=== PATIENT | female | born 1970 | race Caucasian/White ===

== ENCOUNTER → 2018-05-15 11:36 | Outpatient (CLI) | payer OTHER, SELFPAY ==
--- NOTE | 2018-05-15 11:42 | XR_ITS ---
XR ankle RT min 3V HISTORY: ITS.REASON: TWISTED LEG WALKING DOWN STEPS, RT LEG SWELLING ORDERING PHYSICIAN: Priscilla Neumann PATIENT AGE: 47 years Comparison: None FINDINGS: No fracture or dislocation. No lytic or blastic change. There is normal mineralization.. The joint spaces are well-preserved. No significant degenerative/arthritic changes. No erosive changes evident. IMPRESSION: Negative ankle, no acute finding
--- NOTE | 2018-05-15 11:42 | XR_ITS ---
XR femur RT 2V CLINICAL INDICATION: Pain and swelling ITS.REASON: TWISTED LEG WALKING DOWN STEPS, RT LEG SWELLING ORDERING PHYSICIAN: Priscilla Neumann PATIENT AGE: 47 years Comparison: None FINDINGS: No bony or joint abnormality. IMPRESSION: Negative right femur
--- NOTE | 2018-05-15 11:42 | XR_ITS ---
XR knee RT 3V HISTORY: Pain and swelling ITS.REASON: TWISTED LEG WALKING DOWN STEPS, RT LEG SWELLING ORDERING PHYSICIAN: Priscilla Neumann PATIENT AGE: 47 years COMPARISON: None FINDINGS: No fracture or dislocation. No lytic or blastic change. Normal mineralization. No significant arthritic changes evident. No other significant findings IMPRESSION: Negative Knee
--- NOTE | 2018-05-15 11:42 | XR_ITS ---
XR tibia fibula RT 2V CLINICAL INDICATION: Pain and swelling ITS.REASON: TWISTED LEG WALKING DOWN STEPS, RT LEG SWELLING ORDERING PHYSICIAN: Priscilla Neumann PATIENT AGE: 47 years Comparison: None FINDINGS: There is a small area of hyperostosis involving the proximal tibia is fairly and may be due to tug lesion. No fracture or dislocation. IMPRESSION: No acute finding
== END ==
PROVIDERS: PCP Nurse Practitioner; Visit Provider Nurse Practitioner
DX: M79.89 Other specified soft tissue disorders (principal)
CPT/HCPCS: 73552; 73562; 73590; 73610

== ENCOUNTER → 2018-12-21 08:47 | Outpatient (POV) | payer BC, SELFPAY | PROVIDERS: Visit Provider Specialist | DX: I70.213 Atherosclerosis of native arteries of extremities with intermittent claudication, bilateral legs (principal) | CPT/HCPCS: 95886; 95909 ==

== ENCOUNTER → 2018-12-29 11:57 | Outpatient (CLI) | payer BC, MEDICAID, SELFPAY | PROVIDERS: PCP Family Medicine; Visit Provider Specialist | DX: G47.30 Sleep apnea, unspecified (principal); G47.19 Other hypersomnia; R06.83 Snoring; R51 Headache | CPT/HCPCS: G0399 ==

== ENCOUNTER → 2018-12-30 14:49 | Outpatient (CLI) | payer BC, MEDICAID, SELFPAY ==
--- NOTE | 2018-12-30 14:51 | MR_ITS ---
MR angio head wo con CLINICAL INDICATION: Severe headache on the left Constant headaches ITS.REASON: evaluation for aneurysm, vascular malformation ORDERING PHYSICIAN: Kaur Hurley MD PATIENT AGE: 48 years Comparison:, 08/25/2017 TECHNIQUE: 3-D multislab [id number] images obtained without contrast with multi slab MIP reformats FINDINGS: No embolism, arteriovenous malformation, or intracranial occlusive process evident. No significant anatomical variants. Single shot MRV shows no evidence of sagittal sinus thrombosis. IMPRESSION: Negative MRA of the brain
== END ==
PROVIDERS: PCP Family Medicine; Visit Provider Specialist
DX: M54.2 Cervicalgia (principal); R51 Headache
CPT/HCPCS: 70544

== ENCOUNTER 2018-12-30 15:29 | Outpatient (RCR) | payer BC, MEDICAID, SELFPAY ==
--- NOTE | 2018-12-30 16:47 | HMH.PTOPEV ---
PT Outpatient Evaluation Rehab PT Outpatient Evaluation Start: 12/30/18 15:42 Freq: Status: Active Protocol: Document 12/30/18 16:16 ANGEL (Rec: 12/30/18 16:32 [email or web address] [id number]) Electronically Signed By Lance Meyer, PT 12/30/18 16:16 Outpatient Therapy Subjective History Subjective History Patient is a 48 year old female presenting to outpatient PT with reports of chronic cervical spine pain and bilateral wrist/hand numbness/tingling/pain. Pt reports hx of double segment cervical fusion approximately 4 years ago. She was most recently diagnosed with CTS bilaterally after NCV study. Comorbidities include COPD. Chief Complaint Pain Stiff Paresthesia Weakness Decreased Endbander Strength Symptom Type Ache Numbness Tingling Symptoms Relieved By Rest/Positioning Symptoms Aggravated By Lifting Prior Functional Limitations None Current Functional Limitations Lifting Symptom Description Constant but Variable Level of pain today (0-10) 5 Pain scale - at its best (0-10) 2 Pain scale - at its worst (0-10) 9 Cervical Eval Palpation Cervical Muscles L Upper Trapezius Cervical/Thoracic Palpation Findings Tenderness Posture Head/C-Spine Posture Sitting Position C-Spine Flattened Head/C-Spine Posture Standing Position C-Spine Flattened Flexibility Deficits Upper Trapezius Muscle Length (L) Moderate Tightness Levaetor Scapulae Muscle Length (L) Moderate Tightness Pectoralis Minor Muscle Length (L) Moderate Tightness Passive Joint Mobility Cervical PIVM Dec: R OA L OA R AA L AA R C2/3 L C2/3 R C3/4 L C3/4 R C4/5 L C4/5 R C5/6 L C5/6 R C6/7 L C6/7 R C7/T1 L C7/T1 AROM Cervical Spine Extension Active Range of 44 Mo
== END 2018-12-30 16:05 | disposition home or self-care (01) ==
LOC: PT 15:29
PROVIDERS: Visit Provider Specialist
DX: G56.03 Carpal tunnel syndrome, bilateral upper limbs (principal); M54.2 Cervicalgia
CPT/HCPCS: 97163

== ENCOUNTER → 2020-01-12 09:29 | Outpatient (CLI) | payer BC, OTHER, SELFPAY ==
--- NOTE | 2020-01-12 | CA_ITS ---
APPROVED REPORT Exam: Exercise Treadmill Technologist: Maine Borrego Ht: 5 ft 3 in Wt: 210 lbs BSA: 1.97 m2 HR: 87 bpm BP: 101/62 mmHg Indications: Shortness of Breath Medical History Medications: Omeprazole,,,,, Aspirin,,,,, TopIRAMATE,,,,, Estradiol,,,,, Tramadol,,,,, Cyclobenzaprine,,,,, Venlafaxine,,,,, DiPHENHYDRAMINE,,,,, MetaCLOPRAMIDE,,,,, NYstatin,,,,, Stress Test Details Test: Cosme HR Resting HR: 88 bpm Max Heart Rate (APMHR): 172 bpm Max HR Achieved: 123 bpm Target HR (85% APMHR): 146 bpm % of APMHR: 71 Recovery HR: 93 bpm BP Resting BP: 101.0/62.0 mmHg Max BP: 160.0/80.0 mmHg Recovery BP: 129.0/52.0 mmHg ECG Clinical Exercise duration: 04:02 min Highest Stage Achieved: Exercise capacity: 7.0 METs Stress ECG Conclusion Resting ECG: Normal sinus rhythm, right axis deviation Patient exercised 04:02 on Cosme Protocol. Test stopped due to shortness of air, fatigue. Symptoms: No chest pain Arrhythmias/Ectopy: Rare PAC ST-T Changes: Allowing for motion artifact during exercise, the ST response appears to be within normal for heart rate achieved. Conclusion: Normal GXT for heart rate achieved (72% of predicted maximum). GXT only (no imaging). Poor exercise tolerance. Test Summary REST . . . . . . . Sitting REST . . . . . . . Standing REST 07:12 0.0 0.0 88 . 101/ 62 . . Stage 1 01:00 10.0 1.7 103 . . . . Stage 1 02:00 10.0 1.7 110 . . . . Stage 1 . . . . . . . Shortness of Breath Stage 1 03:00 10.0 1.7 116 . 160/ 80 . . Stage 2 01:00 12.0 2.5 122 . . . . Stage 2 01:02 12.0 2.5 122 . . . Stop exercise at 04:02 RECOVERY 01:00 0.0 0.0 118 . . . . RECOVERY 02:00 0.0 0.0 111 . . . . RECOVERY 03:00 0.0 0.0 102 . 135/ 63 . . RECOVERY 04:00 0.0 0.0 98 . 129/ 52 . . RECOVERY 05:00 0.0 0.0 94 . 129/ 52 . . RECOVERY 05:23 0.0 0.0 93 . 117/ 53 . . Electronically signed by : Inocente Campos, 01/12/2020 18:14:17
== END ==
PROVIDERS: PCP Family Medicine; Visit Provider Nurse Practitioner
DX: R06.02 Shortness of breath (principal)
CPT/HCPCS: 93017

== ENCOUNTER → 2020-01-26 13:43 | Outpatient (CLI) | payer BC, OTHER, SELFPAY ==
--- NOTE | 2020-01-26 14:15 | CT_ITS ---
PROCEDURE: CT CHEST WO CON I [facility] closing the small the CLINICAL INDICATION: sob, fibrosis as seen on chest xray Shortness of air, chest heaviness COMPARISON: [facility] CT CHEST W/ CONTRAST from 09/02/2016 TECHNIQUE: Axial images obtained with sagittal and coronal reformats. All CT scans at the facility use one or more dose reduction, viz: automated exposure control, ma/kV adjustment per patient size (including targeted exams where dose is matched to indication, i.e. head), or iterative reconstruction technique. FINDINGS: HEART AND MEDIASTINAL STRUCTURES: There are few scattered small mediastinal lymph nodes the largest in the AP window on the left at 1.5 x 0 point 8 cm only slightly more prominent compared to the previous exam. Calcified nodes are present in the precarinal region. Normal heart size. No evidence of aortic aneurysm. The artifact is present from bone plate along the lower cervical spine LUNGS AND PLEURAL SPACES: There is some minimal scarring in the left lung base. No lobar consolidation or collapse. BONY STRUCTURES: Degenerative changes thoracic spine UPPER ABDOMEN: Enlarged liver with fatty infiltration of the liver. ADDITIONAL FINDINGS: No other significant abnormalities. IMPRESSION: 1. No change with no acute finding. 2. Hepatomegaly Dictated by: Aldo Dunbar MD 01/27/2020 06:00 Electronically signed by Aldo Dunbar MD in [place] 01/27/2020 06:00
--- NOTE | 2020-01-26 14:41 | HMH.ITSHM ---
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 []TOPAMAX 50 MG LORAZAPAM .5MG 3 X DAILY OLANZAPINE 10 MG CYCLOBENZAPRINE 10 MG 3X DAILY SUMATRIPTAN 100 MG PRN XANX .25 PRN TRAMADOL 50 MG PRN NAPROXIN 500 MG PRN LASIX 40 MG 2 X DAILY ALBUTEROL ENHALER BREO GABAPENTIN 300 MG 2 X DAILY EFFEXOR 225 MG DAILY VITAMIN D 3 POTASSIUM
== END ==
PROVIDERS: PCP Family Medicine; Visit Provider Urology
DX: R06.00 Dyspnea, unspecified (principal); R07.9 Chest pain, unspecified; R60.9 Edema, unspecified; R94.31 Abnormal electrocardiogram [ECG] [EKG]; Z82.49 Family history of ischemic heart disease and other diseases of the circulatory system
CPT/HCPCS: 71250; 93306

== ENCOUNTER → 2020-03-30 10:36 | Outpatient (CLI) | payer BC, OTHER, SELFPAY ==
--- NOTE | 2020-03-30 10:41 | US_ITS ---
PROCEDURE: US THYROID CLINICAL INDICATION: THYROMEGALY COMPARISON: CT CHEST WO CON from 01/26/2020 FINDINGS: Right lobe: 3.8 x 1.3 x 1.4 cm. No discrete nodule Left lobe: 3.8 x 1.5 x 1.2 cm. There is a questionable 6 mm slightly hypoechoic nodule along the lower pole posteriorly and could be due to a parathyroid gland. Isthmus: Isthmus is thickened at 7 mm Additional findings: IMPRESSION: Questionable small slightly hypoechoic nodule along the lower pole posteriorly possibly due to parathyroid gland otherwise negative. Suggest 6 month follow-up to confirm stability Dictated by: Aldo Dunbar MD 03/30/2020 17:22 Electronically signed by Aldo Dunabr MD in [place] 03/30/2020 17:22
== END ==
PROVIDERS: PCP Family Medicine; Visit Provider Nurse Practitioner Family
DX: R06.02 Shortness of breath (principal); J44.9 Chronic obstructive pulmonary disease, unspecified; E01.0 Iodine-deficiency related diffuse (endemic) goiter
CPT/HCPCS: 76536; 94060; 94640

== ENCOUNTER → 2020-04-17 10:56 | Outpatient (CLI) | payer BC, OTHER, SELFPAY ==
--- NOTE | 2020-04-17 11:09 | XR_ITS ---
PROCEDURE: XR RIBS LT MIN 3V W CXR1V CLINICAL INDICATION: RIB INJURY,LT RIB PAIN Left rib pain following injury COMPARISON: CXR CHEST(2 VIEWS-NOT PORTABLE) from 07/21/2016 FINDINGS: Unremarkable cardiovascular structures. Lungs are clear. No displaced fracture evident. No lytic or blastic change. IMPRESSION: No obvious rib fracture apparent. If pain persists, consider follow-up exam in 7-[address] with volumetric reformats. Dictated by: Aldo Dunbar MD 04/17/2020 11:33 Electronically signed by Aldo Dunbar MD in [place] 04/17/2020 11:33
== END ==
PROVIDERS: PCP Family Medicine; Visit Provider Nurse Practitioner Family
DX: R07.81 Pleurodynia (principal); S29.9XXA Unspecified injury of thorax, initial encounter
CPT/HCPCS: 71101

== ENCOUNTER 2020-04-22 09:28 | Emergency (ER) | payer BC, OTHER, SELFPAY ==
[2020-04-22 09:29] VITALS: BP 143/72; PULSE 84; RESP 18; TEMP 36.6; O2SAT 98; BMI 41.1
--- NOTE | 2020-04-22 09:36 | XR_ITS ---
PROCEDURE: XR RIBS LT MIN 3V W CXR1V Patient Age:49Y CLINICAL INDICATION: fall, pain Left chest left rib pain COMPARISON: CXR CHEST(2 VIEWS-NOT PORTABLE) from 07/21/2016 Chest from 06/07/2019 CT CHEST WO CON from 01/26/2020 XR RIBS LT MIN 3V W CXR1V from 04/17/2020 . FINDINGS: Multiple views of the left ribs were obtained. No acute findings. No rib fracture nor lesion evident. No pneumothorax but no pleural effusion. The A frontal view of the chest shows lungs to be well expanded. The interstitial lung markings slightly coarse/upper normal on today's higher contrast CXR as well as reflect history of smoking but no focal pneumonia. There may be some minimal linear scarring at the right infrahilar region but this is similar to previous studies. Anterior fat pad density at right cardiophrenic angle again noted and stable. No pneumothorax no pleural effusion . The heart is normal in size.. Normal pulmonary vascularity T-spine: Subtle dextrocurvature lower T-spine with subtle levocurvature upper T-spine noted Note the patient had a previous CT chest January 25/2020 which showed no remarkable chest wall or rib findings either. However if pain should persist or increase you may want to consider a follow-up CT chest or CT A chest with contrast IMPRESSION: Left ribs appear intact-no fracture nor lesion evident. No appreciable change vs recent 04/17/2020 left rib series the . Lungs clear with no acute findings Only suggestion minor chronic changes/note history of smoking . Subtle scoliosis T-spine again noted . The anterior fusion/discectomy lower C-spine again noted the the Dictated by: Zeeshan Florence MD 04/22/2020 10:19 Electronically signed by Zeeshan Florence MD in [place] 04/22/2020 10:19
--- NOTE | 2020-04-22 09:44 | HMH.EDGENADL ---
ED Disposition Clinical Impression: Rib pain Disposition: Home, Self-Care Condition on Discharge: Good Instructions: DI for Acute Pain -- Adult Prescriptions: Cyclobenzaprine HCl [Flexeril 10mg tablet] 5 mg PO TID PRN #5 tab PRN Reason: spasm Prescription Printed Naproxen 500 mg PO BID PRN #10 tab PRN Reason: pain Prescription Printed Referrals: Ruben Du MD [Primary Care Provider] - 3 days - Critical Care Critical Care Time: No Attestation: On 04/22/20, the high probability of a clinically significant, sudden or life threatening deterioration of the following system(s) required my full and direct attention, intervention and personal management. The time I documented below is in addition to time spent performing reported procedures but includes the following listed in this critical care notation. Medical Decision Making - Medical Records Medical records reviewed: Yes: I reviewed the patient's medical records. - Rajeev Inquiry Pt receiving controlled substance: No Vital Signs: 04/22/20 09:29 Temperature 98 F Temperature Source Oral Pulse Rate [Left Radial] 84 Respiratory Rate 18 Blood Pressure [Right Arm] 143/72 H Blood Pressure Mean [Right Arm] 95 Blood Pressure Position [Right Arm] Sitting 02 Sat by Pulse Oximetry 98 Oxygen Delivery Method Room Air Orders (Tests/Meds): ORDERS Category Date Time Status XR ribs LT min 3V w CXR1V Stat Exams 04/22/20 09:36 Ordered - Radiology Data #1 Image(s): Other (Ribs and chest) No acute fracture, no pneumothorax, no pneumonia Medical Decision Narrative: Patient with residual rib pain despite negative x-ray after a fall 1 week ago. She has been trying narcotics with no relief of symptoms. I have recommended anti-inflammatories and will prescribe muscle relaxers, follow-up with PCP in 2 to 3 days for reevaluation. Chest/rib x-ray shows no signs of pneumonia, pneumothorax or fracture. General Adult HPI - General Chief complaint: PAIN Stated complaint: AO [id number] left rib pain,home fall Time Seen by Provider: 04/22/20 09:40 Mode of Arrival: Ambulatory Limitations: No Limitations Description of Symptoms (Recalled from ER Triage Doc. by RN): to ed per pvt car with c/o lt side rib pain. pt states fell in shower last friday, seen by pcp last friday had neg. xray but told to return to pcp if no change in pain. pt states pain continues with no relief after taking lortab. pt denies any sob, fever, cough - History of Present Illness HPI narrative: This is a 49-year-old female who presents to the emergency department for left anterior rib pain for approximately 1 week after a fall in the shower. She had negative x-rays at her primary care provider, but has continued to have pain despite the use of Lortab. She states pain is worse with deep breathing. No fevers, cough, dyspnea. - Related Data Home Medications Medication Instructions Recorded Confirmed Gabapentin [Gabapentin 300mg Cap] 300 mg PO BID 09/30/18 01/31/20 LORazepam [Ativan 0.5mg 0.5 mg PO TID PRN 09/30/18 01/31/20 tablet] alprazolam 0.25 mg tablet 0.25 mg PO DAILY PRN tab 01/19/20 01/31/20 cyclobenzaprine 10 mg tablet 10 mg PO TID PRN 01/19/20 01/31/20 furosemide 40 mg tablet 40 mg PO BID tab 01/19/20 01/31/20 olanzapine 10 mg tablet 10 mg PO DAILY tab 01/19/20 01/31/20 potassium chloride 20 mEq 20 meq PO BID tab 01/19/20 01/31/20 tablet,extended release(part/cryst) sumatriptan succinate 100 mg tablet 100 mg PO Q2H PRN tab 01/19/20 01/31/20 tramadol 50 mg tablet 50 mg PO Q6H PRN 01/19/20 01/31/20 fluticasone furoate 200 1 inh INHALATION each 01/31/20 01/31/20 mcg-vilanterol 25 mcg/dose inhalation powder estradiol 1 mg tablet 1 mg PO DAILY tab 02/04/20 02/04/20 venlafaxine 75 mg capsule,extended 150 mg PO AM cap 02/04/20 release 24 hr Previous Rx's Medication Instructions Recorded naproxen 500 mg tablet 500 mg PO BID PRN 3
[2020-04-22 10:00] VITALS: BP 123/74; PULSE 78; RESP 98; TEMP 36.6
== END 2020-04-22 10:01 | disposition home or self-care (01) ==
PROVIDERS: Emergency Provider Emergency Medicine; PCP Family Medicine
DX: R07.81 Pleurodynia (principal); K21.9 Gastro-esophageal reflux disease without esophagitis; G43.709 Chronic migraine without aura, not intractable, without status migrainosus; J44.9 Chronic obstructive pulmonary disease, unspecified; F41.8 Other specified anxiety disorders; F17.210 Nicotine dependence, cigarettes, uncomplicated; Z79.899 Other long term (current) drug therapy; Z90.49 Acquired absence of other specified parts of digestive tract; Z90.79 Acquired absence of other genital organ(s)
CPT/HCPCS: 71101; 99282

== ENCOUNTER → 2020-07-17 10:40 | Outpatient (CLI) | payer BC, OTHER, SELFPAY ==
--- NOTE | 2020-07-17 10:53 | XR_ITS ---
PROCEDURE: XR KNEE RT 3V CLINICAL INDICATION: RT KNEE PAIN COMPARISON: CR [id number] XR knee RT 3V from 05/15/2018 FINDINGS: No fracture or dislocation. No lytic or blastic change. There is normal mineralization. There are mild tricompartmental osteoarthritic changes which is slightly worse compared to the previous exam. Other findings:None. IMPRESSION: Mild osteoarthritis otherwise negative Dictated by: Aldo Dunbar MD 07/17/2020 11:23 Aldo Dunbar MD in [place] 07/17/2020 11:23
== END ==
PROVIDERS: PCP Nurse Practitioner; Visit Provider Nurse Practitioner
DX: M25.462 Effusion, left knee (principal); M25.569 Pain in unspecified knee
CPT/HCPCS: 73562

== ENCOUNTER → 2020-07-18 14:43 | Outpatient (CLI) | payer BC, OTHER, SELFPAY | PROVIDERS: Visit Provider Nurse Practitioner | DX: Z23 Encounter for immunization (principal) ==

== ENCOUNTER → 2020-08-18 15:58 | Outpatient (CLI) | payer BC, OTHER, SELFPAY ==
--- NOTE | 2020-08-18 | MR_ITS ---
PROCEDURE: MR KNEE RT WO CON Referring Doctor: Priscilla Neumann Patient Age:50Y CLINICAL INDICATION: RT KNEE PAIN Right anterior and distal knee pain. No injury or trauma. Reports instability. COMPARISON: DX XR KNEE RT 3V from 07/17/2020 TECHNIQUE: Multiplanar multi sequence imaging on 1. 5 T liz MRI FINDINGS: The ACL and PCL appear intact. The MCL and lateral collateral ligament appear intact. . Joint effusion most evident at suprapatellar bursa with fluid slightly more evident overlying the medial compartment but there is also a Bear's cyst this extends down wrapping around the medial head of gastrocnemius muscle. Suspect some leakage or rupture of Bear's cyst-noting fluid tracking to inferiorly. (This fluid in soft tissues extends for over 9 cm length down to the inferior edge of today's image) Medial compartment. Narrowing of the medial compartment with diffuse chondral thinning and scuffing. Chondral loss is most evident central weight-bearing surface and continuing towards medial margin of medial compartment.-With this there is slight increased reactive bone signal along the medial aspect the joint-both at medial margin of the tibial plateau and medial margin of the femoral condyle.. Slight medial displacement of the body of the medial meniscus also observed Medial meniscal tear:: Mainly involves posterior horn. There is a a small irregular and slightly truncated posterior horn of medial meniscus evident with meniscal tearinvolving inferior surface inferior meniscal surface. Lateral compartment. Lateral compartment is fairly well maintained only areas minor chondral scuffing. The lateral meniscus overall intact-. Suggestion mild degenerative signal changes with question possible mild fraying or irregularity at the free margin anterior body towards anterior horn junction coronal image 18. Patellofemoral joint chondral scuffing and thinning is seen at the medial facet and vertical ridge of patella. There associated underlying reactive bone signal changes due, here at the mid patella superiorly due to these degenerative changes. Patellar tendon. Upper normal signal at the superior patella tendon up at its attachment upon patella. Would also note there is a generous length of this patella measures 4.4 cm length which is longer than the patellar tendon 3.5 cm length. Minimal superficial soft tissue edema is seen at the lateral knee above the knee joint overlying the iliotibial tract. Non-specific but warrants correlation IMPRESSION: 1.Medial Meniscal Tear-at posterior horn of medial meniscus 2.Degenerative Arthritic Changes Right Knee-most evident medial compartment followed by patellofemoral joint:. -. Medial compartment joint space narrowing. Chondral thinning and scuffing here, with some reactive bone signal changes medial aspect of joint -Patellofemoral Joint arthritic changes-. Cartilage thinning and loss at posterior patella, most evident medial facet. Associated reactive bone signal changes 3.Joint effusion. With Bear cyst. Suspect ruptured or leaking Bear cyst-note fluid tracking well inferior to knee along the gastrocnemius into the upper calf Dictated by: Zeeshan Florence MD 08/20/2020 23:22 Zeeshan Florence MD in [place] 08/20/2020 23:22
== END ==
PROVIDERS: PCP Family Medicine; Visit Provider Nurse Practitioner
DX: M25.361 Other instability, right knee (principal); S89.91XA Unspecified injury of right lower leg, initial encounter
CPT/HCPCS: 73721

== ENCOUNTER → 2020-09-05 12:22 | Outpatient (CLI) | payer BC, OTHER, SELFPAY ==
--- NOTE | 2020-09-05 12:26 | XR_ITS ---
PROCEDURE: XR KNEE RT 4V CLINICAL INDICATION: right knee pain Medial location COMPARISON: No exams were available for comparison FINDINGS: There is marked joint space narrowing medially with almost a [id number] appearance. There is minor spurring of the medial tibial plateau. There is slight narrowing of the lateral joint space. There is no significant spurring of the tibial spines. The patella is intact and there is no definite effusion. IMPRESSION: Prominent degenerate change medial joint space with almost bone on bone appearance Dictated by: Dr. Lei Diehl MD 09/05/2020 12:55 Dr. Lei Diehl MD in [place] 09/05/2020 12:55
== END ==
PROVIDERS: PCP Family Medicine; Visit Provider Orthopaedic Surgery
DX: M25.561 Pain in right knee (principal)
CPT/HCPCS: 73564

== ENCOUNTER → 2020-10-31 08:32 | Outpatient (CLI) | payer BC, OTHER, SELFPAY ==
--- NOTE | 2020-10-31 08:39 | XR_ITS ---
PROCEDURE: XR KNEE RT 4V CLINICAL INDICATION: RT partial knee replacement Knee replacement planning, pain COMPARISON: CR [id number] XR knee RT 3V from 05/15/2018 DX XR KNEE RT 3V from 07/17/2020 DX XR KNEE RT 4V from 09/05/2020 FINDINGS: Ball marker is placed along the medial, lateral, and anterior aspect of the knee. The joint spaces are well-preserved. No significant degenerative/arthritic changes. No erosive changes evident. Other findings:Moderate osteoarthritic changes are present at the medial compartment with mild osteoarthritis of the lateral compartment and patellofemoral joint. Small knee joint effusion noted. IMPRESSION: Osteoarthritis with small knee joint effusion Dictated by: Aldo Dunbar MD 10/31/2020 15:44 Aldo Dunbar MD in [place] 10/31/2020 15:44
== END ==
PROVIDERS: PCP Family Medicine; Visit Provider Orthopaedic Surgery
DX: M17.11 Unilateral primary osteoarthritis, right knee (principal)
CPT/HCPCS: 73564

== ENCOUNTER → 2020-11-07 10:57 | Outpatient (CLI) | payer BC, OTHER, SELFPAY ==
[2020-11-07 11:00] LABS: Microscopic, Urine URINE MICROSCOPIC (MICROSCOPIC)
--- NOTE | 2020-11-07 11:10 | XR_ITS ---
PROCEDURE: XR CHEST 2V CLINICAL HISTORY: surgery 11/13/2020; smoker Smoker, COMPARISON: CR Chest from 06/07/[address] CHEST WO CON from 01/26/2020 DX XR RIBS LT MIN 3V W CXR1V from 04/17/2020 CR XR RIBS LT MIN 3V W CXR1V from 04/22/2020 FINDINGS: The cardiomediastinal silhouette and pulmonary vascularity are within normal limits. The lungs are clear without infiltrates, suspicious nodules, or pleural effusions. Bone plate is present over lower cervical spine. IMPRESSION: No acute findings. Dictated by: Aldo Dunbar MD 11/07/2020 16:12 Aldo Dunbar MD in [place] 11/07/2020 16:12
[2020-11-07 11:50] LABS: Basophils # 0.1 K/mm3 (0-0.2); Basophils % 0.6 % (0.1-2.0); Eosinophils # 0.3 K/mm3 (0.0-0.4); Eosinophils % 3.5 % (0.1-12.0); Hematocrit 45.1 % (37.0-47.0); Hemoglobin 14.1 g/dL (12.2-16.2); Lymphocytes # 2.7 K/mm3 (0.7-4.5); Lymphocytes % 31.9 % (10-50); Mean Corpuscular HGB Conc 31.3 g/dL (31.8-35.4); Mean Corpuscular Hemoglobin 27.3 pg (27.0-31.2); Mean Corpuscular Volume 87.3 fl (81-99); Mean Platelet Volume 8.6 fl (7.4-10.4); Monocytes # 0.4 K/mm3 (0.1-1.0); Monocytes % 5.2 % (1.7-9.3); Neutrophils % 58.7 % (37.0-80.0); Platelet Count 312 K/mm3 (142-424); Red Blood Count 5.17 M/mm3 (4.20-5.40); Red Cell Distribution Width 15.7 % (11.5-17.5); White Blood Count 8.5 K/mm3 (4.8-10.8)
[2020-11-07 12:14] LABS: Chloride 107 mmol/L (98-107); Sodium 142 mmol/L (136-145)
[2020-11-07 12:15] LABS: Potassium 4.1 mmoL/L (3.5-5.1)
[2020-11-07 12:17] LABS: Alanine Aminotransferase 17 U/L (12-78); Albumin/Globulin Ratio 1.3 (1.1-1.8); Alkaline Phosphatase 133 U/L (38-126); Anion Gap 13.1 mEq/L (5-15); Aspartate Amino Transferase 20 U/L (14-36); Bilirubin,Total 0.3 mg/dl (0.2-1.3); Blood Urea Nitrogen 8 mg/dl (7-17); Carbon Dioxide 26 mmol/L (22.0-30.0); Estimated Glomerular Filt Rate 76 ml/min (>60); GFR (African American) 92 ML/MIN (>60); Globulin 3.1 g/dL (1.3-3.2); Total Protein,Serum 7.1 g/dl (6.3-8.2)
[2020-11-07 12:18] LABS: Calcium 9.4 mg/dl (8.4-10.2); Glucose 125 mg/dl (74-100)
[2020-11-07 12:45] LABS: Appearance,Urine CLEAR (Clear); Bilirubin,Urine Negative (Negative); Blood, Urine Negative (Negative); Color,Urine YELLOW (Yellow); Glucose,Urine (UA) Negative (Negative); Ketones,Urine Negative (Negative); Leukocyte Esterase,Urine 1+ (Negative); Nitrate,Urine Negative (Negative); PH,Urine 6.5 (5.0-8.5); Protein,Urine Negative (Negative)
[2020-11-07 12:51] LABS: Bacteria,Urine 1+ /lpf
== END ==
PROVIDERS: Visit Provider Orthopaedic Surgery
DX: Z01.818 Encounter for other preprocedural examination (principal); M17.11 Unilateral primary osteoarthritis, right knee
CPT/HCPCS: 36415; 71046; 80053; 81001; 83036; 85025; 87086; 87088; 87186

== ENCOUNTER → 2020-11-11 11:07 | Outpatient (CLI) | payer BC, OTHER, SELFPAY ==
[2020-11-11 12:11] LABS: Coronavirus 19 IgG Antibody Negative (Negative)
[2020-11-11 12:12] LABS: Coronavirus 19 IgM Antibody Negative (Negative)
== END ==
PROVIDERS: Visit Provider Orthopaedic Surgery
DX: Z01.818 Encounter for other preprocedural examination (principal); Z03.818 Encounter for observation for suspected exposure to other biological agents ruled out; M25.561 Pain in right knee
CPT/HCPCS: 36415; 86328; 86850

== ENCOUNTER 2020-11-13 11:01 | Observation (INO) | payer BC, OTHER, SELFPAY ==
[2020-10-05 13:28] VITALS: BMI 40.3
[2020-11-13] VITALS (19 sets, daily range): BP systolic 106–161; BP diastolic 52–88; PULSE 85–101; RESP 14–20; TEMP 36.3–43; O2SAT 90–95; BMI 39.6
--- NOTE | 2020-11-13 12:35 | HMH.ORTHHP ---
*Admission Date: 11/13/20 *Reason for consult:: Partial knee arthroplasty, right *History of present illness: This 50 year old female presents to the hospital today for elective medial unicompartmental knee replacement of her right knee. She has been having right pain for about 6 months or so. There is no history of any injury. She localizes the pain mainly to the medial aspect of the right knee with some occasional anterior knee pain. She also reports occasional radiation of the pain to the anteromedial aspect of the leg. She describes the pain is constant throbbing/aching sensation. She rates her pain 7 out of 10 at rest and a 9 out of 10 at worst. She states standing for long periods, weightbearing/walking and bending the knee aggravate her pain. She does not report significant worsening of pain on the stairs. She reports constant knee swelling and crepitation. She states the knee feels like it is going to give out but she has not had any falls. No history of any catching or locking sensation. She says she can walk a fair distance but reports worsening pain with walking. She reports occasional night pain and sleep disturbance. She says she has tried elevation, resting, heat, ice and NSAIDs at home without much benefit. At which point she was seen her PCP, who ordered two rounds of oral steroids that did help with the pain for a short duration of time. She takes naproxen 500 mg twice a day as needed, tramadol 50 mg every 6 hourly/as needed and gabapentin 300 mg twice a day. She has not had any intra-articular injections or physical therapy. No history of any significant injuries or previous surgeries on the right knee. She does not use any walking aids. No history of any hip pain on either side; no history of left knee pain. She reports history of back surgery about 17 years ago and reports numbness in her right foot and ankle at baseline. She also had neck surgery about 7 years ago. 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 Her medical history includes hyperlipidemia, anxiety, depression, COPD, migraine, GERD, arthritis and type 2 diabetes mellitus. She is a chronic smoker and smokes 1 and half pack of cigarettes a day. Please refer to my office note for full details. [facility] History I have reviewed the patient's past medical history: Yes Medical History: Reports:: Anxiety, Chronic Obstructive Pulmonary Disease (COPD), Depression, Gastroesophageal Reflux Disease(GERD), Migraine Denies:: Cancer, Diabetes Mellitus Type 1, Diabetes Mellitus Type 2, Internal Pacemaker, MRSA, Seizures *Have you ever received a pneumonia vaccine?: No *Have you received a flu vaccine this season?: No Other Medical History: Denies: Blood Transfusion Reaction Laterality Cases: Bilateral: Tonsillectomy Other Surgeries: Yes: Cardiac Catheterization, Cholecystectomy, Hysterectomy-Partial, Tubal Ligation, Other. No: Pacemaker Amputation: No Fractures: No - *Social History Last grade of school completed: 11th or 12th Smoking Status: Current every day smoker Tobacco Type: cigarettes # Packs/Day (cigarettes): 2 #Yrs smoked (if former smoker): 30 Alcohol Intake: never Alcohol Intake Frequency:: other Substance Use Type: denies use *Occupational Status:: unemployed Housing: house Household Members: spouse *Travel in the last 8 weeks: None - Psychiatric History Pschychiatric History:: Reports:: Anxiety, Depression Family Hx:: Hypertension, Cancer, Coronary Artery Disease Review of Systems - Review of Systems Review of systems:: pertinent systems reviewed and negative unless documented below Meds Home Medications Medication Instructions Recorded Confirmed Type Fluticasone Propionate [Flonase 1 spr NS DAILY 14 Days #9.9 ml 12/08/21 Rx 50mcg nasal spray 16gm] alprazolam 1 mg tablet 1 mg PO .COMPLEX PRN #45 tab 12/27/21 12/27/21 Rx cariprazine 3 mg capsule 3 mg PO DAILY #30 cap 12/27/21 12/27/21 Rx fluoxetine 20 mg capsule 20 mg PO DAILY #30 cap
--- NOTE | 2020-11-13 13:47 | HMH.PHAINT ---
MEDICATION RECONCILIATION COMPLETED ON PATIENT USING EXTERNAL FILL HISTORY FROM PHARMACY. -PINEDA GILMORE, [place]
--- NOTE | 2020-11-13 15:35 | SUR.OPER ---
1535-wound irrigated with betadine 17ml's mixed in 500ml's normal saline and left in wound for 3 minutes
--- NOTE | 2020-11-13 16:05 | XR_ITS ---
PROCEDURE: XR KNEE RT 2V Referring Doctor: Aamir Gay Patient Age:50Y CLINICAL INDICATION: s/p right parital knee arthroplasty COMPARISON: CR [id number] XR knee RT 3V from 05/15/2018 DX XR KNEE RT 3V from 07/17/2020 DX XR KNEE RT 4V from 09/05/2020 CR XR KNEE RT 4V from 10/31/2020 FINDINGS: portable right knee 2view: AP and lateral but nonweightbearing The patient has undergone a right knee partial/hemiarthroplasty. The prosthetic elements have been placed at the medial femoral condyle and medial tibial plateau and appear to be well seated overall appropriate articulation of the prosthetic elements.. The lateral compartment joint spaces fairly well maintained on this nonweightbearing study. Early marginal osteophytes are seen at lateral compartment but Joint effusion with air-fluid level here from the recent procedure but on the cross-table lateral view no other areas of IMPRESSION: Patient has gone a partial knee arthroplasty/hemiarthroplasty involving the medial compartment Dictated by: Zeeshan Florence MD 11/13/2020 20:36 Zeeshan Florence MD in [place] 11/13/2020 20:36
--- NOTE | 2020-11-13 16:40 | P.PN_ITS ---
[facility] Anesthesia Checklist - Patient Identification Patient Identification: Arm Band, Verbal (Name & ) - Structural Data Admitted From: Home Planned Operative Procedure/s: Right knee partial arthroplasty Consent for Planned Operative Procedure(s) Verified: Yes Verified Documents: Surgical Consent, History and Physical, Cardiac Clearance - NPO Status Verified Time NPO: 00:00 - Chart Verification Results Verified: CBC, BMP - Additional verifications Anesthesia Reactions: No Hx Blood Transfusions: No Blood Transfusion Reaction: No - Airway Assessment C-Spine Mobility Assessed: Yes TMJ Mobility Assessed: Yes Dentition: Edentulous - Neurological Assessment Level of Consciousness: Awake, Alert, Appropriate, Follows Commands Hx Seizures: No Numbness or tingling in extremities: No - Anesthesia Plan Anesthesia Risk discussed: Yes Anesthesia Plan: Verified ASA Class: III Anesthesia Type: Spinal (with ACB right knee) [facility] History I have reviewed the patient's past medical history: Yes Medical History: Reports:: Anxiety, Chronic Obstructive Pulmonary Disease (COPD), Depression, Gastroesophageal Reflux Disease(GERD), Hyperlipidemia, Migraine Denies:: Cancer, Diabetes Mellitus Type 1, Diabetes Mellitus Type 2, Internal Pacemaker, MRSA, Seizures *Have you ever received a pneumonia vaccine?: No *Have you received a flu vaccine this season?: No Other Medical History: Reports: Hypothyroidism. Denies: Blood Transfusion Reaction Comment:: Morbid obesity, chronic pain, Anesthesia experience/problems:: none Laterality Cases: Bilateral: Tonsillectomy Other Surgeries: Yes: Cardiac Catheterization, Cholecystectomy, Hysterectomy- Partial, Tubal Ligation, Other. No: Pacemaker Amputation: No Fractures: No - *Social History Last grade of school completed: 11th or 12th Smoking Status: Current every day smoker Tobacco Type: cigarettes # Packs/Day (cigarettes): 2 #Yrs smoked (if former smoker): 30 Alcohol Intake: never Alcohol Intake Frequency:: other Substance Use Type: denies use *Occupational Status:: unemployed Housing: house Household Members: spouse *Travel in the last 8 weeks: None - Psychiatric History Pschychiatric History:: Reports:: Anxiety, Depression Family Hx:: Hypertension, Cancer, Coronary Artery Disease
--- NOTE | 2020-11-13 16:42 | HMH.ANESI ---
[facility] Anesthesia Record Part I Intake, IV Amount: 1,600 Estimated blood loss (mL): 30 Urine output (mL): 250 Blood Products used (#): none Blood Pressure: 131/76 SaO2: 93 Pulse Rate: 101 Respiratory Rate: 14 Temperature: 98.2 F Patient is:: Awake, Stable Stable to PACU at:: 16:35
--- NOTE | 2020-11-13 16:49 | HMH.OPNOTE ---
Date of procedure: 11/13/20 Pre-op Diagnosis:: Medial compartment osteoarthritis, right knee Post-op Diagnosis:: Medial compartment osteoarthritis, right knee Procedure performed:: Partial knee replacement, right Surgeon:: Aamir Gay MD High Voltage Electrician(s):: Rolanda Varela PUBLICATIONS SALES REPRESENTATIVE:: Mo Reid Anesthesia: spinal Estimated blood loss (mL): 10 Clinical Note:: Patient is a 50-year-old female with predominantly medial compartment osteoarthritis of the right knee; there is [id number] appearance over the medial compartment with a slight varus deformity.? She presented to the office with unremitting severe pain not relieved by conservative management. The pain is advanced to the point that it is becoming a hazard for her with risk of falling and injuring herself.? Clinical examination and imaging is consistent with the above diagnosis. A right partial medial compartment knee arthroplasty is indicated to relieve the pain, improve function, reduce the risk of falls and improve quality of life.? Please refer to my office note for full details. Operative findings:: As noted during the preoperative evaluation, there is medial compartment [id number] degenerative arthritis. The medial meniscus is intact and torn. The ACL is intact. Minor degenerative changes noted over the patellofemoral compartment. The visible lateral compartment is well-preserved. Bone quality is good. A successful cemented medial compartment partial RIGHT knee arthroplasty was performed. Implants: Ingris Persona, posterior tibial, cemented, RIGHT medial- size E Ingris Persona partial femur, size 2 RIGHT, cemented Ingris Persona Vivacit-E highly cross-linked polyethylene, right medial partial articular surface, RIGHT size E- 8 mm Operative note:: Implants: Ingris Persona, posterior tibial, cemented, RIGHT medial- size E Ingris Persona partial femur, size 2 RIGHT, cemented Ingris Persona Vivacit-E highly cross-linked polyethylene, right medial partial articular surface, RIGHT size E- 8 mm Industry plastic products sales representative: Ced Stahl ([employer]) Condition: stable Disposition: PACU Specimens:: None Complications:: None
[2020-11-13 19:39] LABS: Microscopic,Cath URINE MICROSCOPIC (MICROSCOPIC)
[2020-11-13 19:44] LABS: Appearance,Urine/Cath CLEAR (Clear); Bilirubin,Cath Negative (Negative); Blood, Urine/Cath Negative (Negative); Color,Urine/Cath YELLOW (Yellow); Glucose,Urine/Cath (UA) Negative (Negative); Ketones,Urine/Cath Negative (Negative); Leukocyte Esterase,Cath Negative (Negative); Nitrate,Cath Negative (Negative); Protein,Urine/Cath Negative (Negative); Specific Gravity, Urine/Cath 1.015 (1.005-1.030); Urobilinogen,Cath 0.2 EU/dl (0.2)
[2020-11-13 20:38] LABS: Mucus,Urine/Cath Trace /lpf
[2020-11-13 20:39] LABS: Bacteria,Urine/Cath TRACE /lpf; CA Oxalate Crystals,Ur/Cath 1+ /lpf
[2020-11-14] VITALS (7 sets, daily range): BP systolic 115–126; BP diastolic 59–88; PULSE 77–91; RESP 18–22; TEMP 36.3–36.9; O2SAT 92–97; BMI 40.1
--- NOTE | 2020-11-14 04:32 | PC.NURSE ---
A&OX4. PT. MAIN COMPLAINT IS OF SHARP PAIN TO R KNEE; TX WITH PRN MEDS, MORPHINE REPORTED TO BE MOST EFFECTIVE. R KNEE DSG REMAINS C/D/I WITH POLAR PACK APPLIED TO ELEVATED EXTREMITY. C/O NAUSEA X1; RELIEVED WITH PHENERGAN. DENIES COUGH, EXPIRATORY WHEEZES NOTED. NO EPISODES OF VOMITING, DIZZINESS OR SOA.
[2020-11-14 06:44] LABS: Basophils % 0.1 % (0.1-2.0); Eosinophils % 0.1 % (0.1-12.0); Hematocrit 40.2 % (37.0-47.0); Hemoglobin 12.3 g/dL (12.2-16.2); Lymphocytes # 1.5 K/mm3 (0.7-4.5); Lymphocytes % 10.6 % (10-50); Mean Corpuscular HGB Conc 30.4 g/dL (31.8-35.4); Mean Corpuscular Hemoglobin 26.3 pg (27.0-31.2); Mean Corpuscular Volume 86.4 fl (81-99); Mean Platelet Volume 9.2 fl (7.4-10.4); Monocytes # 0.7 K/mm3 (0.1-1.0); Monocytes % 4.8 % (1.7-9.3); Neutrophils # 11.6 K/mm3 (1.8-7.8); Neutrophils % 84.2 % (37.0-80.0); Platelet Count 245 K/mm3 (142-424); Red Blood Count 4.66 M/mm3 (4.20-5.40); Red Cell Distribution Width 15.3 % (11.5-17.5); White Blood Count 13.8 K/mm3 (4.8-10.8)
[2020-11-14 06:54] LABS: Chloride 108 mmol/L (98-107); Sodium 139 mmol/L (136-145)
[2020-11-14 06:55] LABS: Potassium 3.6 mmoL/L (3.5-5.1)
[2020-11-14 06:57] LABS: Blood Urea Nitrogen 12 mg/dl (7-17); Creatinine Clearance Estimated 115 mL/min (50-200); Estimated Glomerular Filt Rate 59 ml/min (>60); GFR (African American) 71 ML/MIN (>60)
[2020-11-14 06:58] LABS: Anion Gap 8.6 mEq/L (5-15); Calcium 8.6 mg/dl (8.4-10.2); Carbon Dioxide 26 mmol/L (22.0-30.0); Glucose 141 mg/dl (74-100)
--- NOTE | 2020-11-14 07:16 | SW/DCPLANNER ---
Addendum entered by Aliyah Dubois 11/15/20 06:56: HOME HEALTH PT WAS ORDERED BY DR SALINAS... I SPOKE WITH PATIENT AND SHE CHOSE AND THIS WAS SET UP FOR PATIENT TO BE SEEN SOMETIME TODAY...ORDERS AND PATIENT INFORMATION FAXED.. Addendum entered by Aliyah Dubois 11/14/20 11:45: ORDERED BEDSIDE COMMODE AND HAVE SPOKEN WITH JESIKA AND THEY WILL CONTACT PATIENT TO WHERE IT WILL NEED TO BE DELIVERED. DR SALINAS STATED SHE WILL DISCHARGE LATER THIS AFTERNOON... Original Note: RECEIVED REFERRAL FOR THIS PATIENT FOR DISCHARGE PLANNING: I WENT IN TO SEE PATIENT THIS MORNING, SHE WAS SITTING UP IN BED AND HAVING BREAKFAST.. WE DISCUSSED HER DISCHARGE PLAN FOR WHEN SHE IS READY TO GO HOME WHICH I TOLD HER WOULD BE SOON.. SHE STATED SHE IS GOING HOME, SHE SAID HER IS OFF WORK FOR THE AND SAID SHE DOESN'T NEED ANY HOME HEALTH SERVICES.. SHE DID ASK FOR A BEDSIDE COMMODE.. SHE IS GOING TO USE IT TO SIT OVER HER TOILET FOR SUPPORT TO GET UP.. ONCE SHE HAS BEEN CLEARED TO START REHAB SHE WISHES TO COME BACK TO THE HOSPITAL.. ONCE SHE IS READY TO DISCHARGE, I WILL ORDER HER BSC AND HAVE IT DELIVERED TO HER HOME... NO OTHER ISSUES TO BE ADDRESSED AT THIS TIME...
--- NOTE | 2020-11-14 07:26 | P.CONPHA_ITS ---
[facility] Pharmacy VTE Monitoring - Patient Demographics Admission date: 11/13/20 Report Date: 11/14/20 Time: 07:26 Allergies/Adverse Reactions: Patient Allergies No Known Allergies Allergy (Verified 11/13/20 11:15) Height: 1.63 m Weight: 106.776 kg Patient Problems: Current Active Problems Primary osteoarthritis of right knee (Acute) - VTE Risk Labs: VTE Related Lab Results Hgb 12.3 g/dL (12.2-16.2) 11/14/20 06:31 Hct 40.2 % (37.0-47.0) 11/14/20 06:31 Plt Count 245 K/mm3 (142-424) 11/14/20 06:31 BUN 12 mg/dl (7-17) 11/14/20 06:31 Creatinine 1.00 mg/dl (0.52-1.04) 11/14/20 06:31 Estimated Creat Clear 115 mL/min (50-200) 11/14/20 06:31 Was VTE Risk Assessment Performed: Yes VTE Score: 5 VTE Risk Level: Low Risk - Prophylaxis VTE Prophylaxis Ordered?: Yes Types of VTE Prophylaxis: Pharmacological Pharmacologic Type: Other (XARELTO)
--- NOTE | 2020-11-14 08:11 | HMH.ANESII ---
[facility] Anesthesia Record Part II Discharge Time: 17:14 Destination: Medical Surgical Department PACU nurse assessment reviewed?: Yes Patient Condition:: Good Anesthesia Complications:: None Swallowing reflex intact?: Yes Cyanosis?: No Blood Pressure: 116/88 Pulse Rate: 91 Temperature: 97.5 F Mental Status: Alert & Oriented Pain level:: 0 Nausea and/or vomitting:: None Intake, IV Amount: 0
--- NOTE | 2020-11-14 09:59 | HMH.PTEV ---
Physical Therapy Evaluation Rehab PT IP Evaluation Start: 11/13/20 16:41 Freq: ONCE Status: Active Protocol: Document 11/14/20 09:56 PHORNE (Rec: 11/14/20 09:59 PHORNE [id number]) Subjective/History History History 50 yowf adm to [facility] for R PKA. PMH of COPD. She reports being independent with all activity prior to adm and lives with with 3 steps to enter the home. Subjective Subjective Pt reports expected post-op pain in R knee. Rehab PT IP Eval Objective Appearance Patient Behavior Appropriate Patient Orientation Person,Place,Time Difficulty following instructions none Speech Pattern Clear Ambulation Patient Able to Ambulate Yes Ambulation Observation IP General Gait Pattern Observation Antalgic Gait,Decrease Stride Lngth (R),Decrease Stride Lngth (L) Ambulation Distance (feet) 6 Ambulation Assistive Device Rolling Walker Ambulation Ability Contact Guard/Hand Hold Balance Ability to Arise Able, uses arms to help Sitting Balance Steady, safe Standing Balance Steady, wide stance Dynamic Sitting Balance Ability Good Dynamic Standing Balance Ability Good Transfers Bed Transfer Ability Contact Guard/Hand Hold Chair Transfer Ability Contact Guard/Hand Hold Sit to Stand Bed Transfer Ability Contact Guard/Hand Hold Sit to Stand Chair Transfer Ability Contact Guard/Hand Hold ROM All Extremities PT ROM Status WFL Abnormal ROM Comment except R knee 5-75 MMT All Extremities PT MMT WFL Abnormal MMT Grade except R LE grossly 3/5 Rehab PT IP prob,goals,plan Problems Date of Evaluation: 11/14/20 PT IP Problems Bed Mobility,Transfers,Gait Rehab Potential Rehab Potential Good Equipment Needs Assistive Devices Rolling / Wheeled Walker Plan PT Intervention Plan Bed Mobility,Transfers,Gait, Therapeutic Exercise PT Plan Frequency BID Duration LOS Discharge Goals Bed Transfer Ability Supervision/Stand by Sit to Stand Chair Transfer Ability Supervision/Stand by Ambulation Assistive Device Rolling Walker Ambulation Distance (feet) 30 Discharge Plan PT Discharge Plan Pt is appropriate to return home once medically stable. G -code Required No Eval Complexity Eval Charge Codes 53420 - Moderate Com
--- NOTE | 2020-11-14 11:26 | PC.NURSE ---
PT WOULD BENEFIT FROM A BED SIDE COMMODE AT D/C R/T TO POOR MOBILITY AND WEAKNESS WELL THE BATHROOM BEING FAR FROM THE BEDROOM IN THE PT'S HOME.
--- NOTE | 2020-11-14 13:55 | HMH.ORTHPN ---
Subjective Date: 11/14/20 Time: 13:00 Principal diagnosis: Status post partial knee arthroplasty, right Interval history: Patient is status post RIGHT partial knee arthroplasty post op day #1. Patient is sitting up in a chair. Says she is doing well and reports no problems. Patient reports moderate knee pain and says it's well-controlled with medication. No history of any nausea or vomiting. No history of any cough, chest pain, shortness of breath or palpitations. Patient is eating and drinking well. Patient says she managed to walk well in the room with the help of physical therapy using a walker. PN: Obj Ex Vital signs: Temp Pulse Resp BP Pulse Ox 97.4 F L 82 20 117/59 L 94 L 11/14/20 11:27 11/14/20 11:27 11/14/20 11:27 11/14/20 11:27 11/14/20 11:27 Narrative: Laboratory Results - last 24 hr 11/13/20 12:50: Urine Color Yellow, Urine Appearance Clear, Urine pH 6.0, Ur Specific Grubbs 1.015, Urine Protein Negative, Urine Glucose (UA) Negative, Urine Ketones Negative, Urine Blood Negative, Urine Nitrate Negative, Urine Bilirubin Negative, Urine Urobilinogen 0.2, Ur Leukocyte Esterase Negative, Urine WBC 3-5, Ur Squamous Epith Cells 3-5, Calcium Oxalate Crystal 1+, Urine Bacteria Trace 11/14/20 06:31: WBC 13.8 H, RBC 4.66, Hgb 12.3, Hct 40.2, MCV 86.4, MCH 26.3 L, MCHC 30.4 L, RDW 15.3, Plt Count 245, MPV 9.2, Neut % (Auto) 84.2 H, Lymph % (Auto) 10.6, [place] % (Auto) 4.8, Eos % (Auto) 0.1, Baso % (Auto) 0.1, Neut # (Auto) 11.6 H, Lymph # (Auto) 1.5, [place] # (Auto) 0.7, Eos # (Auto) 0.0, Baso # (Auto) 0.0 11/14/20 06:31: Sodium 139, Potassium 3.6, Chloride 108 H, Carbon Dioxide 26, Anion Gap 8.6, BUN 12, Creatinine 1.00, Estimated Creat Clear 115, Estimated GFR 59, Est GFR ( Amer) 71, Glucose 141 H, Calcium 8.6 Exam General appearance: alert, active, awake, no acute distress ENT: normal exam; mucous membranes moist Neck: Soft and supple, trachea midline, full range of movements Cardiovascular: regular rate & rhythm, normal peripheral pulses Respiratory: Speaks in full sentences; no respiratory distress noted Abdomen: Soft and nontender Neuro: alert, oriented x 3 Psych: normal and appropriate mood/affect; communicates well Extremities: On examination of the right knee, dressings are clean, dry and intact. I have changed the dressings today and there is no soakage noted. The incision looks clean dry and healthy. Knee range of motion is 0-70? of flexion. Distal pulses are 2+. Capillary refill is brisk. Sensation is intact to light touch throughout. She has good range of active foot and ankle movements. No motor deficits noted distally. Thigh and calf are soft and nontender. - Urinary Catheter Management Lawson Cath placed during this visit: no Progress Note: A&P (1) Primary osteoarthritis of right knee Status: Chronic (2) Status post right partial knee replacement Start date: 11/13/20 Status: Acute (3) COPD (chronic obstructive pulmonary disease) Status: Chronic (4) HLD (hyperlipidemia) Status: Chronic (5) Headache Status: Chronic Assessment and Plan for All Diagnoses:: I reviewed the intraoperative findings and procedure with the patient and her . I have given a paper copy of the postoperative knee x-ray to the patient. Patient started physical therapy and mobilization today with the help of physical therapist. Discontinue IV fluids as eating and drinking well. Continue DVT prophylaxis. Care management looking into discharge planning-appropriate equipment is being arranged for her to be discharged. She is safe and stable to go home today. Recommend home health physical therapy. Dressings to be changed as needed; patient has Dermabond Prineo dressing in place which should be left until seen in the office in 2 weeks time.
--- NOTE | 2020-11-14 15:20 | HMH.DCSUM ---
General - General Admission date:: 11/13/20 Discharge date: 11/14/20 HPI HPI: Patient is a 50-year-old female with advanced medial compartment degenerative arthritis of the right knee who is admitted to the hospital electively following an uncomplicated primary medial unicompartment arthroplasty of the right knee on 11/13/2020. Prior to surgery patient had long-standing pain, stiffness and disability secondary to advanced medial compartment degenerative arthritis in her right knee. She has not responded well to conservative management including NSAID, Tylenol, and intra-articular injections in the past. A medial unicompartmental knee arthroplasty is indicated to reduce the risk of falls, improve her pain and mobility and quality of life. The surgical and nonsurgical alternatives were discussed in detail with the patient as well as the risks and benefits of the surgery. Refer to my office note for full details. Hospital Course Hospital Course: Patient underwent an uncomplicated straightforward primary right knee medial unicompartmental arthroplasty on 11/13/2020. Following surgery patient was admitted to hospital and progressed well without any complications. The postoperative check x-ray was satisfactory with good alignment and fixation of the components. Patient progressed rapidly with physical therapy and was able to mobilize using a walker. On the first postoperative day, patient was discharged to home with home health on 11/14/2020. At the time of discharge patient has regained good quadriceps control and is able to actively straight leg raise. Patient has minimal pain and it is well controlled with as needed oral medication. The incision is healthy and no signs of any erythema, induration or discharge noted. The neurovascular status in both lower extremities is intact. Pedal pulses 2+ bilaterally and fully sensate distally. No clinical evidence of DVT noted. Patient was cleared for discharge by physical therapy. On the day of discharge, the patient has been stable. Patient's vital signs have been stable throughout and patient is afebrile at the time of discharge. She is being discharged home with home health. I have discussed about do's and don'ts for a total knee arthroplasty and following physical therapy instructions. Condition at discharge: improved and stable. Treatments and Procedures: Medial unicompartment knee arthroplasty, right knee; date of surgery 11/13/2020. Objective Vital signs: Temp Pulse Resp BP Pulse Ox 97.4 F L 82 20 117/59 L 94 L 11/14/20 11:27 11/14/20 11:27 11/14/20 11:27 11/14/20 11:27 11/14/20 11:27 no acute distress - *Routine HEENT Exam Head: Present: normocephalic Eye: Present: EOMI, PERRL ENT: Present: mucous membranes moist - *Routine Neck Exam Present: supple - *Routine Respiratory Exam Present: CTA bilaterally - *Routine Cardiovascular Exam Present: RRR - *Routine Abdominal Exam Present: soft, normoactive bowel sounds. Absent: tenderness - *Routine Extremities Exam Absent: cyanosis, clubbing Comments: On examination of the right knee, dressings are clean, dry and intact. I have changed the dressings today and there is no soakage noted. The incision looks clean dry and healthy. Knee range of motion is 0-70? of flexion. Distal pulses are 2+. Capillary refill is brisk. Sensation is intact to light touch throughout. She has good range of active foot and ankle movements. No motor deficits noted distally. Thigh and calf are soft and nontender. - *Routine Skin Exam Present: warm. Absent: rash - *Routine Neurological Exam Present: alert, oriented X3 - Routine Psychiatric Exam Present: normal affect, cooperative Results Labs on day of discharge: Labs from last 24 hours 11/14/20 11/14/20 11/13/20 06:31 06:31 12:50 WBC 13.8 H RBC 4.66 Hgb 12.3 Hct 40.2 MCV 86.4 MCH 26.3 L MCHC 30.4 L RDW 15.3 Plt Count
== END 2020-11-14 17:00 | disposition home health service (06) ==
LOC: 2ND 15:34
PROVIDERS: Admitting Provider Orthopaedic Surgery; PCP Family Medicine; Visit Provider Orthopaedic Surgery
PROC: (CPT 27447; principal; 2020-11-13 12:30)
DX: M17.11 Unilateral primary osteoarthritis, right knee (principal); E78.5 Hyperlipidemia, unspecified; E03.9 Hypothyroidism, unspecified; Z72.0 Tobacco use; J44.9 Chronic obstructive pulmonary disease, unspecified; Z79.51 Long term (current) use of inhaled steroids; Z79.890 Hormone replacement therapy; Z79.899 Other long term (current) drug therapy; G43.909 Migraine, unspecified, not intractable, without status migrainosus
CPT/HCPCS: 27446; 73560; 80048; 81001; 85025; 96374; 97110; 97116; 97162; 97530; C1713; C1776; G0378; J2704; J3370

== ENCOUNTER → 2020-11-28 13:12 | Outpatient (CLI) | payer BC, OTHER, SELFPAY ==
--- NOTE | 2020-11-28 13:17 | XR_ITS ---
PROCEDURE: XR KNEE RT 2V CLINICAL INDICATION: sp RT partial tka, dos 11/13/2020 COMPARISON: DX XR KNEE RT 3V from 07/17/2020 DX XR KNEE RT 4V from 09/05/2020 CR XR KNEE RT 4V from 10/31/2020 CR XR KNEE RT 2V from 11/13/2020 FINDINGS: Status post right knee hemiarthroplasty at the medial compartment. Mild osteoarthritic changes are present at the lateral compartment and patellofemoral joint. There is good alignment Other findings:Suprapatellar effusion noted. IMPRESSION: Good alignment status post medial hemiarthroplasty with mild osteoarthritic changes Dictated by: Aldo Dunbar MD 11/28/2020 18:39 Aldo Dunbar MD in [place] 11/28/2020 18:39
== END ==
PROVIDERS: PCP Family Medicine; Visit Provider Orthopaedic Surgery
DX: M25.561 Pain in right knee (principal); Z96.651 Presence of right artificial knee joint
CPT/HCPCS: 73560

== ENCOUNTER 2020-12-20 14:05 | Outpatient (RCR) | payer BC, OTHER, SELFPAY ==
--- NOTE | 2020-12-20 14:49 | HMH.PTOPEV ---
PT Outpatient Evaluation Rehab PT Outpatient Evaluation Start: 12/20/20 14:39 Freq: Status: Active Protocol: Document 12/20/20 14:39 [email or web address] (Rec: 12/20/20 14:49 [email or web address] [id number]) Electronically Signed By Santiago Tapia PT 12/20/20 14:39 Outpatient Therapy Subjective History Subjective History THis is the initial Physical Therapy evaluation for Angelina Kang. Pt is a 50 y/o female referred to PT s/p R partial knee arthroplasty. Pt reports she had partial knee done . Pt reports she had home health PT until approximately 1 week ago. Pt reprots she wants to continue therapy to allow continued strengthening of her knee. Chief Complaint Pain,Stiff,Swelling Symptom Type Ache,Throb,Burning Symptoms Relieved By Rest/Positioning,Ice Symptoms Aggravated By Sitting,Standing Prior Functional Limitations None Current Functional Limitations Housework,Driving,Standing, Squatting,Recreation Activity, Stairs Symptom Description Intermittent Level of pain today (0-10) 0 Pain scale - at its best (0-10) 0 Pain scale - at its worst (0-10) 3 Hip/Knee Eval Gait Observation General Gait Pattern Observation No Deviations/Normal Assistive Device Assistive Devices None / NA MMT right Hip Strength Reason Not Measured WFL Knee Strength Reason Not Measured WFL ROM Knee Extension Active Range of Motion ( 2 degrees) Knee Extension Passive Range of Motion ( 0 degrees) Knee Flexion Active Range of Motion ( 110 degrees) Outpatient Therapy Assessment Impairments Problems/Impairmments Impaired Range of Motion, Impaired Strength,Impaired Walking,Impaired Standing, Impaired Driving,Impaired Household Care,Impaired Stair Climbing,Impaired Squatting, Impaired Recreational Activities,Subjective C/O Pain Prognosis Rehab Potential Good Clinical Impression Consistent with Diagnosis Yes Short Term Goals Number of Weeks 3 Increase Range of Motion Yes: 115 knee flex Increase Ability to Walk Yes: 20+ minutes Increase Ability to Stand Yes: 20+ minutes Increase Ability to Drive/Ride in Car Yes: 10+ min
== END 2020-12-20 14:10 | disposition home or self-care (01) ==
LOC: PT 14:05
PROVIDERS: PCP Family Medicine; Visit Provider Orthopaedic Surgery
DX: M25.561 Pain in right knee (principal); Z96.651 Presence of right artificial knee joint
CPT/HCPCS: 97163

== ENCOUNTER → 2021-01-22 11:07 | Outpatient (CLI) | payer BC, OTHER, SELFPAY | PROVIDERS: PCP Family Medicine; Visit Provider Nurse Practitioner Family | DX: Z20.822 Contact with and (suspected) exposure to COVID-19 (principal) | CPT/HCPCS: U0003 ==

== ENCOUNTER → 2021-02-21 13:06 | Outpatient (CLI) | payer BC, OTHER, SELFPAY ==
--- NOTE | 2021-02-21 13:11 | XR_ITS ---
PROCEDURE: XR KNEE RT 3V CLINICAL INDICATION: s/p partial right knee replacement Follow-up surgery COMPARISON: DX XR KNEE RT 4V from 09/05/2020 CR XR KNEE RT 4V from 10/31/2020 CR XR KNEE RT 2V from 11/13/2020 CR XR KNEE RT 2V from 11/28/2020 FINDINGS: No fracture or dislocation. No lytic or blastic change. There is normal mineralization. Status post medial hemiarthroplasty. There is good alignment and no evidence of orthopedic complication. Other findings:None. IMPRESSION: No change status post medial hemiarthroplasty Dictated by: Aldo Dunbar MD 02/21/2021 13:48 Aldo Dunbar MD in [place] 02/21/2021 13:48
== END ==
PROVIDERS: PCP Family Medicine; Visit Provider Orthopaedic Surgery
DX: Z09 Encounter for follow-up examination after completed treatment for conditions other than malignant neoplasm (principal); M17.11 Unilateral primary osteoarthritis, right knee
CPT/HCPCS: 73562

== ENCOUNTER 2021-04-28 17:14 | Emergency (ER) | payer BC, OTHER, SELFPAY ==
[2021-04-28 17:15] VITALS: BP 135/88; PULSE 85; RESP 19; TEMP 37; O2SAT 98; BMI 35.6
--- NOTE | 2021-04-28 17:41 | HMH.EDUTC ---
[facility] – [place] Disposition Clinical Impression: UTI (urinary tract infection) Qualifiers: Urinary tract infection type: site unspecified Hematuria presence: without hematuria Qualified Code(s): N39.0 - Urinary tract infection, site not specified Disposition: Home, Self-Care Condition on Discharge: Good Instructions: Phenazopyridine, Nitrofurantoin Additional Instructions: *Increase fluids. Water not Soda or Tea *Start antibiotic immediately and be sure to take as ordered for the FULL length of time although you should start to see improvement over the next 48 hours *Pyridium as needed Remember this medication will turn your urine [place]. This is normal but it will stain what ever it gets on *You should not use Pyridium for more than 48 hours. If so , follow up with your primary physician to review urine culture and ensure that antibiotic is adequate for infection *Be SURE to follow up anytime for new or worsening symptoms with your family doctor. AND in 48 hours for urine culture results with your family doctor, if you do not have a doctor then you may call back to the [facility] for urine culture results and further treatment. We do recommend that you choose and establish care with a Primary Care Physician. AND follow up with them in 10-14 days to repeat UA to ensure infection is resolved and blood no longer present *Be sure to let your PCP know that we sent urine cultures from the [facility] so they can follow up to ensure that you area the on the correct antibiotic Call your doctor office and make appointment for 48 hours (2 days from today) to follow up and get the results of your urine culture and further treatment Prescriptions: Nitrofurantoin Monohyd/M-Cryst [Macrobid 100 mg Capsule] 100 mg PO BID #10 cap Transmission Status: Received by [id number] Phenazopyridine HCl [Pyridium 200mg Tablet] 200 pow PO TID #6 tab Transmission Status: Received by [id number] Referrals: Ruben Du MD [Primary Care Provider] - As needed Medical Decision Making - Rajeev Inquiry Pt receiving controlled substance: No Rajeev was queried for this patient: No Vital Signs: 04/28/21 17:15 04/28/21 17:42 Temperature 98.6 F 98.6 F Temperature Source Oral Pulse Rate 85 Pulse Rate [Right Brachial] 85 Respiratory Rate 19 19 Blood Pressure 135/88 Blood Pressure [Right Arm] 135/88 Blood Pressure Mean [Right Arm] 103 Blood Pressure Source [Right Arm] Automatic Cuff Blood Pressure Position [Right Arm] Sitting 02 Sat by Pulse Oximetry 98 Oxygen Delivery Method Room Air - Lab Data Lab results reviewed: Yes: I reviewed the patient's lab results. Lab Results 04/28/21 17:53: Urine Color Yellow, Urine Appearance Clear, Urine pH 7.0, Ur Specific [place] 1.020, Urine Protein Negative, Urine Glucose (UA) Negative, Urine Ketones Negative, Urine Blood Negative, Urine Nitrate Negative, Urine Bilirubin Negative, Urine Urobilinogen 0.2, Ur Leukocyte Esterase 3+ A Orders (Tests/Meds): ED MEDICATIONS Discontinued Medications Generic Name Dose Route Start Last Admin Trade Name Freq PRN Reason Stop Dose Admin Nitrofurantoin Macrocrystals 100 mg 04/28/21 17:52 04/28/21 17:58 Nitrofurantoin 100mg Capsule PO 04/28/21 17:53 100 mg ONCE ONE Administration Phenazopyridine HCl 200 mg 04/28/21 17:52 04/28/21 17:58 Phenazopyridine 200mg Tablet PO 04/28/21 17:53 200 mg ONCE ONE Administration ORDERS Category Date Time Status Urine Culture Stat Micro 04/28/21 17:30 Received Medical Decision Narrative: Patient reports has taken macrobid and pyridium in the past without reactions or complications [facility] – [place] HPI - General Stated complaint: poss UTI Time Seen by Provider: 04/28/21 17:42 Mode of Arrival: Ambulatory Source of Information: Patient Limitations: No Limitations Description of Symptoms (Recalled from Triage Doc. by RN): PATIENT C/O BURNING AND URINARY FREQUENCY X 3 DAYS HEENT Symptoms (Recalle
[2021-04-28 17:42] VITALS: BP 135/88; PULSE 85; RESP 19; TEMP 37; O2SAT 98
[2021-04-28 17:54] LABS: Apearance,Urine Clear (Clear); Color,Urine Yellow (Yellow)
[2021-04-28 17:55] LABS: Bilirubin,Urine Negative (Negative); Blood, Urine Negative (Negative); Glucose,Urine (UA) Negative (Negative); Ketones,Urine Negative (Negative); Protein,Urine Negative (Negative); UTC Leukocyte Esterase,Urine 3+ (Negative); UTC Nitrate,Urine Negative (Negative); Urobilinogen,Urine 0.2 EU/dl (0.2)
== END 2021-04-28 18:00 | disposition home or self-care (01) ==
PROVIDERS: Emergency Provider Nurse Practitioner; PCP Family Medicine
DX: N30.00 Acute cystitis without hematuria (principal); F41.8 Other specified anxiety disorders; E03.9 Hypothyroidism, unspecified; K21.9 Gastro-esophageal reflux disease without esophagitis; E78.5 Hyperlipidemia, unspecified; F17.210 Nicotine dependence, cigarettes, uncomplicated; Z79.899 Other long term (current) drug therapy
CPT/HCPCS: 81003; 87086; 87088; 87186; 99202; G0463

== ENCOUNTER → 2021-05-01 11:01 | Outpatient (CLI) | payer BC, OTHER, SELFPAY ==
--- NOTE | 2021-05-01 11:20 | CT_ITS ---
PROCEDURE: CT ABDOMEN PELVIS W CON CLINICAL INDICATION: RLQ ABD PAIN COMPARISON: CT CT CHEST WO CON from 01/26/2020 TECHNIQUE: IV Contrast: 75ML Isovue 370 Oral Contrast None Axial images obtained with sagittal and coronal reformats. All CT scans at the facility use one or more dose reduction, viz: automated exposure control, ma/kV adjustment per patient size (including targeted exams where dose is matched to indication, i.e. head), or iterative reconstruction technique. FINDINGS: There is some scar versus atelectasis in the lung bases and right middle lobe. Mild diffuse fatty infiltration of the liver. A few small calcifications in the spleen. No focal hepatic or splenic lesions. Gallbladder surgically absent. Pancreas and adrenal glands are normal. Single small nonobstructing stone is in the kidneys. No ureteral or bladder calculi. There is no upper abdominal lymphadenopathy. Some calcification of the abdominal aorta without aneurysm. There is a large multi loculated rim enhancing cystic mass in the right lower abdomen upper pelvis which may be arising from the right adnexa. This mass measures about 10 centimeters x 6.5 centimeters by 8 centimeters in greatest AP transverse and craniocaudal dimensions. The largest cystic component of the mass measures about 6 centimeters x 5 centimeters. There are both cystic and solid components to the mass. Findings are concerning for cystic ovarian neoplasm versus benign ovarian cystic mass. Abscess though less likely, be excluded. Correlation with MRI pelvis with and without IV contrast is recommended. Pelvic ultrasound more emergently to more definitively exclude ovarian torsion would be suggested. Appendix is normal. There is no free intraperitoneal air or fluid. No distended large or small bowel or bowel wall thickening. Slight diffuse thickening of the bladder wall suggesting mild cystitis. There are a few diverticula in the colon without diverticulitis. Uterus is surgically absent. There are no inguinal or femoral hernias. No enlarged iliac or inguinal chain lymph nodes. A few surgical clips noted in the lower abdomen anteriorly as well as in the pelvis. There are some diffuse degenerative changes of lumbar spine. No acute bony abnormality. IMPRESSION: Large multiloculated cystic mass in the right lower abdomen/upper pelvis which appears to be associated with the right adnexa as described. Findings are concerning for cystic ovarian neoplasm versus less likely benign ovarian cystic mass or abscess. Correlation with MRI pelvis with and without IV contrast is recommended. Pelvic ultrasound more emergently to more definitely exclude ovarian torsion is suggested. No free intraperitoneal air or fluid. Mild diffuse fatty infiltration of the liver with more focal area of fatty liver in the falciform ligament region. Normal appendix. Mild bilateral nephrolithiasis. Findings discussed by telephone with Desi Murray, nurse practitioner, on 05/01/2021 at approximately 1300 hours. Dictated by: Marco A Reilly MD 05/01/2021 13:11 Marco A Reilly MD in [place] 05/01/2021 13:11
[2021-05-01 11:35] LABS: Basophils # 0.1 K/mm3 (0-0.2); Basophils % 0.3 % (0.1-2.0); Eosinophils # 0.1 K/mm3 (0.0-0.4); Eosinophils % 0.8 % (0.1-12.0); Hematocrit 43.5 % (37.0-47.0); Hemoglobin 14.1 g/dL (12.2-16.2); Lymphocytes # 2.7 K/mm3 (0.7-4.5); Lymphocytes % 18.4 % (10-50); Mean Corpuscular HGB Conc 32.3 g/dL (31.8-35.4); Mean Corpuscular Hemoglobin 27.2 pg (27.0-31.2); Mean Corpuscular Volume 84.3 fl (81-99); Mean Platelet Volume 8.4 fl (7.4-10.4); Monocytes % 6.4 % (1.7-9.3); Neutrophils % 74.1 % (37.0-80.0); Platelet Count 229 K/mm3 (142-424); Red Blood Count 5.16 M/mm3 (4.20-5.40); Red Cell Distribution Width 15.2 % (11.5-17.5); White Blood Count 14.9 K/mm3 (4.8-10.8)
[2021-05-01 12:31] LABS: Chloride 104 mmol/L (98-107); Potassium 3.3 mmoL/L (3.5-5.1); Sodium 140 mmol/L (136-145)
[2021-05-01 12:33] LABS: Blood Urea Nitrogen 5 mg/dl (7-17); Estimated Glomerular Filt Rate 89 ml/min (>60); GFR (African American) 108 ML/MIN (>60)
[2021-05-01 12:34] LABS: Alanine Aminotransferase 10 U/L (12-78); Albumin Level 4.1 g/dl (3.5-5.0); Albumin/Globulin Ratio 1.3 (1.1-1.8); Alkaline Phosphatase 153 U/L (38-126); Anion Gap 15.3 mEq/L (5-15); Aspartate Amino Transferase 18 U/L (14-36); Bilirubin,Total 0.5 mg/dl (0.2-1.3); Carbon Dioxide 24 mmol/L (22.0-30.0); Globulin 3.2 g/dL (1.3-3.2); Glucose 63 mg/dl (74-100); Total Protein,Serum 7.3 g/dl (6.3-8.2)
--- NOTE | 2021-05-01 15:58 | US_ITS ---
PROCEDURE: Complete pelvic ultrasound CLINICAL INDICATION: RLQ ABD MASS COMPARISON: US PTV US PELVIS-TRANSVAGINAL ONLY from 08/27/[address] ABDOMEN PELVIS W CON from 05/01/2021 FINDINGS: Uterus is surgically absent. There is a right adnexal complex cystic mass with the largest component of the cystic structure measuring 6-7 centimeters. The remainder of the mass is not well visualized due to body habitus. No definitive vascular flow is seen to what is suspected to be the right ovary. Therefore torsion though unlikely is not able to be completely excluded. No free fluid in the pelvis. Left ovary was not visualized. IMPRESSION: Prior hysterectomy. Right adnexal complex cystic mass with the largest cystic component of the mass measuring about 6-7 centimeters. MRI pelvis with and without IV contrast is recommended for further assessment. Vascular flow to what is suspected to be the right ovary was not able to be definitively shown. Therefore ovarian torsion though unlikely is not able to be completely excluded. Findings were discussed by telephone with Deis Murray, nurse practitioner, on 05/01/2021 at approximately 1630 hours. Dictated by: Marco A Reilly MD 05/01/2021 16:47 Marco A Reilly MD in [place] 05/01/2021 16:47
== END ==
PROVIDERS: PCP Nurse Practitioner Family; Visit Provider Nurse Practitioner Family
DX: R10.31 Right lower quadrant pain (principal); R19.03 Right lower quadrant abdominal swelling, mass and lump
CPT/HCPCS: 74177; 76830; 80053; 85025; Q9967

== ENCOUNTER → 2021-05-03 15:50 | Outpatient (CLI) | payer BC, OTHER, SELFPAY ==
--- NOTE | 2021-05-03 15:53 | MR_ITS ---
PROCEDURE INFORMATION: Exam: MR Pelvis Without and With Contrast; Uterus and Cervix Exam date and time: 05/03/2021 3:53 PM Age: 50 years old Clinical indication: Patient HX: RT sided pelvic pain, abnormal CT & US, painful to stand or lay flat. 20ml prohance; Additional info: Right lower quadrant abdominal pain, mass of uterine adnexa TECHNIQUE: Imaging protocol: Magnetic resonance images of the pelvis without and with intravenous contrast. Exam focused on the uterus and cervix. Contrast material: PROHANCE; Contrast volume: 20 ml; Contrast route: IV; COMPARISON: 1. CT ABDOMEN PELVIS W CON 05/01/2021 12:18 PM 2. US TRANSVAGINAL 05/01/2021 4:06:08 PM FINDINGS: Intraperitoneal space: Again noted is a complex mass in the right pelvis. The mass is partly solid and partly cystic. It measures 10.4 x 7.7 x 8.8 cm. The largest cystic component measures 5.9 cm. No enhancement the solid components. There is rim enhancement of the margins of the cystic components. The uterus is absent. The left ovary is not identified with certainty. Reproductive: No free peritoneal fluid or gas. Bones/joints: Unremarkable. Soft tissues: Unremarkable. Appendix: No evidence for appendicitis. Normal diameter. No inflammation. Other findings: The mass in the right pelvis creates mass effect on the urinary bladder. The urinary bladder is otherwise unremarkable. IMPRESSION: Complex mass in the right pelvis. Differential considerations include cystadenoma, cystadenocarcinoma, and tubo-ovarian abscess.
== END ==
PROVIDERS: PCP Nurse Practitioner Family; Visit Provider Nurse Practitioner Family
DX: R10.31 Right lower quadrant pain (principal); D72.9 Disorder of white blood cells, unspecified; N94.89 Other specified conditions associated with female genital organs and menstrual cycle
CPT/HCPCS: 72197; A9576

== ENCOUNTER 2021-10-19 14:33 | Emergency (ER) | payer BC, OTHER, SELFPAY ==
[2021-10-19 16:10] VITALS: BP 128/66; PULSE 84; RESP 18; TEMP 37.1; O2SAT 96; BMI 38.6
[2021-10-19 16:18] LABS: Apearance,Urine Cloudy (Clear); Color,Urine Amber (Yellow)
[2021-10-19 16:19] LABS: Bilirubin,Urine 1+ (Negative); Blood, Urine Negative (Negative); Glucose,Urine (UA) Negative (Negative); Ketones,Urine Negative (Negative); Protein,Urine 1+ (Negative); Specific Gravity, Urine > 1.030 (1.005-1.030); UTC Leukocyte Esterase,Urine Trace (Negative); UTC Nitrate,Urine Positive (Negative); Urobilinogen,Urine 1 EU/dl (0.2)
--- NOTE | 2021-10-19 16:19 | HMH.EDUTC ---
[facility] [place] Clinical Impression: UTI (urinary tract infection) Qualifiers: Urinary tract infection type: site unspecified Hematuria presence: with hematuria Qualified Code(s): N39.0 - Urinary tract infection, site not specified Abdominal pain Qualifiers: Abdominal location: unspecified location Qualified Code(s): R10.9 - Unspecified abdominal pain Disposition: Home, Self-Care Condition on Discharge: Good Instructions: Urinary Tract Infection, Urine Culture, DI for Urinary Tract Infection (UTI) Additional Instructions: Drink plenty of fluids. Take tylenol or ibuprofen for pain or fever. Take the medications as directed. Follow up with your regular doctor. GO TO THE ER FOR ANY WORSENING SYMPTOMS The pyridium will make your urine turn orange, this is an expected side effect. It will stain your clothes if it comes into contact with them. Prescriptions: Ondansetron [Zofran 4mg ODT] 4 mg PO Q8HP PRN #20 tab PRN Reason: Nausea Transmission Status: Received by [facility] Ciprofloxacin HCl [Cipro 500mg Tab] 500 mg PO BID 7 Days #14 tab Transmission Status: Received by [facility] Phenazopyridine HCl [Pyridium 200mg Tablet] 200 pow PO TID #6 tab Transmission Status: Received by [facility] Referrals: Ruben Du MD [Primary Care Provider] - Forms: Work/School Release Time of Disposition: 16:44 Medical Decision Making - Medical Records Medical records reviewed: No: I reviewed the patient's medical records. - Rajeev Inquiry Pt receiving controlled substance: No Vital Signs: 10/19/21 16:10 10/19/21 16:47 Temperature 98.8 F 98.8 F Temperature Source Oral Pulse Rate 84 Pulse Rate [Left] 84 Respiratory Rate 18 18 Blood Pressure 128/66 Blood Pressure [Right Arm] 128/66 Blood Pressure Mean [Right Arm] 86 02 Sat by Pulse Oximetry 96 - Lab Data Lab Results 10/19/21 16:18: Urine Color [place], Urine Appearance Cloudy, Urine pH 6.0, Ur Specific [place] > 1.030 H, Urine Protein 1+, Urine Glucose (UA) Negative, Urine Ketones Negative, Urine Blood Negative, Urine Nitrate Positive A, Urine Bilirubin 1+ A, Urine Urobilinogen 1, Ur Leukocyte Esterase Trace Orders (Tests/Meds): ORDERS Category Date Time Status Urine Culture Stat Micro 10/19/21 16:05 Results [facility] [place] - General Stated complaint: Abd pain Time Seen by Provider: 10/19/21 16:19 Mode of Arrival: Ambulatory Source of Information: Patient Limitations: No Limitations Description of Symptoms (Recalled from Triage Doc. by RN): pt c/o RLQ and LLQ abd pain. pt states she has a mass on her R overy with a cyst on it. pt was scheduled for surgery at , however, she said the pain went away and never had the procedure. pt states it is not malignant but has not had a biopsy. HEENT Symptoms (Recalled from RN notes): No Resp Symptoms (Recalled from RN notes): No Skin Symptoms (Recalled from RN notes): No MS Symptoms (Recalled from RN notes): No Functional Status (Recalled from RN notes): wnl - History of Present Illness Provider Complaint: She c/o lower abdominal pain that goes all across her lower abdomen and around both her her sides to her back. Her symptoms began yesterday, but she has episodes like this kind of frequently. She gets frequent uti's and she has a large cyst on her right ovary that was supposed to be removed by surgery, but she stopped hurting then and did not have the surgery. - Related Data Previous Rx's Medication Instructions Recorded alprazolam 1 mg tablet 1 mg PO HS PRN #45 tab 09/20/21 cariprazine 3 mg capsule 3 mg PO DAILY #30 cap 10/15/21 fluoxetine 20 mg capsule 20 mg PO DAILY #30 cap 10/15/21 venlafaxine 150 mg 150 mg PO DAILY #30 cap 10/15/21 capsule,extended release 24 hr venlafaxine 75 mg capsule,extended 75 mg PO .COMPLEX #30 cap 10/15/21 release 24 hr Ciprofloxacin HCl [Cipro 500mg 500 mg PO BID 7 Days #14 tab 10/19/21 Tab] Ondansetr
[2021-10-19 16:47] VITALS: BP 128/66; PULSE 84; RESP 18; TEMP 37.1
== END 2021-10-19 16:59 | disposition home or self-care (01) ==
PROVIDERS: Emergency Provider Nurse Practitioner Family; PCP Family Medicine
DX: N39.0 Urinary tract infection, site not specified (principal); J44.9 Chronic obstructive pulmonary disease, unspecified; K21.9 Gastro-esophageal reflux disease without esophagitis; E78.5 Hyperlipidemia, unspecified; E03.9 Hypothyroidism, unspecified; F41.8 Other specified anxiety disorders; F17.210 Nicotine dependence, cigarettes, uncomplicated
CPT/HCPCS: 81003; 87086; 87088; 87186; 99202; G0463

== ENCOUNTER 2021-12-08 14:22 | Emergency (ER) | payer BC, OTHER, SELFPAY ==
[2021-12-08 14:47] VITALS: BP 145/77; PULSE 81; RESP 18; TEMP 36.6; O2SAT 96; BMI 38.6
--- NOTE | 2021-12-08 14:58 | HMH.EDUTC ---
[facility] – [place] Disposition Clinical Impression: Maxillary sinusitis, acute Qualifiers: Recurrence: non-recurrent Qualified Code(s): J01.00 - Acute maxillary sinusitis, unspecified Disposition: Home, Self-Care Condition on Discharge: Good Instructions: Sinusitis, DI for Sinusitis Additional Instructions: Start antibiotic patient to take as ordered for a full length of time even if you feel better. Sinus infections do not get better overnight. It may take 2-3 days to notice much improvement so be sure to use conservative measures as discussed for symptoms. Flonase 1 spray each nostril daily to help with nasal congestion, sinus and ear pressure/information Increase fluids Humidifier/vaporizer as needed Tylenol and ibuprofen as needed for fever or pain. If symptoms do not improve or get worse return or be seen in the ER Follow-up with primary care this week Prescriptions: Fluticasone Propionate [Flonase 50mcg nasal spray 16gm] 1 spr NS DAILY 14 Days #9.9 ml Prescription Printed Azithromycin [Zithromax 250mg tab] 250 mg PO DIRECTED #6 tab Prescription Printed Referrals: Ruben Du MD [Primary Care Provider] - Time of Disposition: 15:03 Medical Decision Making - Rajeev Inquiry Pt receiving controlled substance: No Vital Signs: 12/08/21 14:47 Temperature 97.9 F Temperature Source Oral Pulse Rate [Left] 81 Respiratory Rate 18 Blood Pressure [Right Arm] 145/77 H Blood Pressure Mean [Right Arm] 99 02 Sat by Pulse Oximetry 96 [facility] – [place] HPI - General Chief complaint: Urgent Treatment Center Stated complaint: possible sinus infection Time Seen by Provider: 12/08/21 14:59 Mode of Arrival: Ambulatory Source of Information: Patient Limitations: No Limitations Description of Symptoms (Recalled from Triage Doc. by RN): pt c/o sinus pressure/pain and a TORRES HEENT Symptoms (Recalled from RN notes): Yes (sinus pain/pressure and a TORRES) Resp Symptoms (Recalled from RN notes): No Skin Symptoms (Recalled from RN notes): No MS Symptoms (Recalled from RN notes): No Functional Status (Recalled from RN notes): wnl - History of Present Illness Provider Complaint: 51 yr old female presnets for sinus pressure,pain,congestion(yellow dark), and melvi ear pain - Related Data Previous Rx's Medication Instructions Recorded alprazolam 1 mg tablet 1 mg PO .COMPLEX PRN #45 tab 11/27/21 cariprazine 3 mg capsule 3 mg PO DAILY #30 cap 11/27/21 fluoxetine 20 mg capsule 20 mg PO DAILY #30 cap 11/27/21 venlafaxine 150 mg 150 mg PO DAILY #30 cap 11/27/21 capsule,extended release 24 hr venlafaxine 75 mg capsule,extended 75 mg PO .COMPLEX #30 cap 11/27/21 release 24 hr Azithromycin [Zithromax 250mg 250 mg PO DIRECTED #6 tab 12/08/21 tab] Fluticasone Propionate [Flonase 1 spr NS DAILY 14 Days #9.9 ml 12/08/21 50mcg nasal spray 16gm] Allergies Allergy/AdvReac Type Severity Reaction Status Date / Time No Known Allergies Allergy Verified 10/09/21 08:28 - Worker's Comp Is this a Worker's Comp case?: No H History - Hepatitis A Screen Drug use history?: No High risk sexual behaviors?: No History of sexually transmitted infection?: No Currently employed?: No Childcare worker?: No Do you have indoor plumbing?: Yes Do you have electricity?: Yes Attestation statement:: This patient has been screened for Hepatitis A risk factors. I have reviewed the patient's past medical history: Yes Medical History: Reports:: Anxiety, Chronic Obstructive Pulmonary Disease (COPD), Depression, Gastroesophageal Reflux Disease(GERD), Hyperlipidemia, Migraine Denies:: Cancer, Diabetes Mellitus Type 1, Diabetes Mellitus Type 2, Internal Pacemaker, MRSA, Seizures Other Medical History: Reports: Arthritis, Hypothyroidism. Denies: Blood Transfusion Reaction Comment: Morbid obesity, chronic pain, Laterality Cases: Bilateral: Tonsillectomy Other Surgeries: Yes: Cardiac Catheterization, Cholecystectomy, Hysterectomy-Partial, Tubal Ligatio
[2021-12-08 15:18] VITALS: BP 145/77; PULSE 81; RESP 18; TEMP 36.6
== END 2021-12-08 15:19 | disposition home or self-care (01) ==
PROVIDERS: Emergency Provider Nurse Practitioner Family; PCP Family Medicine
DX: J01.00 Acute maxillary sinusitis, unspecified (principal); J44.9 Chronic obstructive pulmonary disease, unspecified; E03.9 Hypothyroidism, unspecified; F41.8 Other specified anxiety disorders; E78.5 Hyperlipidemia, unspecified; F17.210 Nicotine dependence, cigarettes, uncomplicated
CPT/HCPCS: 99202; G0463

== ENCOUNTER → 2022-07-25 13:39 | Outpatient (CLI) | payer BC, OTHER, SELFPAY ==
--- NOTE | 2022-07-25 13:47 | MR_ITS ---
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 WHILE PICKING THE PATIENT UP SHE HAD A SHOOTING PAIN IN HER LOW BACK. NOW SHE IS HAVING CHRONIC PAIN EVERY DAY WITH IT. FINDINGS: Multiplanar MR imaging of the lumbar spine was performed without contrast. On the sagittal T2-weighted images, disc degeneration is seen at multiple levels. There are endplate changes, greatest at L4-5 and L5-S1. There are several hemangiomas. The vertebral alignment is normal. There is a mild, acute L1 superior endplate compression fracture with 20% loss of height. No bony mass is identified. The conus is seen at approximately the L1 level and has an unremarkable appearance. L1-2: There is an annular disc bulge with facet arthropathy and vertebral osteophytes. There is mild bilateral neural foraminal narrowing. L2-3: There is an annular disc bulge with facet arthropathy and vertebral osteophytes. There is mild bilateral neural foraminal narrowing. L3-4: There is an annular disc bulge with facet arthropathy. There is a small central disc protrusion with mild bilateral neural foraminal narrowing. There is mild central canal stenosis with AP diameter of the thecal sac measuring 8 mm. L4-5: There is an annular disc bulge with facet arthropathy and vertebral osteophytes. There is a central disc protrusion which indents the thecal sac and with contact of the L5 nerve roots. There is moderate central canal stenosis with AP diameter of thecal sac measuring 6 mm. There is moderate bilateral neural foraminal narrowing. L5-S1: There is an annular disc bulge with facet arthropathy and vertebral osteophytes. There is severe bilateral neural foraminal narrowing. IMPRESSION: Mild, acute L1 superior endplate compression fracture. Multilevel degenerative disc disease with disc protrusions at L3-4 and L4-5, mild to moderate central canal stenosis and contact of the L5 nerve root. Severe bilateral neural foraminal narrowing at L5-S1. Reviewed, Interpreted and Dictated by Joon Heart III, MD Transcribed by Mali Long Authenticated and [facility]
== END ==
PROVIDERS: PCP Nurse Practitioner Family; Visit Provider Nurse Practitioner Family
DX: M54.50 Low back pain, unspecified (principal); Z98.890 Other specified postprocedural states
CPT/HCPCS: 72148; 76376

== ENCOUNTER → 2022-09-06 09:21 | Outpatient (CLI) | payer OTHER, SELFPAY ==
--- NOTE | 2022-09-06 09:27 | XR_ITS ---
FINAL REPORT TECHNIQUE: Bone mineral density was calculated of the lumbar spine and hip. CLINICAL HISTORY: . screening FINDINGS: DEXA BONE DENSITY AXIAL SKELETON Using L1-4, the bone mineral density of the spine is 1.231 g/cm2, corresponding to T-score of 1.7. Normal bone mineral density. Using the right hip, the bone mineral density of the femoral neck is 0.807 g/cm2, corresponding to a T-score of -0.4. NOTE: T-score: Standard deviation compared with peak bone mass of young adult mean. *Following the recommendations of the International Society of Bone densitometry, classification of hip BMD is based on the lower of two T-scores; total hip or femoral neck. IMPRESSION: Normal bone mineral density of the lumbar spine and hip. Reviewed, Interpreted and Dictated by Joon Heart III, MD Transcribed by Staci Lacy Authenticated and [facility]
[2022-09-06 10:28] LABS: Basophils # 0.1 K/mm3 (0-0.2); Basophils % 0.9 % (0.1-2.0); Eosinophils # 0.3 K/mm3 (0.0-0.4); Hematocrit 45.7 % (37.0-47.0); Hemoglobin 14.4 g/dL (12.2-16.2); Mean Corpuscular HGB Conc 31.4 g/dL (31.8-35.4); Mean Corpuscular Hemoglobin 25.6 pg (27.0-31.2); Mean Corpuscular Volume 81.6 fl (81-99); Mean Platelet Volume 8.5 fl (7.4-10.4); Monocytes # 0.4 K/mm3 (0.1-1.0); Monocytes % 4.9 % (1.7-9.3); Neutrophils # 4.6 K/mm3 (1.8-7.8); Neutrophils % 55.3 % (37.0-80.0); Platelet Count 270 K/mm3 (142-424); Red Cell Distribution Width 16.9 % (11.5-17.5); White Blood Count 8.3 K/mm3 (4.8-10.8)
[2022-09-06 11:51] LABS: Alanine Aminotransferase 33 U/L (12-78); Albumin Level 3.8 g/dl (3.5-5.0); Alkaline Phosphatase 181 U/L (38-126); Aspartate Amino Transferase 22 U/L (14-36); Bilirubin,Direct 0.1 mg/dl (0.0-0.4); Estimated Glomerular Filt Rate 88 ml/min (>60); GFR (African American) 107 ML/MIN (>60); Phosphorous 3.8 mg/dl (2.5-4.5); Total Protein,Serum 6.6 g/dl (6.3-8.2)
[2022-09-06 12:02] LABS: Intact Parathyroid Hormone 47.9 pg/mL (7.5-53.5)
[2022-09-06 12:07] LABS: Bilirubin,Total 0.1 mg/dl (0.2-1.3)
[2022-09-06 12:08] LABS: 25-OH Vitamin D, Total 67.1 ng/mL (30-100)
== END ==
PROVIDERS: PCP Nurse Practitioner Family; Visit Provider Orthopaedic Surgery
DX: S32.010A Wedge compression fracture of first lumbar vertebra, initial encounter for closed fracture (principal)
CPT/HCPCS: 36415; 77080; 80076; 82306; 82310; 82565; 83970; 84100; 84155; 85025

== ENCOUNTER → 2023-06-17 16:04 | Outpatient (CLI) | payer OTHER, SELFPAY ==
--- NOTE | 2023-06-17 16:12 | MR_ITS ---
PROCEDURE INFORMATION: Exam: MR Head Without Contrast Exam date and time: 06/17/2023 5:18 PM Age: 52 years old Clinical indication: Pain; Headache; Migraine; Additional info: Recurrent headache in morning 4 out of 5 days. Ringing in ears and blurry vision. TECHNIQUE: Imaging protocol: Magnetic resonance imaging of the head without contrast. COMPARISON: BRW/O MRI-BRAIN W/O 08/25/2017 10:16 AM FINDINGS: Brain: No acute intraparenchymal hemorrhage, territorial infarct or mass lesion. Minimal scattered T2 hyperintensities in the periventricular and subcortical white matter. Cerebral ventricles: The ventricles, sulci and cisterns are normal in size and configuration. No hydrocephalus or midline structure shift Bones/joints: Unremarkable. Paranasal sinuses: Normal as visualized. No acute sinusitis. Mastoid air cells: Normal as visualized. No mastoid effusion. Orbital cavities: Unremarkable. Vasculature: Flow voids of the major vascular structures are intact. Soft tissues: Unremarkable. IMPRESSION: 1. No acute intraparenchymal hemorrhage, territorial infarct or mass lesion. 2. Minimal scattered T2 hyperintensities in the periventricular and subcortical white matter. Differential diagnosis includes, but not limited to chronic ischemic small vessel disease, migraines headache, demyelination/multiple sclerosis, and cerebral vasculitis.
== END ==
PROVIDERS: PCP Nurse Practitioner Family; Visit Provider Nurse Practitioner Family
DX: R51.9 Headache, unspecified (principal)
CPT/HCPCS: 70551

== ENCOUNTER → 2023-08-07 10:19 | Outpatient (CLI) | payer OTHER, SELFPAY ==
--- NOTE | 2023-08-07 10:23 | MR_ITS ---
FINAL REPORT CLINICAL HISTORY: DECREASED SENSATION OF HAND AND UPPER EXTREMITY.HX CERVICAL SURGERY 2013. LEFT ARM PAIN. NO RECENT INJURY OR TRAUMA COMPARISON: None FINDINGS: Multi planar MR imaging was obtained of the cervical spine. The patient has undergone prior anterior cervical fusion from C5-C7 with mild signal dropout noted from orthopedic hardware. There is abnormal decreased signal throughout the cervical discs. The vertebrae are of normal height. There is loss of the normal cervical lordosis. The cervical cord demonstrates normal signal and configuration. C2-C3: There is no evidence of significant disc bulge or protrusion. There is no significant facet hypertrophy. C3-C4: There is no evidence of significant disc bulge or protrusion. There is no significant facet hypertrophy. C4-C5: There is a moderate annular bulge present with endplate hypertrophy, mild canal stenosis and moderate bilateral neural foraminal narrowing. C5-C6: There is no evidence of significant disc bulge or protrusion. There is no significant facet hypertrophy. C6-C7: There is mild endplate hypertrophy with mild left neural foraminal narrowing. C7-T1: There is no evidence of significant disc bulge or protrusion. There is no significant facet hypertrophy. IMPRESSION: Prior C5-C7 anterior fusion as described. Degenerative change primarily at the C4-5 and C6-7 levels. Reviewed, Interpreted and Dictated by Alexandr Gomez MD Transcribed by Ana Amaya Authenticated and [facility]
== END ==
PROVIDERS: PCP Nurse Practitioner Family; Visit Provider Nurse Practitioner
DX: M54.2 Cervicalgia (principal); R20.8 Other disturbances of skin sensation
CPT/HCPCS: 72141; 76376

== ENCOUNTER → 2024-01-01 08:52 | Outpatient (POV) | payer OTHER, SELFPAY ==
[2024-01-01 09:05] VITALS: BP 132/87; PULSE 73; RESP 18; O2SAT 93; BMI 38.6
--- NOTE | 2024-01-01 10:12 | A.OFFVIS_ITS ---
HPI Data of Consult Patient: new to practice Consult date: 01/01/24 Requesting Physician: Caryl Crooks APRN Consult Narrative Reason for consult: Neck pain, bilateral shoulder pain, hand pain arm pain History of present illness: Ms. Kang is a 53 year old female who presents today as a new patient. She has a referral [facility]. Today she rates her pain a 8 out of 10. Patient states her pain is all in her neck with radiating symptoms into her bilateral upper extremities. Patient states that this has been going on for years and progressively worsened over time. Patient does describe this as a aching, throbbing sensation that is constant and does have numbness and tingling into her arms and hands. 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 Patient has had a double fusion that was done back in 2012 and she states initially this did help for a little while however symptoms progressively worsened again. She does state the pain interferes with her ability perform activities of daily living such as cooking and cleaning. Patient does state that she has been back to see Dr. Yossi Crooks who has di scussed possible additional fusion surgery however she states she would like to avoid this option if possible. Patient has tried [id number] Tylenol and ibuprofen along with heat and ice and topicals with minimal relief. Patient denies ever having any prior injection therapy. Patient does state the pain is worse with prolonged walking or standing and that nothing seems to provide relief. Patient is interested in any options we may be able to provide. Patient is currently prescribed [place] 7.5 mg 4 times a day, gabapentin 400 mg 3 times a day alprazolam 1 mg 3 times a day, Celebrex 200 mg daily and cyclobenzaprine 10 mg 3 times a day from her primary care provider. She denies any side effects from these medications. Patient does also states she has had multiple sessions of physical therapy with no additional improvement or change of her symptoms. Her Rajeev has been reviewed and is appropriate. CC: Caryl Crooks APRN [facility] Disclaimer: The information contained in this section may have been updated after the patient was seen, as this information can be updated by other users. Medical History COPD (chronic obstructive pulmonary disease) Dyspnea HLD (hyperlipidemia) Family History (Updated 01/01/24 @ 09:47 by Sary Hammond RN) Other Unknown family medical history Social History (Updated 01/01/24 @ 09:56 by Sary Hammond RN) Smoking Status: Former smoker tobacco type: cigarettes packs per day: 2 second hand exposure: Yes alcohol intake: never substance use type: denies use current occupational status: unemployed Travel in the last 8 weeks: None household members: spouse housing: house current occupational exposures/hazards: No caffeine: Yes Review of Systems Review of Systems Review of systems:: pertinent systems reviewed and negative unless documented below Review of systems (narrative): Review of Systems: General: No recent weight changes, no fever, no sleep disturbances Respiratory: No cough, no shortness of air, no recurring pulmonary infections Cardiovascular/peripheral vascular: No chest pain, no palpitations, no edema, no shortness of breath Gastrointestinal: No new onset incontinence, normal bowel movements reported Genitourinary: No new onset incontinence Musculoskeletal: Neck pain, bilateral shoulder pain, bilateral hand pain Psychiatric: [Normal mood/affect] Neurological: [Denies weakness in extremities], [denies balance issues] Meds Home Medications and Allergies Home Medications Medication Instructions Recorded Confirmed Type atogepant 10 mg tablet (Qulipta) 10 mg PO DAILY 07/09/23 01/01/24 History celecoxib 200 mg capsule 200 mg PO DAILY 07/09/23 01/01/24 History cetirizine 10 mg tablet 10 mg PO DAILY 07/09/23 01/01/24 History cyclobenzaprine 10 mg tablet 10 mg PO TID 07/09/23 01/01/24 History gabapentin 300 mg capsule 300 mg PO TID 07/09/23 01/01/24 History levothyroxine 25 mcg tablet 25 mcg PO DAILY 07/09/23 01/01/24 History rimegepant 75 mg disintegrating 75 mg PO DIRECTED PRN . 07/09/23 01/01/24 History tablet (Nurtec ODT) topiramate 200 mg tablet 200 mg PO DAILY 07/09/23 01/01/24 History venlafaxine 150 mg 150 mg PO DAILY #30 caps 07/09/23 01/01/24 Rx capsule,extended release 24 hr (Effexor XR) venlafaxine 75 mg capsule,extended 75 mg PO .COMPLEX #30 caps 07/09/23 01/01/24 Rx release 24 hr (Effexor XR) olanzapine 5 mg tablet (Zyprexa) 5 mg PO QHS #30 tabs 07/16/23 01/01/24 Rx bupropion HCl 300 mg 24 hr tablet, 300 mg PO DAILY #30 tabs 09/01/23 01/01/24 Rx extended release (Wellbutrin XL) buspirone 10 mg tablet 10 mg PO TID #90 tabs 09/01/23 01/01/24 Rx trazodone 100 mg tablet 100 mg PO QHS PRN insomnia #30 tabs 09/02/23 01/01/24 Rx New Prescriptions to Start Prescriptions: Allergies Allergy/AdvReac Type Severity Reaction Status Date / Time No Known Allergies Allergy Verified 07/28/23 15:07 Objective Narrative: Physical Exam: General: Alert and oriented x3, no acute distress, pleasant and cooperative Lungs: Respirations even and unlabored, symmetrical chest expansion Eyes: PERRL Musculoskeletal: Flexion and extension of cervical [spine] somewhat guarded secondary to pain, [antalgic gait noted]positive Spurling's test Neurological: Speech clear, no gross sensory deficit Additional findings Additional findings: FINAL REPORT CLINICAL HISTORY: DECREASED SENSATION OF HAND AND UPPER EXTREMITY.HX CERVICAL SURGERY 2013. LEFT ARM PAIN. NO RECENT INJURY OR TRAUMA COMPARISON: None FINDINGS: Multi planar MR imaging was obtained of the cervical spine. The patient has undergone prior anterior cervical fusion from C5-C7 with mild signal dropout noted from orthopedic hardware. There is abnormal decreased signal throughout the cervical discs. The vertebrae are of normal height. There is loss of the normal cervical lordosis. The cervical cord demonstrates normal signal and configuration. C2-C3: There is no evidence of significant disc bulge or protrusion. There is no significant facet hypertrophy. C3-C4: There is no evidence of significant disc bulge or protrusion. There is no significant facet hypertrophy. C4-C5: There is a moderate annular bulge present with endplate hypertrophy, mild canal stenosis and moderate bilateral neural foraminal narrowing. C5-C6: There is no evidence of significant disc bulge or protrusion. There is no significant facet hypertrophy. C6-C7: There is mild endplate hypertrophy with mild left neural foraminal narrowing. C7-T1: There is no evidence of significant disc bulge or protrusion. There is no significant facet hypertrophy. IMPRESSION: Prior C5-C7 anterior fusion as described. Degenerative change primarily at the C4-5 and C6-7 levels. Reviewed, Interpreted and Dictated by Alexandr Gomez MD Transcribed by Ana Amaya Authenticated and . [facility] Assessment and Plan *Assessment and plan (1) Degenerative disc disease, cervical: Status: Acute Category: Medical Code(s): M50.30 - Other cervical disc degeneration, unspecified cervical region (2) Cervical radiculopathy: Status: Acute Category: Medical Code(s): M54.12 - Radiculopathy, cervical region (3) Chronic pain syndrome: Status: Acute Category: Medical Code(s): G89.4 - Chronic pain syndrome (4) Status post cervical spinal fusion: Status: Acute Category: Surgical Code(s): Z98.1 - Arthrodesis status Plan Patient is experiencing significant pain in her neck with radiating symptoms into her upper extremities. Patient did have limited range of motion of her cervical spine along with a positive Spurling's test during today's exam. I have discussed with the patient that she may benefit from a cervical epidural steroid injection. Risk and benefits were discussed with patient and she would like to proceed forward with this plan of care. Patient is not on any blood thinners. I will also order the patient a compounded cream. Patient will be scheduled for a JOSE C6-C7 under fluoroscopy. Patient has been instructed to contact the clinic with any concerns before the next appointment. Dr. Nevarez has reviewed this note and agrees with this plan of care. This note was dictated using voice recognition software and make contain errors or omissions.
== END ==
LOC: SC.PAIN 08:53
PROVIDERS: Visit Provider Nurse Practitioner Family
DX: M50.121 Cervical disc disorder at C4-C5 level with radiculopathy (principal); M50.123 Cervical disc disorder at C6-C7 level with radiculopathy; G89.4 Chronic pain syndrome; Z98.1 Arthrodesis status
CPT/HCPCS: 99202; G0463

== ENCOUNTER 2024-01-20 08:13 | Day surgery (SDC) | payer OTHER, SELFPAY ==
[2024-01-20 08:30] VITALS: BP 155/77; PULSE 86; RESP 16; O2SAT 99; BMI 42.0
[2024-01-20] MEDS: IOPAMIDOL-200 (41%);10ML VIAL 10 ML IV (09:27)
[2024-01-20 09:30] VITALS: BP 132/77; PULSE 73; RESP 18; O2SAT 99
[2024-01-20 09:42] VITALS: BP 127/88; PULSE 73; RESP 18; O2SAT 92
[2024-01-20] MEDS: methylPREDNISolone ACETATE 80MG/ML VIAL 80 MG (09:42)
--- NOTE | 2024-01-20 09:45 | P.PCN_ITS ---
Procedure Date: 01/20/24 Time: 09:20 Anesthesiologist:: Brandon Arteaga CRNA Complications:: None Pre-procedure Diagnosis:: Degenerative disc cervical spine multilevels. Cervical radiculopathy. Cervical postlaminectomy syndrome. Post-procedure Diagnosis:: Same. Indications for Procedure:: Patient is a pleasant 53-year-old female comes to clinic today for cervical epidural steroid injection. Patient is status post anterior cervical discectomy and fusion to level. Her main complaint is posterior cervical neck pain with bilateral arm radicular symptoms at times. She rates her pain 6/10. Procedure Details:: Procedure:Cervical epidural steroid injection Informed consent was obtained and the risks and benefits of the procedure were explained to the patient. The patient was taken to the procedure room and noninvasive monitors placed, including noninvasive blood pressure cuff and pulse oximeter. The neck was prepped using Chloraprep as a cleansing solution. The C6- C7 interspace was viewed using fluroscopy. The skin and subcutaneous tissues were anesthetized using lidocaine 1.5% and a 25-gauge needle. After this an 18- gauge Touhy epidural needle was placed into the C6-C7 interspace under fluroscopy guidance and advanced using loss of resistance to air until the epidural space was encountered. After confirmation of needle placement in the epidural space using contrast dye, a solution containing normal saline, 2 mL and Depo-Medrol 80 mg was incrementally injected into the cervical epidural space.~ The patient tolerated the procedure well with no complications. The patient was observed in the Pain Clinic and then discharged home neurologically intact. Plan and Disposition:: Patient was discharged without incident.
[2024-01-20 09:56] VITALS: BP 127/88; PULSE 73; RESP 18; O2SAT 92
== END 2024-01-20 09:30 | disposition home or self-care (01) ==
LOC: SC.PAINP 08:14
PROVIDERS: PCP Nurse Practitioner; Visit Provider Nurse Anesthetist, Certified Registered
DX: M50.123 Cervical disc disorder at C6-C7 level with radiculopathy (principal); M96.1 Postlaminectomy syndrome, not elsewhere classified
CPT/HCPCS: 62321; J1040; Q9966

== ENCOUNTER 2024-05-05 08:41 | Outpatient (POV) | payer OTHER, SELFPAY ==
[2024-05-05 08:50] VITALS: BP 127/70; PULSE 72; RESP 16; O2SAT 95; BMI 39.4
--- NOTE | 2024-05-05 09:12 | A.OFFVIS_ITS ---
[facility] Pain Management SOAP Note Subjective:: Patient is a pleasant 53-year-old female who presents today for follow-up of cervical epidural steroid injection C6 or C7 on 01/20/2024. Patient rates her pain today a 7 out of 10. Patient denies any new trauma or injury. She states she continues to have the neck pain that does radiate down her right arm. Patient states that she really did not notice significant relief with the cervical epidural. Patient states that she has been to see a Dr. Crooks'rufino and that he was still wanting her to try the physical therapy. Patient states that she did try this and it made no additional change. Patient states that she really would like to avoid additional cervical surgery. Patient has had a doub le fusion in the past. Patient has tried and failed conservative therapy. Patient does state that the compounded cream we ordered her at her last visit broke her out in the's. Patient is prescribed [place], gabapentin, alprazolam, Celebrex and Flexeril from her PCP. Her Rajeev has been reviewed and is appropriate. Review of Systems: General: No recent weight changes, no fever, no sleep disturbances Respiratory: No cough, no shortness of air, no recurring pulmonary infections Cardiovascular/peripheral vascular: No chest pain, no palpitations, no edema, no shortness of breath Gastrointestinal: No new onset incontinence, normal bowel movements reported Genitourinary: No new onset incontinence Musculoskeletal: Neck pain, right arm pain Psychiatric: [Normal mood/affect] Neurological: [Denies weakness in extremities], [denies balance issues] Objective:: Physical Exam: General: Alert and oriented x3, no acute distress, pleasant and cooperative Lungs: Respirations even and unlabored, symmetrical chest expansion Eyes: PERRL Musculoskeletal: Flexion and extension of cervical [spine] somewhat guarded secondary to pain, [antalgic gait noted] positive Spurling's test Neurological: Speech clear, no gross sensory deficit Assessment:: Degenerative disc disease of cervical spine with cervical radiculopathy symptoms, cervical fusion history, chronic pain syndrome Plan:: Patient continues to experience significant pain throughout her neck with radiating symptoms to her right upper extremity and increased headaches. I have discussed with patient since she has tried and failed multiple conservative therapies including oral medications, heat and ice, topicals, physical therapy,injection therapy, continued at home exercising and stretching for longer than 12 weeks that she may benefit from spinal cord stimulator trial. Risk and benefits were explained to the patient and she would like to proceed forward with this plan of care. Educational handouts were given at today's visit. We will send her for psychological evaluation and if she is deemed an appropriate candidate we will proceed forward with the stim trial at a later date. patient will return to clinic in 1 month for reevaluation of symptoms and plan of care. Patient has been instructed to contact the clinic with any concerns before the next appointment. Dr. Nevarez has reviewed this note and agrees with this plan of care. This note was dictated using voice recognition software and make contain errors or omissions. [facility] Disclaimer: The information contained in this section may have been updated after the patient was seen, as this information can be updated by other users. Medical History COPD (chronic obstructive pulmonary disease) Dyspnea HLD (hyperlipidemia) Family History (Updated 01/01/24 @ 09:47 by Sary Hammond RN) Other Unknown family medical history Social History (Updated 01/01/24 @ 09:56 by Sary Hammond RN) Smoking Status: Former smoker tobacco type: cigarettes packs per day: 2 second hand exposure: Yes alcohol intake: never substance use type: denies use current occupational status: other Travel in the last 8 weeks: None household members: spouse housing: house current occupational exposures/hazards: No caffeine: Yes
== END 2024-05-05 23:59 | disposition home or self-care (01) ==
LOC: SC.PAIN 08:41
PROVIDERS: PCP Family Medicine; Visit Provider Nurse Practitioner Family
DX: M50.123 Cervical disc disorder at C6-C7 level with radiculopathy (principal); M43.22 Fusion of spine, cervical region; G89.4 Chronic pain syndrome
CPT/HCPCS: 99212; G0463

== ENCOUNTER 2024-05-26 11:10 | Outpatient (CLI) | payer OTHER, SELFPAY ==
[2024-05-26 11:20] LABS: Adenovirus F 40/41, stool Not Detected (NotDetected); Astrovirus Not Detected (NotDetected); Campylobacter Not Detected (NotDetected); Clostridium Difficile A/B, PCR Not Detected (NotDetected); Cryptosporidium Not Detected (NotDetected); Cyclospora Cayetanesis Not Detected (NotDetected); Entamoeba histolytica Not Detected (NotDetected); Enteroaggregative E coli Not Detected (NotDetected); Enteropathogenic E coli Not Detected (NotDetected); Enterotoxigenic E coli Not Detected (NotDetected); Giardia lamblia Not Detected (NotDetected); Norovirus Not Detected (NotDetected); Plesimonas Shigalloides, PCR Not Detected (NotDetected); Rotavirus A Not Detected (NotDetected); Salmonella, PCR Not Detected (NotDetected); Sapovirus Not Detected (NotDetected); Shiga-like toxin E coli Not Detected (NotDetected); Shigella Enterovasive E coli Not Detected (NotDetected); Vibrio Cholerae Not Detected (NotDetected); Vibrio, PCR Not Detected (NotDetected); Yersinia Entercolitica, PCR Not Detected (NotDetected)
== END 2024-05-26 23:59 | disposition home or self-care (01) ==
LOC: LAB.DROPOF 11:11
PROVIDERS: PCP Nurse Practitioner; Visit Provider Nurse Practitioner
DX: R19.7 Diarrhea, unspecified (principal)
CPT/HCPCS: 87507

== ENCOUNTER 2024-06-23 10:23 | Outpatient (POV) | payer OTHER, SELFPAY ==
[2024-06-23 10:37] VITALS: BP 147/80; PULSE 75; RESP 18; O2SAT 96; BMI 39.4
--- NOTE | 2024-06-23 10:47 | A.OFFVIS_ITS ---
[facility] Disclaimer: The information contained in this section may have been updated after the patient was seen, as this information can be updated by other users. Medical History COPD (chronic obstructive pulmonary disease) Dyspnea HLD (hyperlipidemia) Family History (Updated 01/01/24 @ 09:47 by Sary Hammond RN) Other Unknown family medical history Social History (Updated 01/01/24 @ 09:56 by Sary Hammond RN) Smoking Status: Former smoker tobacco type: cigarettes packs per day: 2 second hand exposure: Yes alcohol intake: never substance use type: denies use current occupational status: other Travel in the last 8 weeks: None household members: spouse housing: house current occupational exposures/hazards: No caffeine: Yes PM Subjective & Objective Subjective Subjective:: Patient is a pleasant 53-year-old female who presents today for follow-up of psychological evaluation. Today she rates her pain a 7 out of 10. She denies any new trauma or injury. She does state that she still is having significant pain throughout her neck with radiating numbness and tingling into her upper extremities. Patient does state the pain is constant and nothing seems to help. She does state the pain interferes with her ability to perform activities of daily living such as cooking and cleaning. Patient has tried and failed conservative therapy including oral medication, heat and ice, topicals, injection therapy and physical therapy with continued at home stretching exercise for longer than 12 weeks with no additional improvement. Patient was tried on compounded cream however caused a rash. Patient is prescribed [place], gabapentin, alprazolam, Celebrex and Flexeril from her PCP. Her Rajeev has been reviewed and is appropriate. Review of Systems: General: No recent weight changes, no fever, no sleep disturbances Respiratory: No cough, no shortness of air, no recurring pulmonary infections Cardiovascular/peripheral vascular: No chest pain, no palpitations, no edema, no shortness of breath Gastrointestinal: No new onset incontinence, normal bowel movements reported Genitourinary: No new onset incontinence Musculoskeletal: Neck pain, left arm numbness tingling, arm pain Psychiatric: [Normal mood/affect] Neurological: [Denies weakness in extremities], [denies balance issues] Pain at rest (0-10 scale): 7 Objective Objective:: Physical Exam: General: Alert and oriented x3, no acute distress, pleasant and cooperative Lungs: Respirations even and unlabored, symmetrical chest expansion Eyes: PERRL Musculoskeletal: Flexion and extension of cervical [spine] somewhat guarded secondary to pain, [antalgic gait noted] positive Spurling's test Neurological: Speech clear, no gross sensory deficit Has patient had previous pain injection?: No Conservative treatment options previously tried: NSAIDS Length of treatment: Longer than 12 weeks, Home exercise plan Length of treatment: Longer than 12 weeks and Prescription medications Length of treatment: Longer than 12 weeks Meds Home Medications and Allergies Home Medications ?Medication ?Instructions ?Recorded ?Confirmed ?Type atogepant 10 mg tablet (Qulipta) 10 mg PO DAILY 07/09/23 06/23/24 History celecoxib 200 mg capsule 200 mg PO DAILY 07/09/23 06/23/24 History cetirizine 10 mg tablet 10 mg PO DAILY 07/09/23 06/23/24 History cyclobenzaprine 10 mg tablet 10 mg PO TID 07/09/23 06/23/24 History gabapentin 300 mg capsule 300 mg PO TID 07/09/23 06/23/24 History levothyroxine 25 mcg tablet 25 mcg PO DAILY 07/09/23 06/23/24 History rimegepant 75 mg disintegrating 75 mg PO DIRECTED PRN . 07/09/23 06/23/24 History tablet (Nurtec ODT) topiramate 200 mg tablet 200 mg PO DAILY 07/09/23 06/23/24 History venlafaxine 150 mg 150 mg PO DAILY #30 caps 07/09/23 06/23/24 Rx capsule,extended release 24 hr (Effexor XR) venlafaxine 75 mg capsule,extended 75 mg PO .COMPLEX #30 caps 07/09/23 06/23/24 Rx release 24 hr (Effexor XR) olanzapine 5 mg tablet (Zyprexa) 5 mg PO QHS #30 tabs 07/16/23 06/23/24 Rx bupropion HCl 300 mg 24 hr tablet, 300 mg PO DAILY #30 tabs 09/01/23 06/23/24 Rx extended release (Wellbutrin XL) buspirone 10 mg tablet 10 mg PO TID #90 tabs 09/01/23 06/23/24 Rx trazodone 100 mg tablet 100 mg PO QHS PRN insomnia #30 tabs 09/02/23 06/23/24 Rx New Prescriptions to Start Prescriptions: Allergies Allergy/AdvReac Type Severity Reaction Status Date / Time No Known Allergies Allergy Verified 07/28/23 15:07 Assessment and Plan *Assessment and plan (1) Cervical radiculopathy: Status: Acute Category: Medical Code(s): M54.12 - Radiculopathy, cervical region (2) Chronic pain syndrome: Status: Acute Category: Medical Code(s): G89.4 - Chronic pain syndrome (3) Status post cervical spinal fusion: Status: Acute Category: Surgical Code(s): Z98.1 - Arthrodesis status (4) Degenerative disc disease, cervical: Status: Acute Category: Medical Code(s): M50.30 - Other cervical disc degeneration, unspecified cervical region Plan Patient continues to experience significant pain throughout her neck with numbness and tingling radiating into her upper extremities. Patient did again still have limited range of motion of her cervical spine and a positive Spurling's test. Patient's psychological evaluation was reviewed over with her and she was found to be an appropriate candidate for the spinal cord stimulator trial. I have reviewed over the risk and benefits of this procedure and she would like to proceed forward with this plan of care. Patient has tried and failed conservative therapy including continued at home stretching exercise for longer than 12 weeks. Patient has already had prior cervical surgery. Patient has also tried multiple injections with no additional relief. We will submit to insurance for the spinal cord stimulator trial under fluoroscopy. Patient has been instructed to contact the clinic with any concerns before the next appointment. Dr. Nevarez has reviewed this note and agrees with this plan of care. This note was dictated using voice recognition software and make contain errors or omissions. All injections are used with Lidocaine or Bupivacaine and Depo Medrol.
== END 2024-06-23 23:59 | disposition home or self-care (01) ==
LOC: SC.PAIN 10:24
PROVIDERS: PCP Nurse Practitioner; Visit Provider Nurse Practitioner Family
DX: M50.10 Cervical disc disorder with radiculopathy, unspecified cervical region (principal); G89.4 Chronic pain syndrome; Z98.1 Arthrodesis status; Z87.891 Personal history of nicotine dependence; Z73.89 Other problems related to life management difficulty; Z79.899 Other long term (current) drug therapy; Z96.651 Presence of right artificial knee joint
CPT/HCPCS: 99212; G0463

== ENCOUNTER 2024-07-02 10:14 | Outpatient (CLI) | payer OTHER, SELFPAY ==
--- NOTE | 2024-07-02 | MR_ITS ---
FINAL REPORT CLINICAL HISTORY: NECK PAIN COMPARISON: 08/07/2023 FINDINGS: Multiplanar MR imaging of the cervical spine was performed without contrast. Fusion of C5-C7. On the sagittal T2-weighted images, disc degeneration is seen at multiple levels. There is no evidence of fracture. The vertebral alignment is normal. The cervical spinal cord has an unremarkable appearance without evidence of mass, edema or syrinx. The cervicomedullary junction is normal. C2-3: There is no significant canal stenosis or neural foraminal narrowing. C3-4: Annular disc bulge. Uncovertebral osteophytes. Mild left neuroforaminal narrowing. C4-5: Disc osteophyte complex. Moderate right and severe left neuroforaminal narrowing, worse from prior. Mild central canal stenosis with AP diameter of the thecal sac of 9 mm. C5-6: Fusion. Mild bilateral neuroforaminal narrowing. C6-7: Fusion. Mild left neuroforaminal narrowing. C7-T1: There is no significant canal stenosis or neural foraminal narrowing. IMPRESSION: Multilevel degenerative disc disease as described. Worsening C4-5 neuroforaminal narrowing with mild central canal stenosis. Reviewed, Interpreted and Dictated by Joon Heart III, MD Transcribed by Aliyah Wolfe Authenticated and [facility]
== END 2024-07-02 23:59 | disposition home or self-care (01) ==
LOC: RAD 10:20
PROVIDERS: PCP Family Medicine; Visit Provider Family Medicine
DX: M54.2 Cervicalgia (principal)
CPT/HCPCS: 72141

== ENCOUNTER 2025-01-26 10:43 | Outpatient (POV) | payer MEDICARE, OTHER, MEDICAID, SELFPAY ==
[2025-01-26 11:00] VITALS: BP 136/87; PULSE 81; RESP 16; O2SAT 95; BMI 42.3
--- NOTE | 2025-01-26 11:23 | A.OFFVIS_ITS ---
[facility] Disclaimer: The information contained in this section may have been updated after the patient was seen, as this information can be updated by other users. Medical History COPD (chronic obstructive pulmonary disease) Dyspnea HLD (hyperlipidemia) Family History Other Unknown family medical history Social History Smoking Status: Former smoker tobacco type: cigarettes packs per day: 2 second hand exposure: Yes alcohol intake: never substance use type: denies use current occupational status: other Travel in the last 8 weeks: None household members: spouse housing: house current occupational exposures/hazards: No caffeine: Yes PM Subjective & Objective Subjective Subjective:: Patient is a pleasant 54-year-old female who presents today for follow-up. Patient was seen in our office towards the end of last year and states that her pain today is an 8 out of 10. Patient at our last visit had had a psychological evaluation and was proceeding forward with the stimulator trial however she states that she ended up proceeding forward with repeat cervical surgery done with Yossi alva at [place]. Patient states this was in August and that it did seem like it helped along the left side however the right side is very painful. Patient states she has very limited range of motion and cannot turn her head [id number]. She states the pain is waking her up in the middle of the night. She states that is interfering with her ability perform activities of daily living such as cooking and cleaning. Patient does state that she would like to get back in the process of getting the spinal cord stimulator trial. Patient does also state that due to the fact that the pain is constant she is interested in any additional help we may be able to provide. Patient did previously have a cervical epidural of the C6-C7 level however did not get significant relief. Patient has also had updated cervical imaging. Her Rajeev has been reviewed. Patient is prescribed multiple medications including Maxbass, gabapentin, alprazolam, Celebrex and Flexeril from her PCP. Review of Systems: General: No recent weight changes, no fever, no sleep disturbances Respiratory: No cough, no shortness of air, no recurring pulmonary infections Cardiovascular/peripheral vascular: No chest pain, no palpitations, no edema, no shortness of breath Gastrointestinal: No new onset incontinence, normal bowel movements reported Genitourinary: No new onset incontinence Musculoskeletal: Neck pain Psychiatric: [Normal mood/affect] Neurological: [Denies weakness in extremities], [denies balance issues] Pain at rest (0-10 scale): 8 Objective Objective:: Physical Exam: General: Alert and oriented x3, no acute distress, pleasant and cooperative Lungs: Respirations even and unlabored, symmetrical chest expansion Eyes: PERRL Musculoskeletal: Flexion and extension of cervical [spine] somewhat guarded secondary to pain, [antalgic gait noted] positive Kemps test Neurological: Speech clear, no gross sensory deficit FINDINGS: Multiplanar MR imaging of the cervical spine was performed without contrast. Fusion of C5-C7. On the sagittal T2-weighted images, disc degeneration is seen at multiple levels. There is no evidence of fracture. The vertebral alignment is normal. The cervical spinal cord has an unremarkable appearance without evidence of mass, edema or syrinx. The cervicomedullary junction is normal. C2-3: There is no significant canal stenosis or neural foraminal narrowing. C3-4: Annular disc bulge. Uncovertebral osteophytes. Mild left neuroforaminal narrowing. C4-5: Disc osteophyte complex. Moderate right and severe left neuroforaminal narrowing, worse from prior. Mild central canal stenosis with AP diameter of the thecal sac of 9 mm. C5-6: Fusion. Mild bilateral neuroforaminal narrowing. C6-7: Fusion. Mild left neuroforaminal narrowing. C7-T1: There is no significant canal stenosis or neural foraminal narrowing. IMPRESSION: Multilevel degenerative disc disease as described. Worsening C4-5 neuroforaminal narrowing with mild central canal stenosis. Reviewed, Interpreted and Dictated by Joon Heart III, MD Transcribed by Aliyah Wolfe Authenticated and [facility] Has patient had previous pain injection?: No Conservative treatment options previously tried: Home exercise plan Length of treatment: Longer than 12 weeks Meds Home Medications and Allergies Home Medications ?Medication ?Instructions ?Recorded ?Confirmed ?Type atogepant 10 mg tablet (Qulipta) 10 mg PO DAILY 07/09/23 01/26/25 History celecoxib 200 mg capsule 200 mg PO DAILY 07/09/23 01/26/25 History cetirizine 10 mg tablet 10 mg PO DAILY 07/09/23 01/26/25 History cyclobenzaprine 10 mg tablet 10 mg PO TID 07/09/23 01/26/25 History gabapentin 300 mg capsule 300 mg PO TID 07/09/23 01/26/25 History levothyroxine 25 mcg tablet 25 mcg PO DAILY 07/09/23 01/26/25 History rimegepant 75 mg disintegrating 75 mg PO DIRECTED PRN . 07/09/23 01/26/25 History tablet (Nurtec ODT) topiramate 200 mg tablet 200 mg PO DAILY 07/09/23 01/26/25 History venlafaxine 150 mg 150 mg PO DAILY #30 caps 07/09/23 01/26/25 Rx capsule,extended release 24 hr (Effexor XR) venlafaxine 75 mg capsule,extended 75 mg PO .COMPLEX #30 caps 07/09/23 01/26/25 Rx release 24 hr (Effexor XR) olanzapine 5 mg tablet (Zyprexa) 5 mg PO QHS #30 tabs 07/16/23 01/26/25 Rx bupropion HCl 300 mg 24 hr tablet, 300 mg PO DAILY #30 tabs 09/01/23 01/26/25 Rx extended release (Wellbutrin XL) buspirone 10 mg tablet 10 mg PO TID #90 tabs 09/01/23 01/26/25 Rx trazodone 100 mg tablet 100 mg PO QHS PRN insomnia #30 tabs 09/02/23 01/26/25 Rx New Prescriptions to Start Prescriptions: Allergies Allergy/AdvReac Type Severity Reaction Status Date / Time No Known Allergies Allergy Verified 07/28/23 15:07 Assessment and Plan *Assessment and plan (1) Cervical spondylosis: Status: Acute Category: Medical Code(s): M47.812 - Spondylosis without myelopathy or radiculopathy, cervical region (2) Chronic pain syndrome: Status: Acute Category: Medical Code(s): G89.4 - Chronic pain syndrome (3) Status post cervical spinal fusion: Status: Acute Category: Surgical Code(s): Z98.1 - Arthrodesis status (4) Degenerative disc disease, cervical: Status: Acute Category: Medical Code(s): M50.30 - Other cervical disc degeneration, unspecified cervical region Plan Patient is experiencing worsening pain in her neck with very limited range of motion. Patient did have limited range of motion of her cervical spine with positive Kemps test. I did discuss with patient that I do believe that she may get beneficial relief with cervical medial branch block. Risk and benefits were discussed with the patient and she would like to proceed forward with this plan of care. Patient was also counseled due to the fact it has been several months since we have seen her we would have to start the process all over again regarding sending her for psychological evaluation to proceed forward with the stimulator trial. Patient acknowledges understanding and would like to proceed forward with this plan of care. Patient has tried and failed conservative therapy including oral medication, heat and ice, topicals, physical therapy, at home stretching exercise for longer than 12 weeks as well as failed neck surgery. Patient will be scheduled for her first cervical medial branch block bilaterally C4-C5 and C5-C6 under fluoroscopy. If she does have significant more relief we will plan on repeating the diagnostic block with the plan to proceed forward with a cervical RFA at a later date. Patient will also be sent for a stimulator trial in future if she is again deemed an appropriate candidate for the trial as she was in the past. Patient has been instructed to contact the clinic with any concerns before the next appointment. Dr. Nevarez has reviewed this note and agrees with this plan of care. This note was dictated using voice recognition software and make contain errors or omissions. All injections are used with Lidocaine, Bupivacaine and Depo Medrol. Occasionally urine drug screen is needed to verify patient's compliance with our office pain contract. This is ordered based off specific treatments related to chronic pain with the potential to abuse certain medications.
== END 2025-01-26 23:59 | disposition home or self-care (01) ==
LOC: SC.PAIN 10:50
PROVIDERS: PCP Nurse Practitioner; Visit Provider Nurse Practitioner Family
DX: M47.812 Spondylosis without myelopathy or radiculopathy, cervical region (principal); G89.4 Chronic pain syndrome; Z98.1 Arthrodesis status; M50.30 Other cervical disc degeneration, unspecified cervical region; Z87.891 Personal history of nicotine dependence; Z73.89 Other problems related to life management difficulty
CPT/HCPCS: 99212; G0463

== ENCOUNTER 2025-02-22 09:15 | Day surgery (SDC) | payer MEDICARE, OTHER, MEDICAID, SELFPAY ==
[2025-02-22] MEDS: IOPAMIDOL-200 (41%);10ML VIAL 10 ML IV (09:20)
[2025-02-22 09:21] VITALS: BP 110/65; PULSE 78; RESP 18; TEMP 36.4; O2SAT 90; BMI 39.9
[2025-02-22] MEDS: BUPIVACAINE 0.25% 10ML INJ 25 MG IJ (09:37)
[2025-02-22] MEDS: methylPREDNISolone ACETATE 80MG/ML VIAL 80 MG (09:37)
[2025-02-22 09:38] VITALS: BP 128/76; PULSE 71; RESP 18; O2SAT 93
[2025-02-22] MEDS: LIDOCAINE 1% 5ML PF VIAL 5 ML (09:38)
[2025-02-22 09:39] VITALS: BP 128/76; PULSE 72; RESP 18; O2SAT 93
--- NOTE | 2025-02-22 09:45 | P.PCN_ITS ---
Procedure Date: 02/22/25 Time: 09:20 Anesthesiologist:: Brandon Arteaga CRNA Complications:: None Pre-procedure Diagnosis:: Cervical degenerative disc multilevels. Cervical radiculopathy. Cervical spondylosis. Multilevel cervical facet arthropathy. Cervical postlaminectomy syndrome. Post-procedure Diagnosis:: Same Indications for Procedure:: Patient very pleasant 54-year-old female comes our clinic today for ROUND ONE bilateral C4-5, C5-6 medial branch blocks/facet injections. Patient describes cervical neck pain as constant, dull, aching. Patient reports having difficulty with cervical flexion, extension, left and right rotation. She rates her pain 7/10. She denies radicular symptoms into the arms. However, she reports bilateral shoulder pain. Procedure Details:: Informed consent was obtained and the risk and benefits of the procedure was explained to the patient. Patient was taken to the procedure room where noninvasive monitors were placed, including noninvasive blood pressure cuff as well as pulse oximeter. The area over the posterior cervical spine was cleansed using chlorhexidine as a cleansing solution. I anesthetized the skin and subcutaneous tissues with 1% Lidocaine. I placed 25 -gauge spinal needles into the facet joint/ medial branches of C4-5, C5-6 bilaterally. Needle placement was confirmed with fluoroscopy. After confirmation of needle placement, each site was injected with 1 mL of 1% lidocaine and 0.25 % Marcaine and 10 mg of Depo- Medrol. A total of 20 mg of depo medrol was used for bilateral medial Plan and Disposition:: Patient was discharged out incident.
[2025-02-22 09:47] VITALS: BP 125/67; PULSE 74; RESP 17; O2SAT 96
== END 2025-02-22 09:47 | disposition home or self-care (01) ==
PROVIDERS: PCP Nurse Practitioner; Visit Provider Nurse Anesthetist, Certified Registered
DX: M47.812 Spondylosis without myelopathy or radiculopathy, cervical region (principal); M50.30 Other cervical disc degeneration, unspecified cervical region; M96.1 Postlaminectomy syndrome, not elsewhere classified
CPT/HCPCS: 64490; 64491; J1010; Q9966

== ENCOUNTER 2025-03-08 10:20 | Outpatient (POV) | payer MEDICARE, MEDICAID, SELFPAY ==
--- OUTSIDE RECORDS SUMMARY | 2025-03-08 10:23 | XMS_ITS ---
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 Name Role Phone Valeriy ROYAL, Yossi Blanton Unavailable [phone] JACKLYN ADORNO MD Primary Care Provider [phone] Problems Includes: Active, inactive, and resolved Problems All Visits Onset Date Resolved Date Provider Condition S tatus Upper Back Pain 10/02/2023 Yossi Crooks MD Act brandt Last Documented On 3 8:32AM ; [facility] Lower Back Pain 08/15/2022 Yossi Crooks MD Act brandt Last Documented On 2 8:50AM ; [facility] Neck Pain 02/22/2016 Yossi Crooks MD Active Last Documented On 6 3:46PM ; [facility] Plan of Treatment Pending Tests Order Diagnosis Results Due Ordering P rovider Radiology Dexascan 08/28/22 Doug Lacy PA-C Last Documented On 2 2:51PM ; [facility] Instructions to patient Lose weight Last Documented On 4 10:53AM ; [facility] Lose weight Last Documented On 4 11:12AM ; [facility] Lose weight Last Documented On 3 8:35AM ; [facility] Instructions for patient see pcp for weight management Last Documented On 2 2:28PM ; [facility] Intervention and counseling on cessation of tobacco use Last Documented On 2 2:28PM ; [facility] Lose weight Last Documented On 2 2:28PM ; [facility] Lose weight Last Documented On 2 8:50AM ; [facility] Instructions for patient see pcp for weight management Last Documented On 6 3:51PM ; [facility] Intervention and counseling on cessation of tobacco use Last Documented On 6 3:51PM ; [facility] Lose weight Last Documented On 6 3:51PM ; [facility] Education and Decision Aids were provided during visit for: Health seminar on smoking ce ssation Last Documented On 2 2:28PM ; [facility] Health seminar on smoking ce ssation Last Documented On 6 3:51PM ; [facility] Assessments Includes: Assessments for all patient encounters Findings Encounter Date Overweight Post Op with Doug Lacy PA-C 09/29/2024 Last Documented On 4 11:21AM ; [facility] Overweight Follow Up with Yossi Crooks MD 07/08/2024 Last Documented On 4 12:26PM ; [facility] Overweight NEW PROBLEM/EST PT with Yossi Crooks MD 10/02/2023 Last Documented On 3 3:05PM ; [facility] Instructions Includes: Instructions for all patient encounters Instructions to patient Lose weight Last Documented On 4 10:53AM ; [facility] Lose weight Last Documented On 4 11:12AM ; [facility] Lose weight Last Documented On 3 8:35AM ; [facility] Instructions for patient see pcp for weight management Last Documented On 2 2:28PM ; [facility] Intervention and counseling on cessation of tobacco use Last Documented On 2 2:28PM ; [facility] Lose weight Last Documented On 2 2:28PM ; [facility] Lose weight Last Documented On 2 8:50AM ; [facility] Instructions for patient see pcp for weight management Last Documented On 6 3:51PM ; [facility] Intervention and counseling on cessation of tobacco use Last Documented On 6 3:51PM ; [facility] Lose weight Last Documented On 6 3:51PM ; [facility] Education and Decision Aids were provided during visit for: Health seminar on smoking ce ssation Last Documented On 2 2:28PM ; [facility] Health seminar on smoking ce ssation Last Documented On 6 3:51PM ; [facility] Medical Equipment - Implanted Devices Includes: Current and historical Devices No Medical Equipment Recorded Medications Includes: Current and historical Medications Current Medications (continue as prescribed) Qulipta 10 MG Oral Tablet 06/25/2024 Provider: Eliseo Neumann APRN Diagnosis: Last Documented On 4 10:59AM By Lizzie Siegel ; [facility] Fenofibrate Micronized 134 MG Oral Capsule 06/24/2024 Provider: Olga Neumann APRN Diagnosis: Last Documented On 4 10:59AM By Lizzie Siegel ; [facility] traMADol HCl 50 MG Oral Tablet 06/24/2024 Provider: Olga Neumann APRN Diagnosis: Last Documented On 4 10:59AM By Lizzie Siegel ; [facility] HYDROcodone-Acetaminophen 7.5-325 MG Oral Tablet 10/02 Provider: Diagnosis: Last Documented On 3 12:58PM By Ana M Kessler ; [facility] ALPRAZolam 1 MG Oral Tablet 09/15/2023 Provider: Olga Neumann APRN Diagnosis: Last Documented On 3 12:54PM By Ana M Kessler ; [facility] Gabapentin 400 MG Oral Capsule 09/15/2023 Provider: Olga Neumann APRN Diagnosis: Last Documented On 3 12:54PM By Ana M Kessler ; [facility] Celecoxib 200 MG Oral Capsule 09/12/2023 Provider: Olga Neumann APRN Diagnosis: Last Documented On 3 12:54PM By Ana M Kessler ; [facility] Cetirizine HCl 10 MG Oral Tablet 09/12/2023 Provider : Olga Neumann APRN Diagnosis: Last Documented On 3 12:54PM By Ana M Kessler ; [facility] Past Medications on file oxyCODONE HCl 5 MG Oral Tablet 09/15/2024 - 09/30/2024 Provider: Yossi Crooks MD Diagnosis: 1 tab every 6 hrs prn pain 1 tab every 6 hrs prn breakthrough pain Last Documented On 4 9:07AM By Yossi Crooks ; [facility] Topiramate 200 MG Oral Tablet 09/12/2023 - 09/29/2024 Provider: Olga Neumann APRN Diagnosis: Last Documented On 4 10:40AM By Nikita Em ; [facility] Cyclobenzaprine HCl 10 MG Or al Tablet 09/12/2023 - 09/29/2024 Provider: Olga Neumann APRN Diagnosis: Last Documented On 4 10:40AM By Nikita Em ; [facility] buPROPion HCl ER (XL) 300 MG Oral Tablet Extended Release 24 Hour 09/05/2023 - 09/29/2024 Provider: Diagnosis: Last Documented On 4 10:40AM By Nikita Em ; [facility] traZODone HCl 100 MG Oral Tablet 09/02/2023 - 09/29/20 24 Provider: Diagnosis: Last Documented On 4 10:40AM By Nikita Em ; [facility] busPIRone HCl 10 MG Oral Tablet 09/01/2023 - 4 Provider: Diagnosis: Last Documented On 4 10:39AM By Nikita Em ; [facility] Venlafaxine HCl ER 75 MG Ora l Capsule Extended Release 24 Hour 09/01/2023 - 09/29/2024 Provider: Olga Neumann APRN Diagnosis: Last Documented On 4 10:39AM By Nikita Em ; [facility] Venlafaxine HCl ER 150 MG Or al Capsule Extended Release 24 Hour 09/01/2023 - 09/29/2024 Provider: Olga Neumann APRN Diagnosis: Last Documented On 4 10:39AM By Nikita Em ; [facility] HYDROcodone-Acetaminophen 5- 325 MG Oral Tablet 08/22/2022 - 09/06/2022 Provider: Yossi Crooks MD Diagnosis: 1 po q 6 to 8 hrs prn pain Last Documented On 2 1:39PM By Yossi Crooks ; [facility] HYDROcodone-Acetaminophen 5- 325 MG Oral Tablet 08/15/2022 - 09/14/2022 Provider: Yossi Crooks MD Diagnosis: Take 1 tablet every 8 hrs prn pain Last Documented On 2 10:12AM By Yossi Crooks ; [facility] Xanax 0.25 MG Oral Tablet 08/15/2022 - 10/02/2023 Prov ider: Diagnosis: Last Documented On 3 12:53PM By Ana M Kessler ; [facility] Gabapentin 100 MG Oral Capsule 08/15/2022 - 10/02/2023 Provider: Diagnosis: Last Documented On 3 12:54PM By Ana M Kessler ; [facility] Effexor XR 37.5 MG Oral Caps ule Extended Release 24 Hour 08/15/2022 - 10/02/2023 Provider: Diagnosis: Last Documented On 3 12:54PM By Ana M Kessler ; [facility] Vraylar 1.5 MG Oral Capsule 08/15/2022 - 10/02/2023 Pr ovider: Diagnosis: Last Documented On 3 12:53PM By Ana M Kessler ; [facility] PROzac 10 MG Oral Capsule 08/15/2022 - 10/02/2023 Prov ider: Diagnosis: Last Documented On 3 12:53PM By Ana M Kessler ; [facility] Cyclobenzaprine HCl 5 MG Oral Tablet 08/15/2022 - 09/17 Provider: Diagnosis: Last Documented On 3 12:54PM By Ana M Kessler ; [facility] HYDROcodone Bitartrate ER 10 MG Oral Capsule Extended Release 12 Hour 08/15/2022 - 10/02/2023 Provider: Diagnosis: Last Documented On 3 12:54PM By Ana M Kessler ; [facility] Methocarbamol 500 MG Oral Tablet 08/15/2022 - 10/02/20 Provider: Diagnosis: Last Documented On 3 12:53PM By Ana M Kessler ; [facility] Ibuprofen 200 MG Capsule 02/22/2016 - 08/15/2022 P nander: Diagnosis: Last Documented On 2 9:13AM By Margarita Randle ; [facility] Diclofenac Potassium 50 MG Tablet 02/22/2016 - 022 Provider: Diagnosis: Last Documented On 2 9:13AM By Margarita Randle ; [facility] Effexor XR 150 MG Capsule Ex tended Release 24 Hour 02/22/2016 - 08/15/2022 Provider: Diagnosis: Last Documented On 2 9:13AM By Margarita Randle ; [facility] Imitrex 25 MG Tablet 02/22/2016 - 08/15/2022 Provider: Diagnosis: Last Documented On 2 9:13AM By Margarita Randle ; [facility] LORazepam 1 MG Tablet 02/22/2016 - 08/15/2022 Provider : Diagnosis: Last Documented On 2 9:13AM By Margarita Randle ; [facility] Methocarbamol 500 MG Tablet 02/22/2016 - 08/15/2022 Pr ovider: Diagnosis: Last Documented On 2 9:13AM By Margarita Randle ; [facility] Gabapentin 100 MG Capsule 02/22/2016 - 08/15/2022 Prov ider: Diagnosis: Last Documented On 2 9:13AM By Margarita Randle ; [facility] TraMADol HCl 50 MG Tablet 02/22/2016 - 08/15/2022 Prov ider: Diagnosis: Last Documented On 2 9:13AM By Margarita Randle ; [facility] Medications Administered Includes: Administered Medications in patient's chart No Administered Medications Recorded Vital Signs Includes: Vital Signs from 03/08/2024 through 03/08/2025 Vital Name 09/29/2024 10:54A 07/08/2024 11: 12A Height (in) 64 64 Weight (lb) 230 234.2 Body Mass Index 39.5 40.2 Body Surface Area 2.1 2.1 Pain Level 7 Note: [facility] Last Documented: On 09/29/2024 10:54A M ; [facility] On 07/08/2024 11:12AM ; [facility] Results Includes: Results from 03/08/2024 through 03/08/2025 No Results Recorded For Specified Dates History of Present Illness History of Present Illness not supported for this document type No History of Present Illness Recorded Social History Description Last Updated Tobacco non-user 10/02/2023 Last Documented On 3 3:05PM ; [facility] No recent change in diet 10/02/2023 Last Documented On 3 3:05PM ; [facility] Not a current smoker. 10/02/2023 Last Documented On 3 3:05PM ; [facility] No caffeine use 10/02/2023 Last Documented On 3 3:05PM ; [facility] Not exercising regularly 10/02/2023 Last Documented On 3 3:05PM ; [facility] Current smoker 02/22/2016 Last Documented On 6 10:40AM ; [facility] No recent change in diet 02/22/2016 Last Documented On 6 10:40AM ; [facility] Not using alcohol 02/22/2016 Last Documented On 6 10:40AM ; [facility] Not using drugs 02/22/2016 Last Documented On 6 10:40AM ; [facility] Tobacco use 02/22/2016 Last Documented On 6 10:40AM ; [facility] Smoking status : Current everyday smoker 02/22/2016 Last Documented On 6 10:40AM ; [facility] Procedures and Surgical History Includes: Procedures from 03/08/2024 through 03/08/2025 Procedures Code Diagnosis Performing Provider Service Location Service Date X-RAY EXAM OF NECK SPINE 2 VIEWS 70093 Fusion of spine, cervical region Doug Lacy PA-C [facility] 09/29/2024 Last Documented On 4 1:52PM ; [facility] SPINAL BONE ALLOGRAFT (Patient Partner surgeon) Spinal stenosis, cervical [facility] Last Documented On 4 10:09AM ; [facility] INSERT SPINE FIXATION DEVICE (Patient Partner surgeon) 17644 [facility]inal [facility], [facility] Last Documented On 4 10:09AM ; [facility] Arthodesis,anterior interbody (Patient Partner surgeon) [id number] Spinal stenosis, [facility] Last Documented On 4 10:08AM ; [facility] SPINAL BONE ALLOGRAFT Spinal stenosis, cervical region Yossi Crooks MD [facility] 09/15/2024 Last Documented On 4 1:53PM ; [facility] INSERT SPINE FIXATION DEVICE 26052 Spinal stenosis, cervical region Yossi Crooks MD [facility] 09/15/2024 Last Documented On 4 1:53PM ; [facility] Arthodesis,anterior interbody [id number] Spinal stenosis, cervical region Yossi Crooks MD [facility] 09/15/2024 Last Documented On 4 1:53PM ; [facility] PT Eval - High Complexity (GP) 39055 Spinal stenosis, cervical region Vj Rankin PT [facility] 08/04/2024 Last Documented On 4 10:14AM ; [facility] Surgical History Last Updated History of total knee arthroplasty parti al 10/02/2023 Last Documented On 3 3:05PM ; [facility] History of appendectomy 10/02/2023 Last Documented On 3 3:05PM ; [facility] History of Past Surgical History: 2022 Last Documented On 3 3:05PM ; [facility] History of back surgery 02/22/2016 Last Documented On 6 10:40AM ; [facility] History of hysterectomy 02/22/2016 Last Documented On 6 10:40AM ; [facility] Medical History Includes: Medical History in patient's chart Description Last Updated No recent immunization for flu 2 Last Documented On 2 11:28AM ; [facility] No recent immunization for pneumococcal pneumonia 10/28/2022 Last Documented On 2 11:28AM ; [facility] Gallbladder disease 02/22/2016 Last Documented On 6 10:40AM ; [facility] History of depression 02/22/2016 Last Documented On 6 10:40AM ; [facility] Family History Includes: Family History in patient's chart Description Last Updated Paternal history of family history of ca ncer father 02/22/2016 Last Documented On 6 10:40AM ; [facility] Review of Systems Review of Systems not supported for this document type No Review of Systems Recorded Mental Status Description Anxiety Functional Status No Functional Status Recorded Physical Exam Physical Exam not supported for this document type No Physical Exam Recorded Allergies Includes: Active, inactive, and resolved Allergies No Known Allergies Encounters Includes: Encounters from 03/08/2024 through 03/08/2025 Encounter Provider Location Date Check-In Time Check-Out Time Diagnosis Post Op Doug Lacy PA-C [facility] 09/29/20 24 10:37AM 10:59AM Overweight [Patient Encounter] Yossi Crooks MD 09/15/20 24 07/08/2024 8:48AM 07/08/2024 11:59PM [facility] Yossi Crooks MD Surgery 10/30/09/21/2024 3:43PM 07/08/2024 11:59PM [Patient Encounter] Yossi Crooks MD 07/28/2007/08/2024 5:04PM 07/08/2024 11:59PM Follow Up Yossi Crooks MD [facility] 07/08/20 10:31AM 11:54AM Overweight Insurance Includes: Active Insurance Policies Plan Name Member ID Group # Subscriber Relationship Effect brandt Dates 1 - [place] [id number] Angelina Kang Self Clinical Notes Includes: Signed Clinical Notes starting from 10/31/2022 * Progress note Date Encounter Last Documented by 09/29/2024 Post Op Last documented on 09/29/2024; 11:21 AM, Doug Lacy PA-C; [facility] Active Problems & Conditions - Lower Back Pain - Neck Pain - Upper Back Pain Chief Complaint The Chief Complaint is: Neck/upper back pain. Referred Here Referred by Self. History of Present Illness Angelina Kang is a 54 year old female. - Symptoms Lying down makes symptoms better. Sitting up, driving, riding and walking makes symptoms wrose. - Allergy list reviewed - Problem list reviewed - Medication list reviewed - Previous history of new onset pain 07/18/2023 Injury is not work related or an automotive accident - Pain is constant (100% of the time) - Pain is throbbing - Pain is dull, aching - Patient pain level from 1-10: 7 - Yes, previous treatment. Priscilla Neumann Medications used for this condition: Patient is here today for follow-up of her C4-C5 ACDF 09/15/2024 doing fairly well the arm pain that she was having is is significantly better she is off pain medicine in his point in time Current Medication - ALPRAZolam 1 MG Oral Tablet 30 days, 0 refills - Celecoxib 200 MG Oral Capsule 30 days, 0 refills - Cetirizine HCl 10 MG Oral Tablet 30 days, 0 refills - Fenofibrate Micronized 134 MG Oral Capsule 30 days, 0 refills - Gabapentin 400 MG Oral Capsule 30 days, 0 refills - HYDROcodone-Acetaminophen 7.5-325 MG Oral Tablet take as directed 0 days, 0 refills - oxyCODONE HCl 5 MG Oral Tablet 1 tab every 6 hrs prn pain 1 tab every 6 hrs prn breakthrough pain, 15 days, 0 refills - Qulipta 10 MG Oral Tablet 30 days, 0 refills - traMADol HCl 50 MG Oral Tablet 30 days, 0 refills Past Medical/Surgical History Reported: Medical: Gallbladder disease. Immunization History: No recent immunization for flu and not for pneumococcal pneumonia. Diagnoses: Depression Surgical: - Appendectomy - Past Surgical History: - Hysterectomy - Back surgery - Total knee arthroplasty partial Social History Not a current smoker. Current diet: No recent change in diet. No recent change in diet. Caffeine use: No caffeine use. Tobacco use: Current smoker, tobacco non-user, and smoking status: Current everyday smoker. Alcohol: Not using alcohol. Drug Use: Not using drugs. Habits: Not exercising regularly. Allergies - No Known Allergies Family History Paternal: Cancer father Review Of Systems Systemic: Feeling tired. No recent weight loss. Recent weight gain. Head: Headache. No sinus pain. Eyes: No vision problems and no Cataracts. Glasses/Contacts. No Glaucoma. Otolaryngeal: No hearing loss and no tinnitus. Cardiovascular: No chest pain or discomfort, no palpitations, no Hypertension, and no High Cholesterol. Pulmonary: No daytime asthma symptoms and no chronic cough. No wheezing. Gastrointestinal: No heartburn and no abdominal pain. No Indigestion, no Peptic Ulcer, no GI Stomach Bleed, no Ulcers, and no Acid Reflux. Endocrine: No hot flashes, no muscle weakness, no Diabetes, no Hypothyroid, and no Hyperthyroid. Hematologic: No easy bleeding, no tendency for easy bruising, and no Anemia. Musculoskeletal: Arthritis and lower back pain. No soft tissue swelling. Pain localized to one or more joints. Neurological: No dizziness and no convulsions. Numbness. Psychological: Anxiety, emotional lability, depression, insomnia, and crying for no reason. Skin: No dry skin. No Ulcers, no Scars, and no rash. Allergic and Immunologic: Complaint of seasonal allergic reaction. Physical Findings - Vitals taken 09/29/2024 10:54 am cd Height 64 in Weight 230 lbs Body Mass Index 39.5 kg/m2 Body Surface Area 2.1 m2 The incision looks clean dry intact anteriorly we took the Steri-Strips off today Walking with a normal gait she has adequate motion looking right and left Tests Two views cervical spine show the hardware in good position C4-C5 she has previous fusion below that 09/29/2024 Assessment - Overweight C4-C5 ACDF 09/15/2024 Previous Tests Imaging: MRI Scan: An MRI was performed 07/02/2024 [facility]. Available previous imaging studies were reviewed Available previous history reviewed Counseling/Education - Lose weight Plan Patient was seen by myself Doug Lacy PA-C. Patient will follow up 4 weeks repeat cervical spine x-rays with Dr. Crooks. Notes This dictation was done with voice recognition software and may contain errors and omissions. Practice Management Use of tobacco assessment performed Review of medications documented. Care Team - JACKLYN ADORNO MD Health Reminders - Assess BMI satisfied 09/29/2024. - Assess Tobacco Use satisfied 02/22/2016. - Follow Up Plan BMI Management satisfied 09/29/2024. * Progress note Date Encounter Last Documented by 07/08/2024 Follow Up Last documented on 07/23/2024; 12:26 PM, Yossi Crooks MD; [facility] Active Problems & Conditions - Lower Back Pain - Neck Pain - Upper Back Pain Chief Complaint The Chief Complaint is: Neck/upper back pain. Referred Here Referred by Self. History of Present Illness Angelina Kang is a 53 year old female. - Symptoms Lying down makes symptoms better. Sitting up, driving, riding and walking makes symptoms wrose. - Allergy list reviewed - Problem list reviewed - Medication list reviewed - Previous history of new onset pain 07/18/2023 Injury is not work related or an automotive accident - Pain is constant (100% of the time) - Pain is throbbing - Pain is dull, aching - Patient pain level from 1-10: 7 - Yes, previous treatment. Priscilla Neumann Medications used for this condition: Current Medication - ALPRAZolam 1 MG Oral Tablet 30 days, 0 refills - buPROPion HCl ER (XL) 300 MG Oral Tablet Extended Release 24 Hour 30 days, 0 refills - busPIRone HCl 10 MG Oral Tablet 30 days, 0 refills - Celecoxib 200 MG Oral Capsule 30 days, 0 refills - Cetirizine HCl 10 MG Oral Tablet 30 days, 0 refills - Cyclobenzaprine HCl 10 MG Oral Tablet 30 days, 0 refills - Fenofibrate Micronized 134 MG Oral Capsule 30 days, 0 refills - Gabapentin 400 MG Oral Capsule 30 days, 0 refills - HYDROcodone-Acetaminophen 7.5-325 MG Oral Tablet take as directed 0 days, 0 refills - Qulipta 10 MG Oral Tablet 30 days, 0 refills - Topiramate 200 MG Oral Tablet 30 days, 0 refills - traMADol HCl 50 MG Oral Tablet 30 days, 0 refills - traZODone HCl 100 MG Oral Tablet 30 days, 0 refills - Venlafaxine HCl ER 150 MG Oral Capsule Extended Release 24 Hour 30 days, 0 refills - Venlafaxine HCl ER 75 MG Oral Capsule Extended Release 24 Hour 30 days, 0 refills Past Medical/Surgical History Reported: Medical: Gallbladder disease. Immunization History: No recent immunization for flu and not for pneumococcal pneumonia. Diagnoses: Depression Surgical: - Appendectomy - Past Surgical History: - Hysterectomy - Back surgery - Total knee arthroplasty partial Social History Not a current smoker. Current diet: No recent change in diet. Caffeine use: No caffeine use. Tobacco use: Tobacco use. Alcohol: Not using alcohol. Drug Use: Not using drugs. Habits: Not exercising regularly. Allergies - No Known Allergies Family History Paternal: Cancer father Review Of Systems Systemic: Feeling tired. No recent weight loss. Recent weight gain. Head: Headache. No sinus pain. Eyes: No vision problems and no Cataracts. Glasses/Contacts. No Glaucoma. Otolaryngeal: No hearing loss and no tinnitus. Cardiovascular: No chest pain or discomfort, no palpitations, no Hypertension, and no High Cholesterol. Pulmonary: No daytime asthma symptoms and no chronic cough. No wheezing. Gastrointestinal: No heartburn and no abdominal pain. No Indigestion, no Peptic Ulcer, no GI Stomach Bleed, no Ulcers, and no Acid Reflux. Endocrine: No hot flashes, no muscle weakness, no Diabetes, no Hypothyroid, and no Hyperthyroid. Hematologic: No easy bleeding, no tendency for easy bruising, and no Anemia. Musculoskeletal: Arthritis and lower back pain. No soft tissue swelling. Pain localized to one or more joints. Neurological: No dizziness and no convulsions. Numbness. Psychological: Anxiety, emotional lability, depression, insomnia, and crying for no reason. Skin: No dry skin. No Ulcers, no Scars, and no rash. Allergic and Immunologic: Complaint of seasonal allergic reaction. Physical Findings - Vitals taken 07/08/2024 11:12 am lc Height 64 in Weight 234 lbs 3.2 oz Body Mass Index 40.2 kg/m2 Body Surface Area 2.1 m2 Pain Level 7 Assessment - Overweight Previous Tests Imaging: MRI Scan: An MRI was performed 07/02/2024 [facility]. Available previous imaging studies were reviewed Available previous history reviewed Counseling/Education - Lose weight Notes This dictation was done with voice recognition software and may contain errors and omissions. For follow-up of her cervical MRI. She has severe neck left shoulder pain radiating to the upper arm. She has mild weakness in her deltoid. She has worked with pain management she has done physical therapy and she is limited on the medication she can take. Her MRI shows some significant edema in stenosis at C4-5 above her previous fusion. We discussed the risks benefits alternatives of a C4-5 anterior cervical diskectomy and fusion and she wishes to proceed atient is here Practice Management Use of tobacco assessment performed Review of medications documented. Care Team - JACKLYN ADORNO MD Health Reminders - Assess BMI satisfied 07/08/2024. - Assess Tobacco Use satisfied 02/22/2016. - Follow Up Plan BMI Management satisfied 07/08/2024.
--- OUTSIDE RECORDS SUMMARY | 2025-03-08 10:23 | XMS_ITS | Clinical Summary ---
Author Organization [facility] , [facility] Address [address] [place] [address] Phone Care Team Providers Care Assistant Women'S Basketball Coach Name Role Phone Valeriy ROYAL, Yossi Blanton Unavailable [phone] JACKLYN ADORNO MD Primary Care Provider [phone] Reason for Visit and Chief Complaint The Chief Complaint is: neck/upper back pain Problems Includes: Problems addressed during this encounter and other active Problems Current Visit Onset Date Resolved Date Provider Conditio n Status Lower Back Pain 08/15/2022 Yossi Crooks MD Act brandt Last Documented On 2 8:50AM ; [facility], [facility] Past Visits Onset Date Resolved Date Provider Condition Status Upper Back Pain 10/02/2023 Yossi Crooks MD Act brandt Last Documented On 3 8:32AM ; [facility], [facility] Neck Pain 02/22/2016 Yossi Crooks MD Active Last Documented On 6 3:46PM ; [facility], [facility] Plan of Treatment Instructions to patient Lose weight Last Documented On 4 11:12AM ; [facility], [facility] Assessments Includes: Assessments from this encounter Findings - Overweight - Last Documented On 07/23/2024 12:26PM ; [facility], [facility] Instructions Includes: Instructions from this encounter Instructions to patient Lose weight Last Documented On 4 11:12AM ; [facility], [facility] Medical Equipment - Implanted Devices Includes: Current Devices No Medical Equipment Recorded Medications Includes: Medications discussed during this encounter and other current Medications Current Medications (continue as prescribed) Qulipta 10 MG Oral Tablet 06/25/2024 Provider: Eliseo Neumann APRN Diagnosis: Last Documented On 4 10:59AM By Lizzie Siegel ; [facility] Fenofibrate Micronized 134 MG Oral Capsule 06/24/2024 Provider: Olga Neumann APRN Diagnosis: Last Documented On 4 10:59AM By Lizzie Siegel ; [facility] traMADol HCl 50 MG Oral Tablet 06/24/2024 Provider: Olga Neumann APRN Diagnosis: Last Documented On 4 10:59AM By Lizzie Siegel ; [facility] HYDROcodone-Acetaminophen 7.5-325 MG Oral Tablet 10/02 Provider: Diagnosis: Last Documented On 3 12:58PM By Ana M Kessler ; [facility] ALPRAZolam 1 MG Oral Tablet 09/15/2023 Provider: Olga Neumann APRN Diagnosis: Last Documented On 3 12:54PM By Ana M Kessler ; [facility] Gabapentin 400 MG Oral Capsule 09/15/2023 Provider: Olga Neumann APRN Diagnosis: Last Documented On 3 12:54PM By Ana M Kessler ; [facility] Celecoxib 200 MG Oral Capsule 09/12/2023 Provider: Olga Neumann APRN Diagnosis: Last Documented On 3 12:54PM By Ana M Kessler ; [facility] Cetirizine HCl 10 MG Oral Tablet 09/12/2023 Provider : Olga Neumann APRN Diagnosis: Last Documented On 3 12:54PM By Ana M Kessler ; [facility] Past Medications on file oxyCODONE HCl 5 MG Oral Tablet 09/15/2024 - 09/30/2024 Provider: Yossi Crooks MD Diagnosis: 1 tab every 6 hrs prn pain 1 tab every 6 hrs prn breakthrough pain Last Documented On 4 9:07AM By Yossi Crooks ; [facility] HYDROcodone-Acetaminophen 5- 325 MG Oral Tablet 08/22/2022 - 09/06/2022 Provider: Yossi Crooks MD Diagnosis: 1 po q 6 to 8 hrs prn pain Last Documented On 2 1:39PM By Yossi Crooks ; [facility] HYDROcodone-Acetaminophen 5- 325 MG Oral Tablet 08/15/2022 - 09/14/2022 Provider: Yossi Crooks MD Diagnosis: Take 1 tablet every 8 hrs prn pain Last Documented On 2 10:12AM By Yossi Crooks ; [facility] Medications Administered Includes: Administered Medications from this encounter No Administered Medications Recorded Vital Signs Includes: Vital Signs from this encounter Vital Name 07/08/2024 11:12A Height (in) 64 Weight (lb) 234.2 Body Mass Index 40.2 Body Surface Area 2.1 Pain Level 7 Note: lc Last Documented: On 07/08/2024 11:12A M ; [facility] Results Includes: Results discussed during this encounter No Results Recorded For Specified Dates History of Present Illness Includes: History of Present Illness from this encounter NGOC Kang is a 53 year old female. [...] Priscilla Neumann Medications used for this condition: Social History Description Last Updated Not a current smoker. 10/02/2023 Last Documented On 4 11:12AM ; [facility] No caffeine use 10/02/2023 Last Documented On 4 11:12AM ; [facility] Not exercising regularly 10/02/2023 Last Documented On 4 11:12AM ; [facility] No recent change in diet 02/22/2016 Last Documented On 4 11:12AM ; [facility] Not using alcohol 02/22/2016 Last Documented On 4 11:12AM ; [facility], [facility] Not using drugs 02/22/2016 Last Documented On 4 11:12AM ; [facility], [facility] Tobacco use 02/22/2016 Last Documented On 4 11:12AM ; [facility], [facility] Smoking Status Unknown Procedures and Surgical History Includes: Procedures from this encounter Procedures Code Diagnosis Performing Provider Service L ocation Service Date use of tobacco assessment performed 1000F Last Documented On 4 11:12AM ; [facility], [facility] review of medications documented 1160F Last Documented On 4 11:12AM ; [facility], [facility] an MRI was performed 07/02/2024 [facility] MRI CSPINE [id number] Last Documented On 4 11:13AM ; [facility], [facility] Surgical History Last Updated History of total knee arthroplasty parti al 10/02/2023 Last Documented On 4 11:12AM ; [facility], [facility] History of appendectomy 10/02/2023 Last Documented On 4 11:12AM ; [facility], [facility] History of Past Surgical History: 2022 Last Documented On 4 11:12AM ; [facility], [facility] History of back surgery 02/22/2016 Last Documented On 4 11:12AM ; [facility], [facility] History of hysterectomy 02/22/2016 Last Documented On 4 11:12AM ; [facility], [facility] Medical History Includes: Medical History addressed during this encounter Description Last Updated No recent immunization for flu 2 Last Documented On 4 11:12AM ; [facility], [facility] No recent immunization for pneumococcal pneumonia 10/28/2022 Last Documented On 4 11:12AM ; [facility], [facility] Gallbladder disease 02/22/2016 Last Documented On 4 11:12AM ; [facility], [facility] History of depression 02/22/2016 Last Documented On 4 11:12AM ; [facility], [facility] Family History Includes: Family History addressed during this encounter Description Last Updated Paternal history of family history of ca ncer father 02/22/2016 Last Documented On 4 11:12AM ; [facility] Review of Systems Includes: Review of Systems from this encounter Systemic: Feeling tired. No recent weight loss. [...] and Immunologic: Complaint of seasonal allergic reaction. Mental Status Includes: Mental Status from this encounter Description Anxiety Functional Status Includes: Functional Status from this encounter No Functional Status Recorded Physical Exam Includes: Physical Exam from this encounter Allergies Includes: Active Allergies No Known Allergies Encounters Encounter Provider Location Date Check-In Time Check-Out Time Diagnosis Follow Up Yossi Crooks MD [facility] 4 10:31AM 11:54AM Overweight Insurance Includes: Active Insurance Policies Plan Name Member ID Group # Subscriber Relationship Effect brandt Dates 1 - [facility] [id number] Angelina Kang Self Clinical Notes Includes: Clinical Notes from this encounter * Progress note Date Encounter Last Documented by 07/08/2024 Follow Up Last documented on 07/23/2024; 12:26 PM, Yossi Crooks MD; [facility] Active Problems & Conditions - Lower Back [...] MRI Scan: An MRI was performed 07/02/2024 [facility]. Available previous imaging studies were reviewed [...]
--- OUTSIDE RECORDS SUMMARY | 2025-03-08 10:23 | XMS_ITS | Clinical Summary ---
Author Organization [facility] , [facility] Address [address] [place] [address] Phone Care Team Providers Care Rod Hanger Name Role Phone Valeriy ROYAL, Yossi Blanton Unavailable [phone] JACKLYN ADORNO MD Primary Care Provider [phone] Reason for Visit and Chief Complaint [Patient Encounter] Problems Includes: Problems addressed during this encounter and other active Problems All Visits Onset Date Resolved Date Provider Condition S tatus Upper Back Pain 10/02/2023 Yossi Crooks MD Act brandt Last Documented On 3 8:32AM ; [facility] Lower Back Pain 08/15/2022 Yossi Crooks MD Act brandt Last Documented On 2 8:50AM ; [facility] Neck Pain 02/22/2016 Yossi rCooks MD Active Last Documented On 6 3:46PM ; [facility] Plan of Treatment No Plan of Treatment Recorded Assessments Includes: Assessments from this encounter No Assessments Recorded Medical Equipment - Implanted Devices Includes: Current Devices No Medical Equipment Recorded Medications Includes: Medications discussed during this encounter and other current Medications New / Renewed during this visit Yossi Crooks MD on 09/15/2024 oxyCODONE HCl 5 MG Oral Tablet Provider: Yossi Crooks MD 15 day supply: 20 tablet, 0 refills Diagnosis: 1 tab every 6 hrs prn pain 1 tab every 6 hrs prn breakthrough pain Pharmacy: [facility] - [address] [place] [address] Peter Capellan, [id number] - Last Documented On 4 9:07AM By Yossi Crooks ; [facility], [facility] Current Medications (continue as prescribed) Qulipta 10 MG Oral Tablet 06/25/2024 Provider: Eliseo Neumann APRN Diagnosis: Last Documented On 4 10:59AM By Lizzie Siegel ; [facility] Fenofibrate Micronized 134 MG Oral Capsule 06/24/2024 Provider: Olga Neumann APRN Diagnosis: Last Documented On 4 10:59AM By Lizzie Siegel ; [facility] traMADol HCl 50 MG Oral Tablet 06/24/2024 Provider: Olga Neumann APRN Diagnosis: Last Documented On 4 10:59AM By Lzizie Siegel ; [facility] HYDROcodone-Acetaminophen 7.5-325 MG Oral Tablet 10/02 Provider: Diagnosis: Last Documented On 3 12:58PM By Ana M Kessler ; [facility] ALPRAZolam 1 MG Oral Tablet 09/15/2023 Provider: Olga Neumann APRN Diagnosis: Last Documented On 3 12:54PM By Ana M Kessler ; [facility] Gabapentin 400 MG Oral Capsule 09/15/2023 Provider: Olga Neumann APRN Diagnosis: Last Documented On 3 12:54PM By Ana M Kessler ; [facility] Celecoxib 200 MG Oral Capsule 09/12/2023 Provider: Olga Neumann APRN Diagnosis: Last Documented On 3 12:54PM By Ana M Kessler ; [facility] Cetirizine HCl 10 MG Oral Tablet 09/12/2023 Provider : Olga Neumann APRN Diagnosis: Last Documented On 3 12:54PM By Ana M Kessler ; [facility], [facility] Medications Administered Includes: Administered Medications from this encounter No Administered Medications Recorded Results Includes: Results discussed during this encounter No Results Recorded For Specified Dates History of Present Illness Includes: History of Present Illness from this encounter No History of Present Illness Recorded Social History No Social History Recorded - Smoking Status Unknown Medical History Includes: Medical History addressed during this encounter No Medical History Recorded Family History Includes: Family History addressed during this encounter No Family History Recorded Review of Systems Includes: Review of Systems from this encounter No Review of Systems Recorded Mental Status Includes: Mental Status from this encounter No Mental Status Recorded Functional Status Includes: Functional Status from this encounter No Functional Status Recorded Physical Exam Includes: Physical Exam from this encounter No Physical Exam Recorded Allergies Includes: Active Allergies No Known Allergies Encounters Encounter Provider Location Date Check-In Time Check-Out Time Diagnosis [Patient Encounter] Yossi Crooks MD 09/15/2024 8:48AM 11:59PM Insurance Includes: Active Insurance Policies Plan Name Member ID Group # Subscriber Relationship Effect brandt Dates 1 - [employer]et[employer] [facility] [id number] Angelina Kang Self Clinical Notes Includes: Clinical Notes from this encounter No Clinical Notes Recorded
--- OUTSIDE RECORDS SUMMARY | 2025-03-08 10:23 | XMS_ITS | Clinical Summary ---
Author Organization [facility] , [facility] Address [address] [address] Phone Care Team Providers Care Vice President Digital Strategist Name Role Phone Valeriy ROYAL, Yossi Blanton Unavailable [phone] JACKLYN ADORNO MD Primary Care Provider [phone] Reason for Visit and Chief Complaint [facility] Problems Includes: Problems addressed during this encounter and other active Problems All Visits Onset Date Resolved Date Provider Condition S tatus Upper Back Pain 10/02/2023 Yossi Crooks MD Act brandt Last Documented On 3 8:32AM ; [facility], [facility] Lower Back Pain 08/15/2022 Yossi Crooks MD Act brandt Last Documented On 2 8:50AM ; [facility], [facility] Neck Pain 02/22/2016 Yossi Crooks MD Active Last Documented On 6 3:46PM ; [facility], [facility] Plan of Treatment No Plan of [...] On 4 10:59AM By Lizzie Siegel ; [facility], [facility] Fenofibrate Micronized 134 MG Oral Capsule 06/24/2024 Provider: Olga Neumann APRN Diagnosis: Last Documented On 4 10:59AM By Lizzie Siegel ; [facility], [facility] traMADol HCl 50 MG Oral Tablet 06/24/2024 Provider: Olga Neumann APRN Diagnosis: Last Documented On 4 10:59AM By Lizzie Siegel ; [facility], [facility] HYDROcodone-Acetaminophen 7.5-325 MG Oral Tablet 10/02 Provider: Diagnosis: Last Documented On 3 12:58PM By Ana M Kessler ; [facility], [facility] ALPRAZolam 1 MG Oral Tablet 09/15/2023 Provider: Olga Neumann APRN Diagnosis: Last Documented On 3 12:54PM By Ana M Kessler ; [facility], [facility] Gabapentin 400 MG Oral Capsule 09/15/2023 Provider: Olga Neumann APRN Diagnosis: Last Documented On 3 12:54PM By Ana M Kessler ; [facility], [facility] Celecoxib 200 MG Oral Capsule 09/12/2023 Provider: Olga Neumann APRN Diagnosis: Last Documented On 3 12:54PM By Ana M Kessler ; [facility], [facility] Cetirizine HCl 10 MG Oral Tablet 09/12/2023 Provider : Olga Neumann APRN Diagnosis: Last Documented On 3 12:54PM By Ana M Kessler ; [facility], [facility] Medications Administered Includes: Administered Medications from this encounter No Administered Medications Recorded Results Includes: Results discussed during this encounter No Results Recorded For Specified Dates History of Present Illness Includes: History of Present Illness from this encounter No History of Present Illness Recorded Social History No Social History Recorded - Smoking Status Unknown Procedures and Surgical History Includes: Procedures from this encounter Procedures Code Diagnosis Performing Provider Service Location Service Date Arthodesis,anteri [place] interbody [address] Spinal stenosis, cervical region Yossi Crooks MD [facility] 09/15/2024 Last Documented On 4 1:53PM ; [facility] INSERT SPINE FIXATION DEVICE [id number] Spinal stenosis, cervical region Yossi Crooks MD [facility] 09/15/2024 Last Documented On 4 1:53PM ; [facility], [facility] SPINAL BONE ALLOGRAFT Spinal stenosis, cervical region Yossi Crooks MD [facility] 09/15/2024 Last Documented On 4 1:53PM ; [facility] Medical History Includes: Medical History addressed [...] Location Date Check-In Time Check-Out Time Diagnosis [facility] Yossi Crooks MD Surgery 4 09/21/2024 3:43PM 11:59PM Insurance Includes: Active Insurance Policies Plan Name Member ID Group # Subscriber Relationship Effect brandt Dates 1 - [employer]et[employer] [facility] [id number] Angeilna Kang Self Clinical Notes Includes: Clinical Notes from this encounter No Clinical Notes Recorded
--- OUTSIDE RECORDS SUMMARY | 2025-03-08 10:23 | XMS_ITS | Clinical Summary ---
Author Organization [facility] , [facility] Address [address] [place] [address] Phone Care Team Providers Care Soil Sampler Name Role Phone Valeriy ROYAL, Yossi Blanton Unavailable [phone] JACKLYN ADORNO MD Primary Care Provider [phone] Reason for Visit and Chief Complaint [Patient Encounter] Problems Includes: Problems addressed during this encounter and other active Problems All Visits Onset Date Resolved Date Provider Condition S tatus Upper Back Pain 10/02/2023 Yossi Crooks MD Act brandt Last Documented On 3 8:32AM ; [facility], [facility] Lower Back Pain 08/15/2022 Yossi Crooks MD Act brandt Last Documented On 2 8:50AM ; [facility], [facility] Neck Pain 02/22/2016 Yossi Crooks MD Active Last Documented On 6 3:46PM ; [facility] Plan of Treatment No Plan [...] On 4 10:59AM By Lizzie Siegel ; [facility], [facility] Fenofibrate Micronized 134 MG Oral Capsule 06/24/2024 Provider: Olga Neumann APRN Diagnosis: Last Documented On 4 10:59AM By Lizzie Siegel ; [facility] traMADol HCl 50 MG Oral Tablet 06/24/2024 Provider: Olga Neumann APRN Diagnosis: Last Documented On 4 10:59AM By Lizzie Siegel ; [facility] HYDROcodone-Acetaminophen 7.5-325 MG Oral Tablet 10/02 Provider: Diagnosis: Last Documented On 3 12:58PM By Ana M Kessler ; [facility] ALPRAZolam 1 MG Oral Tablet 09/15/2023 Provider: Olga Neumann APRN Diagnosis: Last Documented On 3 12:54PM By Ana M Kessler ; [facility] Gabapentin 400 MG Oral Capsule 09/15/2023 Provider: Olga Neumann APRN Diagnosis: Last Documented On 3 12:54PM By Ana M Kessler ; [facility] Celecoxib 200 MG Oral Capsule 09/12/2023 Provider: Olga Neumann APRN Diagnosis: Last Documented On 3 12:54PM By Ana M Kessler ; [facility] Cetirizine HCl 10 MG Oral Tablet 09/12/2023 Provider : Olga Neumann APRN Diagnosis: Last Documented On 3 12:54PM By Ana M Kessler ; [facility], [facility] Medications Administered Includes: Administered Medications from [...] Time Diagnosis [Patient Encounter] Yossi Crooks MD 07/28/2024 5:04PM 11:59PM Insurance Includes: Active Insurance Policies Plan Name Member ID Group # Subscriber Relationship Effect brandt Dates 1 - [employer]et[employer] [facility] [id number] Angelina Kang Self Clinical Notes Includes: Clinical Notes from this encounter No Clinical Notes Recorded
--- OUTSIDE RECORDS SUMMARY | 2025-03-08 10:23 | XMS_ITS ---
Author Organization Unknown Medications Date Medication Dosage DosageUnit StartDate StopDate StopReason Active DoseQuantity DoseUnit Dispense DispenseUnit Refills NdcCode DrugCode PharmacyId IsPrescription MappedMedication Srcstatus 12/03 00:00 :00 Amoxicillin -Pot Clavulanate 875-125 MG Tablet 05/25/2024 00:00:00 0 14 Tablet 0 32624 227 534 P Not Taking 10/19 00:00 :00 Amoxicillin -Pot Clavulanate 875-125 MG Tablet 05/25/2024 00:00:00 0 14 Tablet 0 46488 227 534 P Not Taking 09/03 00:00 :00 Amoxicillin -Pot Clavulanate 875-125 MG Tablet 05/25/2024 00:00:00 0 14 Tablet 0 41706 227 534 P Not Taking 07/30 00:00 :00 Amoxicillin -Pot Clavulanate 875-125 MG Tablet 05/25/2024 00:00:00 0 14 Tablet 0 95099 227 534 P Not Taking 01/27 00:00 :00 Cefdinir 300 MG Capsule 10/19/2024 00:00:00 0 20 Capsule 0 [id number] 006 P Not Taking 01/24 00:00 :00 Cefdinir 300 MG Capsule 10/19/2024 00:00:00 0 20 Capsule 0 [id number] 006 P Not Taking 07/30 00:00 :00 Dicyclomine HCl 20 MG Tablet 05/25/2024 00:00:00 0 90 [id number] 2 701 P Not Taking 09/03 00:00 :00 Doxycycline Hyclate 100 MG Capsule 07/30/2024 00:00:00 0 20 Capsule 0 [id number] 605 P Not Taking 09/03 00:00 :00 predniSONE 20 MG Tablet 07/30/2024 00:00:00 0 14 Tablet 0 30660 001 820 P Not Taking
--- OUTSIDE RECORDS SUMMARY | 2025-03-08 10:23 | XMS_ITS ---
Care Plan - [facility], [facility] Created on: March 08, 2025 Angelina Kang : 1970 Sex: Female Author Organization [facility] Address [address] [place] [address] Phone Care Team Providers Care Toe Former Stitchdowns Name Role Phone Yossi Crooks MD Unavailable [phone] JACKLYN ADORNO MD Primary Care Provider [phone]
--- OUTSIDE RECORDS SUMMARY | 2025-03-08 10:23 | XMS_ITS | Clinical Summary ---
Author Organization [facility] Address [address] [address] Phone Care Team Providers Care Filbert Grower Name Role Phone Valeriy ROYAL, Yossi Blanton Unavailable [phone] JACKLYN ADORNO MD Primary Care Provider [phone] Reason for Visit and Chief Complaint The Chief Complaint is: neck/upper back pain Problems Includes: Problems addressed during this encounter and other active Problems Current Visit Onset Date Resolved Date Provider Conditio n Status Lower Back Pain 08/15/2022 Yossi Crooks MD Act brandt Last Documented On 2 8:50AM ; [facility] Past Visits Onset Date Resolved Date Provider Condition Status Upper Back Pain 10/02/2023 Yossi Crooks MD Act brandt Last Documented On 3 8:32AM ; [facility] Neck Pain 02/22/2016 Yossi Crooks MD Active Last Documented On 6 3:46PM ; [facility], [facility] Plan of Treatment Patient was seen by myself Doug Lacy PA-C. Patient will follow up 4 weeks repeat cervical spine x-rays with Dr. Crooks. - Last Documented On 09/29/2024 11:21AM ; [facility] Pending Tests Order Diagnosis Results Due Ordering P rovider Radiology Dexascan 08/28/22 Doug Layc PA-C Last Documented On 2 2:51PM ; [facility] Instructions to patient Lose weight Last Documented On 4 10:53AM ; [facility] Assessments Includes: Assessments from this encounter Findings - Overweight - Last Documented On 09/29/2024 11:21AM ; [facility] C4-C5 ACDF 09/15/2024 - Last Documented On 09/29/2024 11:21AM ; [facility] Instructions Includes: Instructions from this encounter Instructions to patient Lose weight Last Documented On 4 10:53AM ; [facility] Medical Equipment - Implanted Devices Includes: Current Devices No Medical Equipment Recorded Medications Includes: Medications discussed during this encounter and other current Medications Discontinued / Stopped on this date Olga Neumann APRN on 09/12/2023 Topiramate 200 MG Oral Tablet Provider: Olga Neumann APRN Diagnosis: Last Documented On 4 10:40AM By Nikita Em ; [facility] Cyclobenzaprine HCl 10 MG Oral Tablet Pro vider: Olga Neumann APRN Diagnosis: Last Documented On 4 10:40AM By Nikita Em ; [facility] buPROPion HCl ER (XL) 300 MG Oral Tablet Extended Release 24 Hour Provider: Diagnosis: Last Documented On 4 10:40AM By Nikita Em ; [facility] traZODone HCl 100 MG Oral Tablet Provider : Diagnosis: Last Documented On 4 10:40AM By Nikita Em ; [facility] busPIRone HCl 10 MG Oral Tablet Provider: Diagnosis: Last Documented On 4 10:39AM By Nikita Em ; [facility] Venlafaxine HCl ER 75 MG Ora l Capsule Extended Release 24 Hour Provider: Olga Neumann APRN Diagnosis: Last Documented On 4 10:39AM By Nikita Em ; [facility] Venlafaxine HCl ER 150 MG Or al Capsule Extended Release 24 Hour Provider: Olga Neumann APRN Diagnosis: Last Documented On 4 10:39AM By Nikita Em ; [facility] Current Medications (continue as prescribed) Qulipta 10 MG Oral Tablet 06/25/2024 Provider: Je marv Kilpela CONFERENCE PLANNING MANAGER Diagnosis: Last Documented On 4 10:59AM By Lizzie Siegel ; [facility] Fenofibrate Micronized 134 MG Oral Capsule 06/24/2024 Provider: Olga Neumann APRN Diagnosis: Last Documented On 4 10:59AM By Lizzie Siegel ; [facility] traMADol HCl 50 MG Oral Tablet 06/24/2024 Provider: Olga Neumann APRN Diagnosis: Last Documented On 4 10:59AM By Lizzie Siegel ; [facility] HYDROcodone-Acetaminophen 7.5-325 MG Oral Tablet 10/02 Provider: Diagnosis: Last Documented On 3 12:58PM By Ana M Kessler ; [facility] ALPRAZolam 1 MG Oral Tablet 09/15/2023 Provider: Olga Neumann APRN Diagnosis: Last Documented On 3 12:54PM By Ana M Kessler ; [facility] Gabapentin 400 MG Oral Capsule 09/15/2023 Provider: Olga Neumann APRN Diagnosis: Last Documented On 3 12:54PM By Ana M Kessler ; [facility] Celecoxib 200 MG Oral Capsule 09/12/2023 Provider: Olga Neumann APRN Diagnosis: Last Documented On 3 12:54PM By Ana M Kessler ; [facility] Cetirizine HCl 10 MG Oral Tablet 09/12/2023 Provider : Olga Neumann APRN Diagnosis: Last Documented On 3 12:54PM By Ana M Kessler ; [facility] Past Medications on file oxyCODONE HCl 5 MG Oral Tablet 09/15/2024 - 09/30/2024 Provider: Yossi Crooks MD Diagnosis: 1 tab every 6 hrs prn pain 1 tab every 6 hrs prn breakthrough pain Last Documented On 4 9:07AM By Yossi Crooks ; [facility] HYDROcodone-Acetaminophen 5- 325 MG [...] Vital Signs from this encounter Vital Name 09/29/2024 10:54A Height (in) 64 Weight (lb) 230 Body Mass Index 39.5 Body Surface Area 2.1 Note: cd Last Documented: On 09/29/2024 10:54A M ; [facility] Results Includes: Results discussed during this encounter No Results Recorded For Specified Dates History of Present Illness Includes: History of Present Illness from this encounter NGOC Kang is a 54 year old female. [...] pain medicine in his point in time Social History Description Last Updated Tobacco non-user 10/02/2023 Last Documented On 4 10:53AM ; [facility] No recent change in diet 10/02/2023 Last Documented On 4 10:53AM ; [facility] Not a current smoker. 10/02/2023 Last Documented On 4 10:53AM ; [facility] No caffeine use 10/02/2023 Last Documented On 4 10:53AM ; [facility] Not exercising regularly 10/02/2023 Last Documented On 4 10:53AM ; [facility] Current smoker 02/22/2016 Last Documented On 4 10:53AM ; [facility] No recent change in diet 02/22/2016 Last Documented On 4 10:53AM ; [facility] Not using alcohol 02/22/2016 Last Documented On 4 10:53AM ; [facility] Not using drugs 02/22/2016 Last Documented On 4 10:53AM ; [facility] Tobacco use 02/22/2016 Last Documented On 4 10:53AM ; [facility] Smoking status : Current everyday smoker 02/22/2016 Last Documented On 4 10:53AM ; [facility] Procedures and Surgical History Includes: Procedures from this encounter Procedures Code Diagnosis Performing Provider Service Location Service Date X-RAY EXAM OF NECK SPINE 2 VIEWS 54207 Fusion of spine, cervical region Doug Lacy PA-C [facility] 09/29/2024 Last Documented On 4 1:52PM ; [facility] use of tobacco assessment performed 1000F Last Documented On 4 10:53AM ; [facility] review of medications documented 1160F Last Documented On 4 10:53AM ; [facility] an MRI was performed 07/02/2024 [facility] MRI CSPINE 60935 Last Documented On 4 10:53AM ; [facility] Surgical History Last Updated History of total knee arthroplasty parti al 10/02/2023 Last Documented On 4 10:53AM ; [facility] History of appendectomy 10/02/2023 Last Documented On 4 10:53AM ; [facility] History of Past Surgical History: 2022 Last Documented On 4 10:53AM ; [facility] History of back surgery 02/22/2016 Last Documented On 4 10:53AM ; [facility] History of hysterectomy 02/22/2016 Last Documented On 4 10:53AM ; [facility] Medical History Includes: Medical History addressed during this encounter Description Last Updated No recent immunization for flu 2 Last Documented On 4 10:53AM ; [facility] No recent immunization for pneumococcal pneumonia 10/28/2022 Last Documented On 4 10:53AM ; [facility] Gallbladder disease 02/22/2016 Last Documented On 4 10:53AM ; [facility] History of depression 02/22/2016 Last Documented On 4 10:53AM ; [facility] Family History Includes: Family History addressed during this encounter Description Last Updated Paternal history of family history of ca ncer father 02/22/2016 Last Documented On 4 10:53AM ; [facility] Review of Systems Includes: Review of [...] Time Diagnosis Post Op Doug Lacy PA-C [facility] 4 10:37AM 10:59AM Overweight Insurance Includes: Active Insurance Policies Plan Name Member ID Group # Subscriber Relationship Effect brandt Dates 1 - Ae [facility] [id number] Angelina Kang Self Clinical Notes Includes: Clinical Notes from this encounter * Progress note Date Encounter Last Documented by 09/29/2024 Post Op Last documented on 09/29/2024; 11:21 AM, Doug Lacy PA-C; [facility] Active Problems & Conditions - Lower [...] MRI Scan: An MRI was performed 07/02/2024 [facility] Available previous imaging studies were reviewed Available [...]
--- NOTE | 2025-03-08 11:12 | EXP.PAIN.SOA ---
[facility] Disclaimer: The information contained in this section may have been updated after the patient was seen, as this information can be updated by other users. Medical History HLD (hyperlipidemia) COPD (chronic obstructive pulmonary disease) Dyspnea Family History Other Unknown family medical history Social History Smoking Status: Former smoker (3 years ago) tobacco type: cigarettes packs per day: 2 second hand exposure: Yes alcohol intake: never substance use type: marijuana (used it in October around [place], going through the blues, oldest daughter not talking to her or letting her see her grandkids, talked to PCP got on medication for anxiety and depression, only used this once ) current occupational status: other (disabled related to degenerative disc disease) Travel in the last 8 weeks: None household members: spouse housing: house number of children: 3 (youngest is ) current occupational exposures/hazards: No caffeine: Yes PM Subjective & Objective Subjective Subjective:: Patient is a pleasant 54-year-old female who presents today for follow-up of her cervical medial branch block bilaterally C4-C5 and C5-C6 on 02/22/2025. Patient rates her pain today a 5 out of 10. She denies any new trauma or injury. She states that she noticed no additional improvement following these injections. She states that she actually had worsening pain and felt like she had sharp sensations with severe headache after this. Patient states that it progressively lasted about 2 weeks with a headache. She states she still has the chronic neck pain with limited range of motion and has occasionally had some tingling into her right arm however it is not constant. Patient has had an epidural in the past however did not get significant relief. patient is currently managed with alprazolam, gabapentin, [place] and Celebrex from outside providers. Patient denies any heart or kidney issues. She states that she does not notice much improvement with the Celebrex. Her Rajeev has been reviewed Review of Systems: General: No recent weight changes, no fever, no sleep disturbances Respiratory: No cough, no shortness of air, no recurring pulmonary infections Cardiovascular/peripheral vascular: No chest pain, no palpitations, no edema, no shortness of breath Gastrointestinal: No new onset incontinence, normal bowel movements reported Genitourinary: No new onset incontinence Musculoskeletal: Chronic neck pain Psychiatric: [Normal mood/affect] Neurological: [Denies weakness in extremities], [denies balance issues] Pain at rest (0-10 scale): 5 Objective Objective:: Physical Exam: General: Alert and oriented x3, no acute distress, pleasant and cooperative Lungs: Respirations even and unlabored, symmetrical chest expansion Eyes: PERRL Musculoskeletal: Flexion and extension of cervical [spine] somewhat guarded secondary to pain Neurological: Speech clear, no gross sensory deficit Has patient had previous pain injection?: Yes Percent improvement in pain since last injection: Minimal Conservative treatment options previously tried: Home exercise plan Length of treatment: Longer than 12 weeks Meds Home Medications and Allergies Home Medications ?Medication ?Instructions ?Recorded ?Confirmed ?Type atogepant 10 mg tablet (Qulipta) 10 mg PO DAILY 07/09/23 02/22/25 History celecoxib 200 mg capsule 200 mg PO DAILY 07/09/23 02/22/25 History cetirizine 10 mg tablet 10 mg PO DAILY 07/09/23 02/22/25 History cyclobenzaprine 10 mg tablet 10 mg PO TID 07/09/23 02/22/25 History gabapentin 300 mg capsule 300 mg PO TID 07/09/23 02/22/25 History levothyroxine 25 mcg tablet 25 mcg PO DAILY 07/09/23 02/22/25 History rimegepant 75 mg disintegrating 75 mg PO DIRECTED PRN . 07/09/23 02/22/25 History tablet (Nurtec ODT) topiramate 200 mg tablet 200 mg PO DAILY 07/09/23 02/22/25 History venlafaxine 150 mg 150 mg PO DAILY #30 caps 07/09/23 02/22/25 Rx capsule,extended release 24 hr (Effexor XR) venlafaxine 75 mg capsule,extended 75 mg PO .COMPLEX #30 caps 07/09/23 02/22/25 Rx release 24 hr (Effexor XR) olanzapine 5 mg tablet (Zyprexa) 5 mg PO QHS #30 tabs 07/16/23 02/22/25 Rx bupropion HCl 300 mg 24 hr tablet, 300 mg PO DAILY #30 tabs 09/01/23 02/22/25 Rx extended release (Wellbutrin XL) buspirone 10 mg tablet 10 mg PO TID #90 tabs 09/01/23 02/22/25 Rx trazodone 100 mg tablet 100 mg PO QHS PRN insomnia #30 tabs 09/02/23 02/22/25 Rx New Prescriptions to Start Prescriptions: Allergies Allergy/AdvReac Type Severity Reaction Status Date / Time No Known Allergies Allergy Verified 02/22/25 09:42 Assessment and Plan *Assessment and plan (1) Cervical spondylosis: Status: Acute Category: Medical Code(s): M47.812 - Spondylosis without myelopathy or radiculopathy, cervical region (2) Status post cervical spinal fusion: Status: Acute Category: Surgical Code(s): Z98.1 - Arthrodesis status (3) Chronic pain syndrome: Status: Acute Category: Medical Code(s): G89.4 - Chronic pain syndrome Plan I did discuss with the patient due to her worsening pain symptoms and feeling like she did not get significant relief with the far cervical medial branch block that we would not proceed forward with additional injections of that nature. I did discuss with the patient since she has no heart or kidney issues that we could try diclofenac instead of her Celebrex and see if that does help on a daily basis. Patient is agreeable to this option. She was counseled to discontinue all other anti-inflammatories while taking this medication and to take it with food to minimize GI upset. Patient will return to clinic in 2 weeks for reevaluation of symptoms and plan of care. Patient has been instructed to contact the clinic with any concerns before the next appointment. Dr. Nevarez has reviewed this note and agrees with this plan of care. This note was dictated using voice recognition software and make contain errors or omissions. All injections are used with Lidocaine, Bupivacaine and Depo Medrol. Occasionally urine drug screen is needed to verify patient's compliance with our office pain contract. This is ordered based off specific treatments related to chronic pain with the potential to abuse certain medications.
[2025-03-08 11:32] VITALS: BP 131/75; PULSE 84; RESP 14; O2SAT 98; BMI 38.4
== END 2025-03-08 23:59 | disposition home or self-care (01) ==
PROVIDERS: PCP Nurse Practitioner; Visit Provider Nurse Practitioner Family
DX: M47.812 Spondylosis without myelopathy or radiculopathy, cervical region (principal); Z98.1 Arthrodesis status; G89.4 Chronic pain syndrome; Z87.891 Personal history of nicotine dependence
CPT/HCPCS: 99212; G0463

== ENCOUNTER 2025-05-03 14:14 | Outpatient (CLI) | payer MEDICARE, OTHER, SELFPAY ==
--- NOTE | 2025-05-03 14:17 | MM_ITS ---
PROCEDURE INFORMATION: Exam: MG Bilateral Screening 3D Mammography Exam date and time: 05/03/2025 2:26 PM Age: 54 years old Clinical indication: Screening. No family history of breast cancer. TECHNIQUE: Imaging protocol: Bilateral Screening tomosynthesis and 2D mammography including computer-aided detection (CAD) when performed. COMPARISON: 1. MG DMDXUAVR DIG MAMM-DX UNIL ADD VIEWS-RT 11/19/2011 12:50 PM 2. MG DMSB DIGITAL MAMM-SCREEN BILATERAL 11/04/2011 9:20 AM 3. MG DIGMAMMDX MAMMOGRAM DX-TRAFFIC ASSISTANT N/C 07/13/2001 10:19 AM FINDINGS: MAMMOGRAPHY: Breast composition: There are scattered areas of fibroglandular density. Mass: No suspicious mass. Architectural distortion: None. Calcifications: No suspicious calcifications. Asymmetric density: None. Skin thickening: None. Axillary adenopathy: None. IMPRESSION: No mammographic evidence of malignancy. Annual screening is recommended unless otherwise clinically indicated. ASSESSMENT: BI-RADS Category 1: Negative.
== END 2025-05-03 23:59 | disposition home or self-care (01) ==
LOC: RAD 14:15
PROVIDERS: PCP Nurse Practitioner; Visit Provider Nurse Practitioner
DX: Z12.31 Encounter for screening mammogram for malignant neoplasm of breast (principal); R92.323 Mammographic fibroglandular density, bilateral breasts
CPT/HCPCS: 77063; 77067

== ENCOUNTER 2025-07-25 15:41 | Outpatient (CLI) | payer MEDICARE, OTHER, SELFPAY ==
[2025-07-25 21:09] LABS: Coronavirus 19, PCR Not Detected (NotDetected); Influenza A, PCR Not Detected (NotDetected); Influenza B, PCR Not Detected (NotDetected)
--- OUTSIDE RECORDS SUMMARY | 2025-07-26 11:05 | XMS_ITS | Clinical Summary ---
[facility] Address [address] [place] [address] Care Team Providers Care Motor Pool Clerk Name Role Phone Unavailable Primary Care Provider Unavailabl e Social History Tobacco Use Types Packs/Day Years Used Date Smoking Tobacco: Never Assessed Abuse Screen Answer Date Recorded Unsafe at Home or Work/School Not on file Feels Threatened by Someone? Not on file Does Anyone Keep You from Co ntacting Others or Doint Things Outside the Home? Not on file 08/29/2023 Physical Sign of Abuse Present Not on file 1 Housing Stability Answer Date Recorded Current Living Arrangements Not on file 08/17 Potentially Unsafe Housing Conditions Not on waqas e 08/29/2023 Family and Community Support Answer Randolph e Recorded Help with Day-to-Day Activities Not on file 08/29/2023 Lonely or Isolated Not on file 08/29/2023 Employment Answer Date Recorded Do you want help finding or keeping work or a james b? Not on file 08/29/2023 Disabilities Answer Date Recorded Concentrating, Remembering, or Making Decisions Difficulty Not on file 08/29/2023 Doing Errands Independently Difficulty Not on fi le 08/29/2023 Education Answer Date Recorded Help with school or training? Not on file Preferred Language Not on file 08/29/2023 Comments Unknown Sex and Gender Information Value Date Recorded Sex Assigned at Not on file Legal Sex Female 10:58 AM EDT Gender Identity Not on file Sexual Orientation Not on file Plan of Treatment Health Maintenance Due Date Last Done Comments ANNUAL PHYSICAL 1970 Annual Gynecologic Pelvic and Breast Exam 1970 HEPATITIS C SCREENING 1970 TDAP/TD VACCINES (1 - Tdap) 1990 MAMMOGRAM 2011 COLOGUARD 2016 COLON CANCER SCREENING 5 YEAR SIGMOIDOSCOPY 2016 COLONOSCOPY [address] CANCER SCREENING [address] COLONOGRAPHY 2016 FECAL OCCULT BLOOD TEST 2016 FIT Testing (1 year) 2016 Pneumococcal Vaccine 50+ (1 of 1 - PCV) 2021 ZOSTER VACCINE (1 of 2) 2021 COVID-19 Vaccine (1 - season) 2025 INFLUENZA VACCINE 08/17/2025
== END 2025-07-25 23:59 | disposition home or self-care (01) ==
LOC: LAB.DROPOF 07-26 10:52
PROVIDERS: PCP Nurse Practitioner; Visit Provider Nurse Practitioner
DX: J06.9 Acute upper respiratory infection, unspecified (principal)
CPT/HCPCS: 87631

== ENCOUNTER 2025-08-09 08:32 | Outpatient (CLI) | payer MEDICARE, OTHER, SELFPAY ==
--- NOTE | 2025-08-09 08:33 | CT_ITS ---
FINAL REPORT TECHNIQUE: Thin section axial images are obtained through the abdomen and pelvis after intravenous contrast. Reconstruction images were obtained from the axial data. Exam was performed using dose reduction techniques. CLINICAL HISTORY: ABD PAIN COMPARISON: 05/01/2021 FINDINGS: LUNG BASES: There are ground glass opacities in the left lower lobe which could be infectious or inflammatory. Heart size is normal. LIVER: Liver is fatty infiltrated and enlarged without focal lesion. GALLBLADDER/BILIARY SYSTEM: Gallbladder is absent. No biliary dilatation. SPLEEN: Unremarkable. PANCREAS: Unremarkable. ADRENALS: Right adnexal nodule is unchanged from 2020 and likely benign. Left adrenal gland is unremarkable. KIDNEYS/URETERS/BLADDER: Bilateral, nonobstructing renal stones without hydronephrosis or renal mass. Unremarkable urinary bladder. GI TRACT: No small bowel obstruction or dilatation. Normal appendix. Diverticulosis without evidence of diverticulitis. No acute colon abnormality. PELVIC ORGANS: Unremarkable for age. Previously seen right adnexal mass is no longer identified. LYMPH NODES/RETROPERITONEUM/MESENTERY: Mildly prominent inguinal lymph nodes, likely reactive. No abdominal aortic aneurysm. ABDOMINAL WALL: Left paraumbilical, fat-containing ventral hernia, unchanged from prior exam. FREE FLUID: No ascites. BONES: No acute osseous abnormality. IMPRESSION: 1. No acute process of the abdomen or pelvis. 2. Interval resolution of right adnexal mass. 3. Ground glass opacities in the left lower lobe, favor infectious or inflammatory. Reviewed, Interpreted and Dictated by Roxanne Farias MD Transcribed by Mali Long Authenticated and [facility]
--- OUTSIDE RECORDS SUMMARY | 2025-08-09 08:54 | XMS_ITS | Clinical Summary ---
[facility] Address [address] [place] [address] Care Team Providers Care Dyehouse Worker Name Role Phone Unavailable Primary Care Provider [...] 2021 ZOSTER VACCINE (1 of 2) 2021 INFLUENZA VACCINE 06/17/2025
[2025-08-09] MEDS: IOPAMIDOL-370 (76%);100ML BOTTLE 75 ML IV (09:04)
[2025-08-09] MEDS: SODIUM CHLORIDE 0.9% 10ML SYR (RAD ONLY) 10 ML IV (09:04)
== END 2025-08-09 23:59 | disposition home or self-care (01) ==
LOC: RAD 08:32
PROVIDERS: PCP Nurse Practitioner; Visit Provider Nurse Practitioner
DX: R91.8 Other nonspecific abnormal finding of lung field (principal); N94.89 Other specified conditions associated with female genital organs and menstrual cycle; R10.9 Unspecified abdominal pain
CPT/HCPCS: 74177; Q9967

== ENCOUNTER 2025-09-14 09:38 | Outpatient (CLI) | payer MEDICARE, OTHER, SELFPAY ==
[2025-09-14 09:41] LABS: Clostridium Difficile A/B, PCR Not Detected (NotDetected); Cyclospora Cayetanesis Not Detected (NotDetected); Salmonella, PCR Not Detected (NotDetected); Shiga-like toxin E coli Not Detected (NotDetected); Shigella Enterovasive E coli Not Detected (NotDetected); Vibrio, PCR Not Detected (NotDetected); Yersinia Entercolitica, PCR Not Detected (NotDetected)
--- OUTSIDE RECORDS SUMMARY | 2025-09-14 10:03 | XMS_ITS | Clinical Summary ---
[facility] Address [address] [place] [address] Care Team Providers Care Warp Tension Tester Name Role Phone Unavailable Primary Care Provider [...]
[2025-09-16 18:15] LABS: Pancreatic Elastase, Fecal >800 (>200)
== END 2025-09-14 23:59 | disposition home or self-care (01) ==
LOC: LAB 09:38
PROVIDERS: PCP Nurse Practitioner; Visit Provider Nurse Practitioner Family
DX: R19.7 Diarrhea, unspecified (principal); R14.0 Abdominal distension (gaseous)
CPT/HCPCS: 82653; 87506

== ENCOUNTER 2025-09-17 10:06 | Outpatient (CLI) | payer MEDICARE, OTHER, SELFPAY ==
--- OUTSIDE RECORDS SUMMARY | 2025-09-19 10:17 | XMS_ITS | Clinical Summary ---
[facility] Address [address] [place] [address] Care Team Providers Care Wedding Coordinator Name Role Phone Unavailable Primary Care Provider [...]
== END 2025-09-17 23:59 ==
LOC: LAB.DROPOF 09-19 10:06
PROVIDERS: PCP Nurse Practitioner; Visit Provider Nurse Practitioner Family
DX: J02.9 Acute pharyngitis, unspecified (principal)
CPT/HCPCS: 87070; 87077

== ENCOUNTER 2025-09-27 11:38 | Outpatient (CLI) | payer MEDICARE, OTHER, SELFPAY ==
--- OUTSIDE RECORDS SUMMARY | 2025-09-27 11:40 | XMS_ITS | Clinical Summary ---
Author Organization [facility] Address [address] [place] [address] Care Team Providers Care Nanosystems Engineer Name Role Phone Unavailable Primary Care Provider [...]
--- NOTE | 2025-09-27 11:42 | XR_ITS ---
FINAL REPORT TECHNIQUE: Chest 2 views CLINICAL HISTORY: PNEUMONIA cough/soa COMPARISON: 11/07/2020 FINDINGS: CHEST 2 VIEWS No acute pulmonary density is evident. There is no evidence of effusion or other pleural disease. The mediastinum has a normal appearance. The cardiac silhouette is unremarkable. IMPRESSION: Unremarkable chest exam. Reviewed, Interpreted and Dictated by Refugio Velasquez MD Transcribed by Ana Amaya Authenticated and [facility]
== END 2025-09-27 23:59 | disposition home or self-care (01) ==
LOC: RAD 11:39
PROVIDERS: PCP Nurse Practitioner; Visit Provider Nurse Practitioner
DX: J18.9 Pneumonia, unspecified organism (principal)
CPT/HCPCS: 71046